=== PATIENT | male | born 1965 | race Caucasian/White ===

== ENCOUNTER 2021-04-21 09:45 | Outpatient (REF) | payer BC, SELFPAY ==
[2021-04-21 09:49] LABS: MANUAL DIFF FLAG NO
[2021-04-21 10:38] LABS: Basophils Absolute Auto 0.1 X10*3/uL (0.0-0.2); Basophils Percent Auto 1.2 % (0-2); Eosinophils Absolute Auto 0.2 X10*3/uL (0.0-0.4); Hematocrit 48.9 % (42.0-52.0); Hemoglobin 16.8 g/dl (14.0-18.0); Imm Gran Abs Auto 0.04 X10*3/uL (0.00-0.03); Imm Gran Pct Auto 0.6 % (0.0-0.4); Lymphocytes Absolute Auto 1.7 X10*3/uL (1.2-4.9); Lymphocytes Percent Auto 24.8 % (20-40); Mean Corpuscular HGB Conc 34.4 g/dl (31.0-36.0); Mean Corpuscular Hemoglobin 29.9 pg (27.0-33.0); Mean Corpuscular Volume 87.2 fL (80.0-98.0); Mean Platelet Volume 10.8 fL (9.4-12.4); Monocytes Absolute Auto 0.9 X10*3/uL (0.1-1.2); Neutrophils Percent Auto 57.4 % (45-73); Platelet Count 336 X10*3/uL (160-400); Red Blood Count 5.61 X10*6/uL (4.60-5.80); Red Cell Distribution Width 12.2 % (11.0-16.0); White Blood Count 6.9 X10*3/uL (4.8-10.8)
[2021-04-21 10:46] LABS: Estimated Average Glucose 111 mg/dL; Hemoglobin A1C 152.5518 umol/L; Hemoglobin A1c % 5.5 %
[2021-04-21 10:51] LABS: Alanine Aminotransferase 46 U/L (0-40); Albumin Level 4.5 g/dL (3.5-5.0); Alkaline Phosphatase 89 U/L (39-117); Anion Gap 13 (12-20); Aspartate Amino Transferase 21 U/L (5-37); Bilirubin Total 0.7 mg/dL (0.0-1.0); Blood Urea Nitrogen 11 mg/dL (9-16); Calcium 9.8 mg/dL (8.4-10.2); Carbon Dioxide 27 mmol/L (22-29); Chloride 106 mmol/L (96-108); Cholesterol 173 mg/dL; Estimated Glomerular Filt Rate > 60; Glucose Fasting 111 mg/dL (60-99); HDL Cholesterol 40 mg/dL; LDL Cholesterol Calculated 108 mg/dl; Potassium 4.2 mmol/L (3.3-5.1); Sodium 142 mmol/L (135-145); Total Protein 7.2 g/dL (6.5-8.0); Triglycerides 127 mg/dL
[2021-04-21 11:09] LABS: Appearance Urine CLEAR; Color Urine YELLOW; Glucose Urine UA NEG (NEG); Leukocyte Esterase Urine NEG (NEG); Nitrite Urine NEG (NEG); PH 7.5 (5.0-8.0); Specific Gravity - Urine 1.015 (1.005-1.025); Urine Blood NEG (NEG); Urine Ketones NEG (NEG); Urine Protein NEG (NEG-TRACE)
[2021-04-21 11:14] LABS: Creatinine Urine 102.13 mg/dL; Microalbum/Creatinine Ratio Ur 19.5 ug/mg cr
[2021-04-21 11:16] LABS: PSA,Total (Free>4and<10) 2.06 ng/mL (0.00-4.00)
[2021-04-21 12:27] LABS: Reflex LDLD? No
== END 2021-04-21 09:46 | disposition home or self-care (01) ==
LOC: HO.LNP 09:45
PROVIDERS: PCP Internal Medicine; Visit Provider Internal Medicine
DX: Z00.00 Encounter for general adult medical examination without abnormal findings (principal); R79.89 Other specified abnormal findings of blood chemistry; R73.09 Other abnormal glucose; E78.00 Pure hypercholesterolemia, unspecified
CPT/HCPCS: 80053; 80061; 81003; 82043; 83036; 84153; 85025

== ENCOUNTER 2021-10-16 07:39 | Day surgery (SDC) | payer BC, SELFPAY ==
[2021-10-12 11:52] VITALS: BMI 26.2
--- NOTE | 2021-10-14 12:01 | HO.ANESPROP2 ---
Documented by User: Chery Koo NP 10/14/21 12:01 HPI - Anesthesia Eval Consult details Narrative: 55yo M for Colonoscopy [facility] Past Medical History Medical History Elevated blood sugar Elevated cholesterol Surgical History Surgical History Hx of colonoscopy Social History Social History Patient Tobacco Use Status: Former Tobacco user Quit Date: 6 yrs ago Use of substances other than those prescribed or required for medical reasons: No Are you DNR?: No Advance Directives: No Advance Directives Information Provided: Yes Meds Allergies Allergy/AdvReac Type Severity Reaction Status Date / Time No Known Allergies Allergy Unverified 10/12/21 11:51 Home Medications Medication Instructions Recorded Confirmed Last Taken Type atorvastatin 80 mg tablet 80 mg PO DAILY 10/12/21 10/12/21 Unknown History Exam Exam Date and Time: October 14, 2021 1201 Height,Weight and Vital Signs: Height 6 ft 1.5 in Weight 91.172 kg Assessment and Plan Assessment Anesthesia Assessment: Chart Reviewed Documented by User: Shanti Muhammad MD 10/16/21 08:19 [facility] Past Medical History Medical History Elevated blood sugar Elevated cholesterol Family History Family history of problems with anesthesia: No Surgical History Surgical History Hx of colonoscopy History of Problems with Anesthesia: No Social History Social History Patient Tobacco Use Status: Former Tobacco user Quit Date: 6 yrs ago Use of substances other than those prescribed or required for medical reasons: No Are you DNR?: No Advance Directives: No Advance Directives Information Provided: Yes Meds Allergies Allergy/AdvReac Type Severity Reaction Status Date / Time No Known Allergies Allergy Unverified 10/12/21 11:51 Home Medications Medication Instructions Recorded Confirmed Last Taken Type atorvastatin 80 mg tablet 80 mg PO DAILY 10/12/21 10/12/21 Unknown History Exam Airway Mallampati Class: II TM Dist: >3cm Neck ROM: Full Heart: rrr Lungs: cta Assessment and Plan Assessment Anesthesia Assessment: Anesthesia Plan Discussed and Chart Reviewed Final Anesthetic Review Family History of Problems with Anesthesia: No History of Problems with Anesthesia: No NPO: Yes ASA Class: II Final Preanesthetic Review: No Changes in Pt Med Stat, Meds/Allgs Chart Reviewed and Consent Obtained/Reviewed Patient Risk: Intermediate Procedure Risk: Intermediate Anesthetic Plan Disposition: Standard PACU
[2021-10-16 08:23] VITALS: BP 173/109; PULSE 85; RESP 16; TEMP 36.9; O2SAT 98
[2021-10-16] MEDS: Lactated Ringers 1,000 ML 100 ML IVCONT (08:35)
--- NOTE | 2021-10-16 08:36 | P.HPSUR_ITS ---
Pre-Procedural Eval Section A Date of Service: 10/16/21 Section B Chief Complaint: screening Details of Present Illness: see H&P no changes Relevant Family History (Specify if Yes): No Relevant Social History: None Present Medications: None Medical History: No relevant PMH History of Previous Operations: No relevant previous surgery Allergies: Allergies Allergy/AdvReac Type Severity Reaction Status Date / Time No Known Allergies Allergy Unverified 10/12/21 11:51 Review of Systems Sugical H&P ROS: Negative: Constitution, Cardiovascular, Respiratory, Neurological, Psychiatric, Hem-Onc, Allergic/Immunologic, Gastrointestinal, Kassi tourinary, Musculoskeletal, Integumentary, Endocrine and Eyes/Ears/Nose/Throat Exam Surgical H&P Exam: Normal: HEENT, Normal: Heart, Normal: Lungs, Normal: Extremities, Normal: Abdomen, Normal: Skin and Normal: Neurological Plan Diagnosis/Plan: Unchanged I have reviewed the history and physical and performed a pertinent physical examination on my patient. No changes have occurred unless specified.
[2021-10-16 09:49] VITALS: BP 127/90; PULSE 99; RESP 20; TEMP 36.4; O2SAT 96
--- NOTE | 2021-10-16 09:51 | P.BOP_ITS ---
Brief Operative Note Date of Service: 10/16/21 Pre-op diagnosis: screening Post-op diagnosis: same (polyps) Procedure: colonoscopy Surgeon: Georges Aguirre Anesthesia: MAC Was an Meat Cutter Apprentice used for this Procedure?: No Estimated blood loss (mL): 5 Pathology: other (see req) Condition: stable Disposition: PACU
[2021-10-16 10:04] VITALS: BP 147/95; PULSE 99; RESP 17; O2SAT 98
[2021-10-16 10:19] VITALS: BP 158/106; PULSE 76; RESP 17; TEMP 36.4; O2SAT 98
--- NOTE | 2021-10-16 11:28 | OP_ITS ---
SURGEON: Georges Aguirre MD INDICATIONS: Colon cancer screening and prior history of adenomatous colon polyps. PREOPERATIVE DIAGNOSIS: POSTOPERATIVE DIAGNOSIS: PROCEDURE PERFORMED: Colonoscopy to the terminal ileum with snare polypectomy and biopsy. ESTIMATED BLOOD LOSS: COMPLICATIONS: ANESTHESIA: ASSISTANTS: SPECIMENS: MEDICATIONS: Monitored anesthesia care. DESCRIPTION OF PROCEDURE: History and physical were performed. The risks and benefits of the procedure were explained to the patient. Informed consent was obtained. The patient was placed in the left lateral decubitus position. A digital rectal exam was performed and was found to be normal. The Olympus pediatric video colonoscope was introduced into the rectum and advanced to the cecum without difficulty. The cecum was identified by transillumination, palpation, and identification of ileocecal valve. Examination was performed and the scope was removed. He tolerated the procedure well and was taken to recovery area in stable condition. FINDINGS: The terminal ileum was normal. The visualized colonic mucosa was normal. The quality of the prep was good. There were multiple polyps, which were removed with a combination of snare and biopsy forceps. At 85 cm, a single polyp was snared. At 65 cm, there were 3 polyps, the largest measuring approximately 12 mm, which was pedunculated. This was snared and the base was cauterized. Two other polyps were removed measuring less than 10 mm. At 60 cm, a single polyp was removed with biopsy forceps. At 30 cm were 2 polyps, which were snared and in the rectum was 1 polyp, which was removed with a snare. All polyps were less than 10 mm except as described above, but there was mild sigmoid diverticulosis with scattered diverticula throughout the remainder of the colon. Retroflexed examination was normal. IMPRESSION: Colon polyps. RECOMMENDATION: Follow up the biopsy results. MD BIANCA Malik/SHENA / [phone]
== END 2021-10-16 11:39 | disposition home or self-care (01) ==
PROVIDERS: PCP Internal Medicine; Visit Provider Internal Medicine Gastroenterology
PROC: 0DJD8ZZ Inspection of Lower Intestinal Tract, Via Natural or Artificial Opening Endoscopic (ICD-10-PCS; CPT 45378; principal; 2021-10-16 09:00)
DX: Z12.11 Encounter for screening for malignant neoplasm of colon (principal); Z86.010 Personal history of colon polyps; D12.3 Benign neoplasm of transverse colon; D12.4 Benign neoplasm of descending colon; D12.5 Benign neoplasm of sigmoid colon; K57.30 Diverticulosis of large intestine without perforation or abscess without bleeding; E78.00 Pure hypercholesterolemia, unspecified; R73.9 Hyperglycemia, unspecified; Z79.899 Other long term (current) drug therapy; Z87.891 Personal history of nicotine dependence
CPT/HCPCS: 45385; 45380; 88305

== ENCOUNTER 2021-10-20 11:23 | Outpatient (REF) | payer BC, SELFPAY ==
[2021-10-20 12:03] LABS: Alanine Aminotransferase 43 U/L (0-40); Albumin Level 4.3 g/dL (3.5-5.0); Alkaline Phosphatase 83 U/L (39-117); Aspartate Amino Transferase 20 U/L (5-37); Bilirubin Direct 0.3 mg/dL (0.0-0.5); Bilirubin Total 0.8 mg/dL (0.0-1.0); Cholesterol 268 mg/dL; Estimated Average Glucose 111 mg/dL; Glucose Fasting 114 mg/dL (60-99); HDL Cholesterol 47 mg/dL; Hemoglobin A1c % 5.5 %; LDL Cholesterol Calculated 196 mg/dl; Total Protein 7.2 g/dL (6.5-8.0); Triglycerides 125 mg/dL
== END 2021-10-20 11:24 | disposition home or self-care (01) ==
LOC: HO.LNP 11:23
PROVIDERS: Visit Provider Internal Medicine
DX: E78.00 Pure hypercholesterolemia, unspecified (principal); R73.03 Prediabetes
CPT/HCPCS: 80061; 80076; 82947; 83036

== ENCOUNTER 2022-04-20 11:49 | Outpatient (REF) | payer BC, SELFPAY ==
[2022-04-20 11:53] LABS: MANUAL DIFF FLAG NO
[2022-04-20 12:23] LABS: Basophils Absolute Auto 0.1 X10*3/uL (0.0-0.2); Basophils Percent Auto 1.2 % (0-2); Eosinophils Absolute Auto 0.2 X10*3/uL (0.0-0.4); Hematocrit 49.4 % (42.0-52.0); Hemoglobin 16.6 g/dl (14.0-18.0); Imm Gran Abs Auto 0.06 X10*3/uL (0.00-0.03); Imm Gran Pct Auto 0.8 % (0.0-0.4); Lymphocytes Percent Auto 26.5 % (20-40); Mean Corpuscular HGB Conc 33.6 g/dl (31.0-36.0); Mean Corpuscular Hemoglobin 29.4 pg (27.0-33.0); Mean Corpuscular Volume 87.4 fL (80.0-98.0); Mean Platelet Volume 10.3 fL (9.4-12.4); Monocytes Absolute Auto 0.9 X10*3/uL (0.1-1.2); Monocytes Percent Auto 12.2 % (2-11); Neutrophils Absolute Auto 4.2 x10*3/uL (2.0-8.3); Neutrophils Percent Auto 57.3 % (45-73); Platelet Count 266 X10*3/uL (160-400); Red Blood Count 5.65 X10*6/uL (4.60-5.80); Red Cell Distribution Width 12.4 % (11.0-16.0); White Blood Count 7.4 X10*3/uL (4.8-10.8)
[2022-04-20 12:31] LABS: Estimated Average Glucose 111 mg/dL; Hemoglobin A1c % 5.5 %
[2022-04-20 12:41] LABS: Alanine Aminotransferase 44 U/L (0-40); Albumin Level 4.5 g/dL (3.5-5.0); Alkaline Phosphatase 89 U/L (39-117); Anion Gap 15 (12-20); Appearance Urine Clear; Aspartate Amino Transferase 23 U/L (5-37); Bilirubin Total 1.1 mg/dL (0.0-1.0); Blood Urea Nitrogen 12 mg/dL (9-16); Calcium 9.5 mg/dL (8.4-10.2); Carbon Dioxide 26 mmol/L (22-29); Chloride 106 mmol/L (96-108); Cholesterol 145 mg/dL; Color Urine Yellow; Estimated Glomerular Filt Rate > 60; Glucose Fasting 108 mg/dL (60-99); Glucose Urine UA Negative (Negative); HDL Cholesterol 40 mg/dL; LDL Cholesterol Calculated 88 mg/dl; Leukocyte Esterase Urine Negative (Negative); Nitrite Urine Negative (Negative); Potassium 3.9 mmol/L (3.3-5.1); Sodium 143 mmol/L (135-145); Specific Gravity - Urine 1.025 (1.005-1.025); Total Protein 7.1 g/dL (6.5-8.0); Triglycerides 87 mg/dL; Urine Blood Negative (Negative); Urine Ketones Trace mg/dL (Negative); Urine Protein Trace mg/dL (Neg-Trace)
[2022-04-20 12:45] LABS: Bacteria Urine None Seen (None Seen); RBC Urine 0-2 /HPF (0-2); Squamous Epithelial Cell Urine 0-2 /HPF (0-2); WBC Urine 0-5 /HPF (0-5)
[2022-04-20 12:51] LABS: Creatinine Urine 275.09 mg/dL
== END 2022-04-20 11:50 | disposition home or self-care (01) ==
LOC: HO.LNP 11:49
PROVIDERS: Visit Provider Internal Medicine
DX: Z00.00 Encounter for general adult medical examination without abnormal findings (principal); Z12.5 Encounter for screening for malignant neoplasm of prostate; R73.03 Prediabetes; E78.00 Pure hypercholesterolemia, unspecified
CPT/HCPCS: 80053; 80061; 81001; 82043; 83036; 84153; 85025

== ENCOUNTER 2022-12-16 12:07 | Outpatient (REF) | payer BC, SELFPAY ==
[2022-12-16 14:05] LABS: Alanine Aminotransferase 41 U/L (0-40); Albumin Level 4.2 g/dL (3.5-5.0); Alkaline Phosphatase 69 U/L (39-117); Aspartate Amino Transferase 24 U/L (5-37); Bilirubin Direct 0.3 mg/dL (0.0-0.5); Bilirubin Total 0.6 mg/dL (0.0-1.0); Cholesterol 148 mg/dL; HDL Cholesterol 39 mg/dL; LDL Cholesterol Calculated 92 mg/dl; Total Protein 7.1 g/dL (6.5-8.0); Triglycerides 85 mg/dL
== END 2022-12-16 12:08 | disposition home or self-care (01) ==
LOC: HO.LNP 12:07
PROVIDERS: Visit Provider Internal Medicine
DX: E78.00 Pure hypercholesterolemia, unspecified (principal)
CPT/HCPCS: 80061; 80076

== ENCOUNTER 2023-04-29 10:15 | Outpatient (REF) | payer BC, SELFPAY ==
[2023-04-29 10:20] LABS: MANUAL DIFF FLAG NO
[2023-04-29 10:27] LABS: Basophils Absolute Auto 0.1 X10*3/uL (0.0-0.2); Basophils Percent Auto 0.7 % (0-2); Eosinophils Absolute Auto 0.2 X10*3/uL (0.0-0.4); Eosinophils Percent Auto 3.2 % (0-4); Hematocrit 48.8 % (42.0-52.0); Hemoglobin 16.6 g/dl (14.0-18.0); Imm Gran Abs Auto 0.03 X10*3/uL (0.00-0.03); Imm Gran Pct Auto 0.4 % (0.0-0.4); Lymphocytes Absolute Auto 1.6 X10*3/uL (1.2-4.9); Lymphocytes Percent Auto 21.9 % (20-40); Mean Corpuscular Hemoglobin 29.7 pg (27.0-33.0); Mean Corpuscular Volume 87.5 fL (80.0-98.0); Mean Platelet Volume 10.2 fL (9.4-12.4); Monocytes Absolute Auto 0.9 X10*3/uL (0.1-1.2); Monocytes Percent Auto 11.9 % (2-11); Neutrophils Absolute Auto 4.5 x10*3/uL (2.0-8.3); Neutrophils Percent Auto 61.9 % (45-73); Platelet Count 322 X10*3/uL (160-400); Red Blood Count 5.58 X10*6/uL (4.60-5.80); Red Cell Distribution Width 12.3 % (11.0-16.0); White Blood Count 7.2 X10*3/uL (4.8-10.8)
[2023-04-29 10:39] LABS: Appearance Urine Clear; Color Urine Yellow; Glucose Urine UA Negative (Negative); Leukocyte Esterase Urine Negative (Negative); Nitrite Urine Negative (Negative); PH 5.5 (5.0-9.0); Specific Gravity - Urine >= 1.030 (1.005-1.025); Urine Blood Negative (Negative); Urine Ketones Negative (Negative); Urine Protein Trace mg/dL (Neg-Trace)
[2023-04-29 10:41] LABS: Alanine Aminotransferase 61 U/L (0-40); Albumin Level 4.3 g/dL (3.5-5.0); Alkaline Phosphatase 66 U/L (39-117); Anion Gap 11 (12-20); Aspartate Amino Transferase 27 U/L (5-37); Bilirubin Total 0.8 mg/dL (0.0-1.0); Blood Urea Nitrogen 24 mg/dL (9-16); Calcium 9.7 mg/dL (8.4-10.2); Carbon Dioxide 29 mmol/L (22-29); Chloride 109 mmol/L (96-108); Cholesterol 141 mg/dL (<200); Estimated Glomerular Filt Rate > 60; Glucose Fasting 122 mg/dL (60-99); HDL Cholesterol 38 mg/dL (>40); LDL Cholesterol Calculated 88 mg/dL (<100); Potassium 3.9 mmol/L (3.3-5.1); Sodium 145 mmol/L (135-145); Total Protein 7.2 g/dL (6.5-8.0); Triglycerides 76 mg/dL (<150)
[2023-04-29 10:48] LABS: Estimated Average Glucose 117 mg/dL; Hemoglobin A1c % 5.7 % (<6.0)
[2023-04-29 11:04] LABS: Prostate Specific Antigen 3.07 ng/mL (<0.05-4.0)
[2023-04-29 11:05] LABS: Creatinine Urine 289.35 mg/dL; Microalbum/Creatinine Ratio Ur 6.9 ug/mg cr (<30)
[2023-04-29 11:11] LABS: WBC Urine 0-5 /HPF (0-5)
[2023-04-29 11:12] LABS: Bacteria Urine None Seen (None Seen); Hyaline Casts Urine 0-2 /LPF (0-2); RBC Urine 0-2 /HPF (0-2); Squamous Epithelial Cell Urine 0-2 /HPF (0-2)
== END 2023-04-29 10:16 | disposition home or self-care (01) ==
LOC: HO.LNP 10:15
PROVIDERS: Visit Provider Internal Medicine
DX: Z00.00 Encounter for general adult medical examination without abnormal findings (principal); Z12.5 Encounter for screening for malignant neoplasm of prostate; I10 Essential (primary) hypertension; E78.00 Pure hypercholesterolemia, unspecified; R73.03 Prediabetes
CPT/HCPCS: 80053; 80061; 81001; 82043; 82570; 83036; 84153; 85025

== ENCOUNTER 2023-07-11 08:29 | Outpatient (REF) | payer BC, SELFPAY ==
--- NOTE | ~2023-07-11 | FL_ITS ---
EXAMINATION: XR FLUOROSCOPY UPPER GI WITH AIR CLINICAL INFORMATION: Dysphagia. Reflux COMPARISON: None TECHNIQUE: Fluoroscopic air contrast upper GI examination was performed utilizing standard techniques with thin and thick barium and effervescent granules. Numerous spot images were obtained. FINDINGS: Lateral cine images of the oropharynx and hypopharynx demonstrate normal swallow mechanism with normal epiglottic inversion and soft palate elevation. There is trace laryngeal penetration with thick barium. No subglottic penetration or aspiration identified. Trace nasopharyngeal reflux present. Hypopharyngeal structures appear normal without evidence of mass or diverticulum. Persistent pooling of contrast noted in the vallecula and piriform sinuses, which cleared upon subsequent swallows. There was no significant cricopharyngeal achalasia. Dual and single contrast images of the esophagus demonstrate normal caliber, and contour. There is felinization of the mid and distal esophagus. No evidence of stricture, mass, or ulcerations identified. Esophageal peristalsis was normal. A small type I hiatal hernia is present. Gastroesophageal reflux is seen up to the thoracic inlet. Dual contrast and single contrast images of the stomach demonstrated a normal contour. Normal rugal fold pattern. No evidence of mass or ulcerations. Contrast freely passed into the gastric antrum and duodenal bulb without delay. Single and air-contrast images of the duodenal bulb demonstrate no abnormality. There is persistent thickening of folds in the first segment of the duodenum, which appear to persist throughout the exam (See example RF #1-7, image 10 of 10). This could indicate underlying peptic disease or residua of old peptic disease. The remainder of the duodenum has a normal appearance, course, and mucosal fold appearance. The imaged proximal jejunum has a normal fold pattern and caliber. No malrotation evident. FLUOROSCOPY TIME: 4 minutes 56 seconds Number of Spot Images: 10 Number of Cine: 10 DOSE AREA PRODUCT: 3522 uGy-m2 (microgray-meter squared) FL/FL barium swallow IMPRESSION: 1. Trace laryngeal penetration with thick barium. No subglottic or glottic aspiration. 2. Felinization of the mid distal esophagus. This is usually associated with reflux. 3. Small type I hiatal hernia 4. Moderate gastroesophageal reflux 5. Persistently thickened folds in the first segment of the duodenum, raising possibility of current or old peptic disease. Recommend correlation with EGD. This procedure was performed by Karri Moreira PA-C, and supervised by Dr. Carcamo
== END 2023-07-11 08:30 | disposition home or self-care (01) ==
LOC: HO.XRAY 08:29
PROVIDERS: PCP Internal Medicine; Visit Provider Internal Medicine
DX: R13.19 Other dysphagia (principal)
CPT/HCPCS: 74220

== ENCOUNTER → 2023-07-11 08:31 | Outpatient (BNV) | payer BC, SELFPAY | PROVIDERS: PCP Internal Medicine; Visit Provider Radiology Diagnostic Radiology | DX: R13.10 Dysphagia, unspecified (principal); K21.9 Gastro-esophageal reflux disease without esophagitis | CPT/HCPCS: 74221 ==

== ENCOUNTER 2023-08-04 11:27 | Outpatient (REF) | payer BC, SELFPAY ==
[2023-08-04 12:40] LABS: PSA,Total (Free>4and<10) 2.86 ng/mL (0.00-4.00)
[2023-08-04 12:42] LABS: TSH reflex Free T4 1.71 uIU/mL (0.32-4.0)
== END 2023-08-04 11:28 | disposition home or self-care (01) ==
LOC: HO.LNP 11:27
PROVIDERS: Visit Provider Internal Medicine
DX: Z12.5 Encounter for screening for malignant neoplasm of prostate (principal); R97.20 Elevated prostate specific antigen [PSA]
CPT/HCPCS: 84153; 84443

== ENCOUNTER 2023-11-04 12:11 | Outpatient (REF) | payer BC, SELFPAY ==
[2023-11-04 13:38] LABS: Estimated Average Glucose 117 mg/dL; Hemoglobin A1c % 5.7 % (<6.0)
[2023-11-04 13:47] LABS: Alanine Aminotransferase 46 U/L (0-40); Albumin Level 4.1 g/dL (3.5-5.0); Alkaline Phosphatase 64 U/L (39-117); Aspartate Amino Transferase 24 U/L (5-37); Bilirubin Direct 0.2 mg/dL (0.0-0.5); Bilirubin Total 0.7 mg/dL (0.0-1.0); Cholesterol 158 mg/dL (<200); Glucose Fasting 111 mg/dL (60-99); HDL Cholesterol 41 mg/dL (>40); LDL Cholesterol Calculated 99 mg/dL (<100); Total Protein 6.7 g/dL (6.5-8.0); Triglycerides 91 mg/dL (<150)
== END 2023-11-04 12:12 | disposition home or self-care (01) ==
LOC: HO.LNP 12:11
PROVIDERS: Visit Provider Internal Medicine
DX: R73.09 Other abnormal glucose (principal); E78.00 Pure hypercholesterolemia, unspecified
CPT/HCPCS: 80061; 80076; 82947; 83036

== ENCOUNTER 2023-12-20 10:04 | Outpatient (AMB) | payer BC, SELFPAY ==
--- NOTE | 2023-12-20 10:14 | MHC.OFFVIS ---
Vital Signs 12/20/23 10:23 Height 6 ft 2 in Weight 215 lb BMI 27.6 BP 150/8 H Blood Pressure Location Lt brachial Position Sitting Pulse 64 Intake Visit Reasons: infected sebaceous cyst groin area Intake Note: Patient is seen in office for evaluation of an infected cyst of the groin. Pt c/o:onset Tuesday right groin cyst, at the time was red, sore, hard to the touch, size of a marble, discharge, started on antbx yesterday, currently looking better, some mininal bloody discharge Service Superintendent Required: No Accompanied by: Self / Same As Patient Allergies No Known Allergies Allergy (Unverified 12/20/23 10:16) Medication List - Last Reconciled 12/20/23 by Braxton Lan MD atorvastatin 80 mg PO DAILY HPI Comments Details: 58 year old male patient presenting for evaluation of a right groin infected cyst. He reports a palpable lump in this location for many years however just recently it became increasingly painful, red and swollen. Yesterday it popped producing a large collection of pus. He was also started on oral antibiotics. This morning he reports the pain and redness have improved. He keeps the wound covered with a bandage. He denies a previous infection at the site. He denies fever or chills. PFSH Medical History Elevated blood sugar Elevated cholesterol Surgical History Hx of colonoscopy Social History Patient Tobacco Use Status: Former Tobacco user Review of Systems Const All systems reviewed & are unremarkable except as noted in HPI and below Denies chills, Denies fever(s), Denies headache(s), Denies poor appetite and Denies weakness ENT Denies headache(s) Card Denies chest pain, Denies irregular heart rhythm, Denies palpitations and Denies dyspnea Resp Denies cough, Denies excessive phlegm production and Denies dyspnea GI Denies abdominal pain, Denies bloating, Denies change in bowel habits, Denies constipation, Denies heartburn, Denies diarrhea, Denies nausea and Denies vomiting Denies difficulty urinating and Denies urinary frequency Musc Denies back pain, Denies muscle weakness and Denies numbness Skin/Breast Reports furuncle, Denies changing lesions and Denies unusual bruising Neuro Denies headache(s), Denies numbness, Denies paresthesias and Denies weakness Psych Denies anxiety and Denies depression Endo Denies palpitations Siva/Lymph Denies lymphadenopathy Physical Exam Vital Signs: Last Vital Signs Pulse 64 12/20/23 10:23 BP 150/8 H 12/20/23 10:23 BMI result Body Mass Index 27.6 Const General: cooperative and no acute distress Nutritional Appearance: well nourished Orientation/consciousness: patient oriented x3 Limitations: no limitations HEENT Head: Yes normocephalic and Yes atraumatic Ears: hearing grossly normal bilaterally Resp Effort & Inspection: normal respiratory effort, no audible wheezes, no cough and no respiratory distress Cardio Jugular venous distension: no JVD GI Other: Right groin with an area of inflammation with some purulence discharge noted on the bandage. No residual abscess is palpable at this time. Wound appears to be adequately drained. Inspection: Yes normal to inspection Abdomen image: 1. Site of infected cyst the groin Skin Other: Warm, dry, no rash; skin abscess as noted above in GI Neuro General: patient oriented x3 Extrem General: Yes no clubbing, cyanosis or edema Assessment & Plan Assessment & Plan (1) Abscess: Code(s): L02.91 - Cutaneous abscess, unspecified Category: Medical (2) Epidermal inclusion cyst: Code(s): L72.0 - Epidermal cyst Category: Medical Plan 58-year-old Male patient presenting with acute onset of an infected sebaceous cyst in the right groin. This spontaneously opened and drained a large collection of purulent material. He now reports feeling improved with less pain and redness. No incision and drainage is required at this time as the wound is adequately drained. I recommended he continue local wound care with dry sterile dressings and continue the antibiotics as previously prescribed. He should return in 1 month for follow-up examination and if the cyst is still present arrangements could be made for an excision. Coding Level of Care Code New Pt Level 4 (73995) Diagnoses Abscess L02.91 Epidermal inclusion cyst L72.0
[2023-12-20 10:23] VITALS: BP 150/8; PULSE 64; BMI 27.6
== END 2023-12-20 10:31 | disposition home or self-care (01) ==
PROVIDERS: PCP Internal Medicine; Visit Provider Surgery
DX: L02.91 Cutaneous abscess, unspecified (principal); L72.0 Epidermal cyst
CPT/HCPCS: 99203

== ENCOUNTER → 2023-12-20 10:04 | Outpatient (BNVA) | payer BC, SELFPAY | PROVIDERS: PCP Internal Medicine; Visit Provider Surgery ==

== ENCOUNTER 2024-02-03 11:09 | Outpatient (REF) | payer BC, SELFPAY ==
[2024-02-03 12:35] LABS: PSA,Total (Free>4and<10) 2.57 ng/mL (0.00-4.00)
== END 2024-02-03 11:10 | disposition home or self-care (01) ==
LOC: HO.LNP 11:09
PROVIDERS: Visit Provider Internal Medicine
DX: R97.20 Elevated prostate specific antigen [PSA] (principal); Z12.5 Encounter for screening for malignant neoplasm of prostate
CPT/HCPCS: 84153

== ENCOUNTER 2024-05-03 11:11 | Outpatient (REF) | payer BC, SELFPAY ==
[2024-05-03 11:16] LABS: MANUAL DIFF FLAG NO
[2024-05-03 12:08] LABS: Appearance Urine Clear; Color Urine Dark Yellow; Glucose Urine UA Negative (Negative); Leukocyte Esterase Urine Trace (Negative); Nitrite Urine Negative (Negative); PH 6.5 (5.0-9.0); Specific Gravity - Urine 1.025 (1.005-1.025); UMIC TRIGGER UACC YES; Urine Blood Negative (Negative); Urine Ketones Trace mg/dL (Negative); Urine Protein Trace mg/dL (Neg-Trace)
[2024-05-03 12:11] LABS: Basophils Absolute Auto 0.1 X10*3/uL (0.0-0.2); Basophils Percent Auto 1.1 % (0-2); Eosinophils Absolute Auto 0.3 X10*3/uL (0.0-0.4); Eosinophils Percent Auto 3.9 % (0-4); Hemoglobin 16.5 g/dl (14.0-18.0); Imm Gran Abs Auto 0.03 X10*3/uL (0.00-0.03); Imm Gran Pct Auto 0.4 % (0.0-0.4); Lymphocytes Absolute Auto 1.5 X10*3/uL (1.2-4.9); Lymphocytes Percent Auto 20.8 % (20-40); Mean Corpuscular HGB Conc 33.7 g/dl (31.0-36.0); Mean Corpuscular Hemoglobin 29.9 pg (27.0-33.0); Mean Corpuscular Volume 88.9 fL (80.0-98.0); Mean Platelet Volume 9.8 fL (9.4-12.4); Monocytes Absolute Auto 0.9 X10*3/uL (0.1-1.2); Monocytes Percent Auto 12.2 % (2-11); Neutrophils Absolute Auto 4.5 x10*3/uL (2.0-8.3); Neutrophils Percent Auto 61.6 % (45-73); Platelet Count 250 X10*3/uL (160-400); Red Blood Count 5.51 X10*6/uL (4.60-5.80); Red Cell Distribution Width 12.4 % (11.0-16.0); White Blood Count 7.3 X10*3/uL (4.8-10.8)
[2024-05-03 12:21] LABS: Estimated Average Glucose 123 mg/dL; Hemoglobin A1C 168.4388 umol/L; Hemoglobin A1c % 5.9 % (<6.0); Total Hemoglobin (HGBA1C) 4166.1301 umol/L
[2024-05-03 12:22] LABS: Bacteria Urine None Seen (None Seen); RBC Urine 0-2 /HPF (0-2); Squamous Epithelial Cell Urine 0-2 /HPF (0-2); WBC Urine 0-5 /HPF (0-5)
[2024-05-03 12:30] LABS: Creatinine Urine 328.64 mg/dL; Microalbum/Creatinine Ratio Ur 5.4 ug/mg cr (<30)
[2024-05-03 12:41] LABS: Alanine Aminotransferase 79 U/L (0-40); Albumin Level 4.3 g/dL (3.5-5.0); Alkaline Phosphatase 67 U/L (39-117); Anion Gap 11 (12-20); Aspartate Amino Transferase 41 U/L (5-37); Bilirubin Total 0.8 mg/dL (0.0-1.0); Blood Urea Nitrogen 19 mg/dL (9-16); Calcium 9.6 mg/dL (8.4-10.2); Carbon Dioxide 28 mmol/L (22-29); Chloride 108 mmol/L (96-108); Cholesterol 163 mg/dL (<200); Estimated Glomerular Filt Rate 55; Glucose Fasting 114 mg/dL (60-99); HDL Cholesterol 39 mg/dL (>40); LDL Cholesterol Calculated 104 mg/dL (<100); Potassium 3.8 mmol/L (3.3-5.1); Sodium 143 mmol/L (135-145); Total Protein 7.1 g/dL (6.5-8.0); Triglycerides 101 mg/dL (<150)
--- OUTSIDE RECORDS SUMMARY | 2024-05-09 01:51 | XMS_ITS ---
Author Organization Sher Fuentes MD Address [address] [place] [phone] Care Team Providers Care Control Room Helper Name Role Phone Sher Fuentes Primary Care Provider RESULTS Component Value Reference Range Notes PSA,Total (Free>4and<10) Reviewed date:02/05/2024 12:34:07 PM Interpretation: Performing Lab:[facility], [address] [place] [phone] Notes/Report: PSA,Total (Free>4and<10) 2.57 0.00-4.00 ng/mL A Free PSA was not performed: The percentage of Free PSA can be used to enhance the differentiation of prostate cancer from benign prostatic disease in subjects whose PSA levels are between 4.0 and 10.0 ng/mL. For subjects whose PSA levels are below 4.0 or above 10.0 ng/mL, the risk of prostate cancer is determined on the basis of the PSA alone. Therefore the % Free PSA is recommended only for those subjects whose PSA levels are between 4.0 and 10.0 ng/mL. PSA methodology: Oropeza Alinity i Chemiluminescent Microparticle Immunoassay (CMIA) REASON FOR VISIT 6 month PSA Encounters Encounter Location Date Provider Diagnosis Sher Fuentes MD [address] [place] [phone] 02/03/2024 Sher Fuentes Rising PSA level R97.20 ASSESSMENTS Encounter Date Diagnosis Assessment Notes Treatment Notes Treatment Clinical Notes 02/03/2024 Rising PSA level (ICD-10 - R97.20) PLAN OF TREATMENT Next Appt Details Provider Name:Sher lawrence, 05/10/2024 02:30:00 PM, [address] [place] [address], [address], [place], [phone], Provider Name:Sher lawrence, 08/07/2024 07:30:00 AM, [address] [place] [address], [address], [place], [phone],
--- OUTSIDE RECORDS SUMMARY | 2024-05-09 01:51 | XMS_ITS ---
Author Organization Sher Fuentes MD Address [address] [place], [place] [phone] Care Team Providers Care Lien Searcher Name Role Phone Sher Fuentes Primary Care Provider ALLERGIES No Known Allergies REASON FOR REFERRAL Reason sebaceous cyst loca l infection of the skin and subcutaneous tissue Diagnosis 1 Sebaceous cyst (L72. 3) Diagnosis 2 Local infection of t he skin and subcutaneous tissue, unspecified (L08.9) Referral Organization Sher Fuentes MD Referring Provider First Name Sher Referring Provider Last Name Gina Referring Provider Speciality Internal M edicine Referred Provider Braxton Lan Referred Provider Specialty Surgery General Notes Earline Ricks 02:32:20 PM EDT > [phone] 6v Rambo Annette 12/19/2023 02:47:34 PM EDT > patient is aware of Tri gil Patti A 02/03/2024 01:23:34 PM EDT > notes recd from visit Referral Priority Routine Referral Appointment Date 12/20/2023 REASON FOR VISIT ? testicle infection right side MEDICATIONS Medication SIG (Take, Route, Frequency, Duration) Notes Start Date End Date Status Paxlovid 20 x 150 MG & 10 x 100MG as directed Orally 2 tabs nirm and one tab riton for 5 days 12/18/2021 Not-Taking Ibuprofen 800 MG 1 tablet Orally Thre e times a day for 30 day(s) 10/31/2014 Not-Taking Atorvastatin Calcium 80 MG TAKE ONE TABLET BY MOUTH EVERY DAY Active Valsartan-hydroCHLOROthia zide 160-12.5 MG TAKE ONE TABLET BY MOUTH ONCE DAILY Active Flexeril 5 MG 1 tablet Orally two times a day for 10 days 04/20/2013 Not-Taki ng Cephalexin 750 MG 1 capsule Orally 3 times a day for 10 day(s) 12/19/2023 Active VITAL SIGNS BMI 27.86 kg/m2 12/19/2023 Blood pressure systolic 152 mm Hg 12/19/19 24 Blood pressure diastolic 84 mm Hg 024 Height 74 in 12/19/2023 Weight 217 lbs 12/19/2023 Encounters Encounter Location Date Provider Diagnosis Sher Fuentes MD [address] [place] [address] [place] [phone] 12/19/2023 Sher Fuentes Sebaceous cyst L72.3 and Local infection of the skin and subcutaneous tissue, unspecified L08.9 ASSESSMENTS Encounter Date Diagnosis Assessment Notes Treatment Notes Treatment Clinical Notes 12/19/2023 Sebaceous cyst (ICD-10 - L72.3) 12/19/2023 Local infection of the skin and subcutaneous tissue, unspecified (ICD-10 - L08.9) referral to dr flores, patient verbalized understanding of medication and directions for use PLAN OF TREATMENT Medication Medication Name Sig Start Date Stop Date Notes Cephalexin 750 MG 1 capsule Orally 3 t imes a day for 10 day(s) 12/19/2023 Treatment Notes Assessment Notes Local infection of the skin and subcutaneous tissue, unspecified referral to dr flores, patient verbaliz ed understanding of medication and directions for use Referrals Referral Date Details 12/20/2023 12/20/2023, sebaceou s cyst local infection of the skin and subcutaneous tissue, Braxton Lan Next Appt Details Provider Name:Sher lawrence, 05/10/2024 02:30:00 PM, [address] [place] [address], Suite [facility], [place], [place], [phone], Provider Name:Sher lawrence, 08/07/2024 07:30:00 AM, [address] [place] [address], Suite [facility], [place], [place], [phone], Progress Notes * Examination Category Sub-Category Detail Notes General Examination GENERAL APPEARANCE: alert, w ell hydrated, in no distress SKIN: abnormal with a 2 in ch area of induration and surrounding erythema in the inguinal area with blood and pus drainingl Consultation Request Notes Referral Date Referring Provider Referred Provider Not jose manuel 12/19/2023 Sher Fuentes John sebaceous cyst local infection of the skin and subcutaneous tissue
--- OUTSIDE RECORDS SUMMARY | 2024-05-09 01:51 | XMS_ITS ---
Author Organization Sher Fuentes MD Address [address] [place], [place] [id number] Care Team Providers Care Aws Developer Name Role Phone Sher Fuentes Primary Care Provider [phone] RESULTS Component Value Reference Range Notes PSA,Total (Free>4and<10) (No t yet reviewed by provider) Interpretation:repeat in 3 Month July Performing Lab:[facility], [address] [place] [phone] Notes/Report: PSA,Total (Free>4and<10) 3.00 0.00-4.00 ng/mL A Free PSA was not [...] Oropeza Alinity i Chemiluminescent Microparticle Immunoassay (CMIA) Complete Blood Count Auto Di ff Reviewed date:05/03/2024 12:57:27 PM Interpretation: Performing Lab:[facility], [address] [place] [phone] Notes/Report: White Blood Count 7.3 4.8-10.8 X10*3/uL Red Blood Count 5.51 4.60-5.80 X10*6/uL Hemoglobin 16.5 14.0-18.0 g/dl Hematocrit 49.0 42.0-52.0 % Mean Corpuscular Volume 88.9 80.0-98.0 fL Mean Corpuscular Hemoglobin 29.9 27.0-33.0 pg Mean Corpuscular HGB Conc 33.7 31.0-36.0 g/dl Red Cell Distribution Width 12.4 11.0-16.0 % Platelet Count 250 160-400 X10*3/uL Mean Platelet Volume 9.8 9.4-12.4 fL Neutrophils Percent Auto 61.6 45-73 % Imm Gran Pct Auto 0.4 0.0-0.4 % Lymphocytes Percent Auto 20.8 20-40 % Monocytes Percent Auto 12.2 2-11 % Eosinophils Percent Auto 3.9 0-4 % Basophils Percent Auto 1.1 0-2 % NRBC Pct Auto 0.0 0.0-0.2 /100WBC Neutrophils Absolute Auto 4.5 2.0-8.3 x10*3/u L Imm Gran Abs Auto 0.03 0.00-0.03 X10*3/uL Lymphocytes Absolute Auto 1.5 1.2-4.9 X10*3/u L Monocytes Absolute Auto 0.9 0.1-1.2 X10*3/uL Eosinophils Absolute Auto 0.3 0.0-0.4 X10*3/u L Basophils Absolute Auto 0.1 0.0-0.2 X10*3/uL NRBC Abs Auto 0.000 0.0-0.012 X10*3/uL Comprehensive [place]. Panel Fa st Reviewed date:05/03/2024 03:21:31 PM Interpretation: Performing Lab:[facility], [address] [place] [phone] Notes/Report: Sodium 143 135-145 mmol/L Potassium 3.8 3.3-5.1 mmol/L Chloride 108 96-108 mmol/L Carbon Dioxide 28 22-29 mmol/L Anion Gap 11 12-20 Blood Urea Nitrogen 19 9-16 mg/dL Creatinine 1.33 0.5-1.4 mg/dL Estimated Glomerular Filt Rate 55 Chronic Kidney Disease: Estimated GFR < 60 mL/min/1.73m2 Severe Kidney Disease: Estimated GFR < 15 mL/min/1.73m2 Glucose Fasting 114 60-99 mg/dL A fasting glucose from 100-125 mg/dl is considered impaired (pre-diabetes). Calcium 9.6 8.4-10.2 mg/dL Bilirubin Total 0.8 0.0-1.0 mg/dL Aspartate Amino Transferase 41 5-37 U/L Alanine Aminotransferase 79 0-40 U/L Total Protein 7.1 6.5-8.0 g/dL Albumin Level 4.3 3.5-5.0 g/dL Alkaline Phosphatase 67 39-117 U/L Lipid Panel Reviewed date:05/03/2024 03:21:39 PM Interpretation: Performing Lab:[address] [phone] Notes/Report: Triglycerides 101 <150 mg/dL Desirable Triglyceride: less than 150 mg/dL Borderline High Triglyceride 150-199 mg/dL High Triglyceride: 200-499 mg/dL Very High Triglyceride: greater than or equal to 5OO mg/dL Cholesterol 163 <200 mg/dL Desirable Cholesterol: less than 200 mg/dL Borderline High Cholesterol: 200-239 mg/dL High Cholesterol: greater than 239 mg/dL LDL Cholesterol Calculated 104 <100 mg/dL Desirable LDL: less than 100 mg/dL Near Optimal/Above Optimal LDL: 110-129 mg/dL Borderline High LDL: 130-159 mg/dL High LDL: 160-189 mg/dL Very High LDL: greater than or equal to 190 mg/dL HDL Cholesterol 39 >40 mg/dL Desirable HDL: greater than 40 mg/dL Note: This HDL assay may give artificially low results in patients with liver disease. Microalbumin, Random Reviewed date:05/03/2024 03:18:50 PM Interpretation: Performing Lab:[address] [phone] Notes/Report: Creatinine Urine 328.64 Microalbumin Urine 18.0 Microalbum/Creatinine Ratio Ur 5.4 <30 ug/mg cr Albumin/Creatinine Ratio Reference Ranges: Normal: < 30 ug/mg creatinine Microalbuminuria: 30 - 300 ug/mg creatinine Clinical Albuminuria: > 300 ug/mg creatinine Hemoglobin A1c Reviewed date:05/03/2024 03:21:14 PM Interpretation: Performing Lab:[facility], [address] [place] [phone] Notes/Report: Hemoglobin A1c % 5.9 <6.0 % Hemoglobin A1C Reference Range Adults: 4.8 - 6.0 % Non diabetic: < 6.0 % Goal: < 7.0 % Additional Action Suggested: > 8.0 % Note: Hemoglobin A1c results are invalid for patients with abnormal amounts of HbF. Blood transfusions may impact the HbA1c concentration in the patient sample. Estimated Average Glucose 123 eAG = Estimated average glucose which is %A1C expressed as average glucose, using the formula of the G5B-Bjqfukh Average Glucose study (ADAG), Diabetes Care, Vol.31,#8, Dec. 2007 UA ClnCatch+Micro w/rflx Cul t Reviewed date:05/03/2024 03:21:54 PM Interpretation: Performing Lab:[facility], [address] [place] [phone] Notes/Report: Urine, Clean Catch Color Urine Dark Yellow Appearance Urine Clear PH 6.5 5.0-9.0 Glucose Urine UA Negative Negative mg/dL Urine Blood Negative Negative Specific [place] - Urine 1.025 1.005-1.025 Urine Protein Trace Neg-Trace mg/dL Urine Ketones Trace Negative mg/dL Nitrite Urine Negative Negative Leukocyte Esterase Urine Trace Negative RBC Urine 0-2 0-2 /HPF WBC Urine 0-5 0-5 /HPF Squamous Epithelial Cell Urine 0-2 0-2 /HPF Bacteria Urine None Seen None Seen Hyaline Casts Urine 3-5 0-2 /LPF REASON FOR VISIT FASTING LABS IMMUNIZATIONS Vaccine Route Administration Date Status Comme nts Fluarix Quadrivalent - 150 IM Intramuscular 05/03/2024 Adm inistered Encounters Encounter Location Date Provider Diagnosis Sher Fuentes MD [address] [place] [address] Drive [address] [place], [place] [phone] 05/03/2024 Sher Fuentes Blood tests for rout ine general physical examination Z00.00 ; Encounter for immunization Z23 ; Prediabetes R73.09 ; Pure hypercholesterolemia E78.00 and Essential hypertension I10 ASSESSMENTS Encounter Date Diagnosis Assessment Notes Treatment Notes Treatment Clinical Notes 05/03/2024 [address] tests for rout ine general physical examination (ICD-10 - Z00.00) 05/03/2024 Encounter for immuni zation (ICD-10 - Z23) 05/03/2024 Prediabetes (ICD-10 - R73.09) 05/03/2024 Pure hypercholestero lemia (ICD-10 - E78.00) 05/03/2024 Essential hypertensi on (ICD-10 - I10) PLAN OF TREATMENT Pending Test Test Name Order Date PSA,Total (Free>4and<10) 05/03/2024 Next Appt Details Provider Name:Sher Carvalho ier, 05/10/2024 02:30:00 PM, [address] [place] [address], [address], [place], [phone], Provider Name:Sher Carvalho ier, 08/07/2024 07:30:00 AM, [address] [place] [address], [address], [place], [phone],
--- OUTSIDE RECORDS SUMMARY | 2024-05-09 01:52 | XMS_ITS | Patient Health Record ---
Author Organization Sher Fuentes MD Address [address] [place], [place] [id number] Care Team Providers Care Electrical Engineering Draftsperson Name Role Phone Sher Fuentes Primary Care Provider [phone] ALLERGIES No Known Allergies RESULTS Component Value Reference Range Notes FL barium swallow Reviewed date:07/25/2023 12:40:08 PM Interpretation: Performing Lab: Notes/Report: [address] [address] Fluoroscopy Report Signed Patient: Braxton Cortes MR#: [id number] : 1965 Acct:[id number] Age/Sex: 57 / M ADM Date: 07/11/23 Loc: HO.XRAY Attending Dr: Sher Fuentes MD Ordering Physician: Sher Fuentes MD Date of Service: 07/11/23 Procedure(s): FL barium swallow Accession Number(s): [id number] cc: Sher Fuentes MD EXAMINATION: XR FLUOROSCOPY UPPER GI WITH AIR CLINICAL INFORMATION: Dysphagia. Reflux COMPARISON: None TECHNIQUE: Fluoroscopic air contrast upper GI examination was performed utilizing standard techniques with thin and thick barium and effervescent granules. Numerous spot images were obtained. FINDINGS: Lateral cine images of the oropharynx and hypopharynx demonstrate normal swallow mechanism with normal epiglottic inversion and soft palate elevation. There is trace laryngeal penetration with thick barium. No subglottic penetration or aspiration identified. Trace nasopharyngeal reflux present. Hypopharyngeal structures appear normal without evidence of mass or diverticulum. Persistent pooling of contrast noted in the vallecula and piriform sinuses, which cleared upon subsequent swallows. There was no significant cricopharyngeal achalasia. Dual and single contrast images of the esophagus demonstrate normal caliber, and contour. There is felinization of the mid and distal esophagus. No evidence of stricture, mass, or ulcerations identified. Esophageal peristalsis was normal. A small type I hiatal hernia is present. Gastroesophageal reflux is seen up to the thoracic inlet. Dual contrast and single contrast images of the stomach demonstrated a normal contour. Normal rugal fold pattern. No evidence of mass or ulcerations. Contrast freely passed into the gastric antrum and duodenal bulb without delay. Single and air-contrast images of the duodenal bulb demonstrate no abnormality. There is persistent thickening of folds in the first segment of the duodenum, which appear to persist throughout the exam (See example RF #1-7, image 10 of 10). This could indicate underlying peptic disease or residua of old peptic disease. The remainder of the duodenum has a normal appearance, course, and mucosal fold appearance. The imaged proximal jejunum has a normal fold pattern and caliber. No malrotation evident. FLUOROSCOPY TIME: 4 minutes 56 seconds Number of Spot Images: 10 Number of Cine: 10 DOSE AREA PRODUCT: 3522 uGy-m2 (microgray-meter squared) FL/FL barium swallow IMPRESSION: 1. Trace laryngeal penetration with thick barium. No subglottic or glottic aspiration. 2. Felinization of the mid distal esophagus. This is usually associated with reflux. 3. Small type I hiatal hernia 4. Moderate gastroesophageal reflux 5. Persistently thickened folds in the first segment of the duodenum, raising possibility of current or old peptic disease. Recommend correlation with EGD. This procedure was performed by Karri Moreira PA-C, and supervised by Dr. Carcamo Dictated By: David Carcamo MD Signed By: <Electronically signed by David Carcamo MD in OV> 07/25/23 1210 DD/ 0911 TD/TT: Maintenance Painter: PSA,Total (Free>4and<10) Reviewed date:08/04/2023 01:20:57 PM Interpretation: Performing Lab:[facility], [address] [place] [phone] Notes/Report: PSA,Total (Free>4and<10) 2.86 0.00-4.00 ng/mL A Free PSA was not [...] Oropeza Alinity i Chemiluminescent Microparticle Immunoassay (CMIA) TSH reflex Free T4 Reviewed date:08/04/2023 12:51:06 PM Interpretation: Performing Lab:[address] [phone] Notes/Report: TSH reflex Free T4 1.71 0.32-4.0 uIU/mL Hold Gold Reviewed date:11/04/2023 03:43:28 PM Interpretation: Performing Lab:[facility], [address] [place] [phone] Notes/Report: Hold Gold See Note Specimen held untested for 24 hours; Call to request Chemistry testing. Liver Panel Reviewed date:11/04/2023 03:43:50 PM Interpretation: Performing Lab:[address] [phone] Notes/Report: Bilirubin Total 0.7 0.0-1.0 mg/dL Bilirubin Direct 0.2 0.0-0.5 mg/dL Aspartate Amino Transferase 24 5-37 U/L Alanine Aminotransferase 46 0-40 U/L Total Protein 6.7 6.5-8.0 g/dL Albumin Level 4.1 3.5-5.0 g/dL Alkaline Phosphatase 64 39-117 U/L Glucose Fasting Reviewed date:11/04/2023 03:42:50 PM Interpretation: Performing Lab:[address] [phone] Notes/Report: Glucose Fasting 111 60-99 mg/dL A fasting glucose from 100-125 mg/dl is considered impaired (pre-diabetes). Lipid Panel with Reflex Reviewed date:11/04/2023 03:43:21 PM Interpretation: Performing Lab:[facility], [address] [place] [phone] Notes/Report: Triglycerides 91 <150 mg/dL Desirable Triglyceride: less than 150 mg/dL Borderline High Triglyceride 150-199 mg/dL High Triglyceride: 200-499 mg/dL Very High Triglyceride: greater than or equal to 5OO mg/dL Cholesterol 158 <200 mg/dL Desirable Cholesterol: less than 200 mg/dL Borderline High Cholesterol: 200-239 mg/dL High Cholesterol: greater than 239 mg/dL LDL Cholesterol Calculated 99 <100 mg/dL Desirable LDL: less than 100 mg/dL Near Optimal/Above Optimal LDL: 110-129 mg/dL Borderline High LDL: 130-159 mg/dL High LDL: 160-189 mg/dL Very High LDL: greater than or equal to 190 mg/dL HDL Cholesterol 41 >40 mg/dL Desirable HDL: greater than 40 mg/dL Note: This HDL assay may give artificially low results in patients with liver disease. Hemoglobin A1c Reviewed date:11/04/2023 03:42:59 PM Interpretation: Performing Lab:[facility], [address] [place] [phone] Notes/Report: Hemoglobin A1c % 5.7 <6.0 % Hemoglobin A1C Reference Range Adults: 4.8 - 6.0 % Non diabetic: < 6.0 % Goal: < 7.0 % Additional Action Suggested: > 8.0 % Note: Hemoglobin A1c results are invalid for patients with abnormal amounts of HbF. Blood transfusions may impact the HbA1c concentration in the patient sample. Estimated Average Glucose 117 eAG = Estimated average glucose which is %A1C expressed as average glucose, using the formula of the I9X-Ufeeamc Average Glucose study (ADAG), Diabetes Care, Vol.31,#8, Dec. 2007 Hold Green Gel Reviewed date:02/05/2024 12:30:39 PM Interpretation: Performing Lab:[facility], [address] [place] [phone] Notes/Report: Hold Green Gel See Note Specimen held untested for 24 hours; Call to request Chemistry testing. PSA,Total (Free>4and<10) Reviewed date:02/05/2024 12:34:07 PM Interpretation: Performing Lab:[facility], [address] [place] [phone] Notes/Report: PSA,Total (Free>4and<10) 2.57 0.00-4.00 ng/mL A [...] 4.0 and 10.0 ng/mL. PSA methodology: Oropeza Grafightersnity i Chemiluminescent Microparticle Immunoassay (CMIA) PSA,Total (Free>4and<10) (No t yet reviewed by provider) Interpretation:repeat in 3 Month July Performing Lab:[facility], [address] [place] [phone] Notes/Report: PSA,Total (Free>4and<10) 3.00 0.00-4.00 ng/mL A [...] ff Reviewed date:05/03/2024 12:57:27 PM Interpretation: Performing Lab:[facility], [address] [place] [phone] Notes/Report: White Blood Count 7.3 4.8-10.8 X10*3/uL [...] NRBC Abs Auto 0.000 0.0-0.012 X10*3/uL Comprehensive [place]. Panel Fa st Reviewed date:05/03/2024 03:21:31 PM Interpretation: Performing Lab:[facility], [address] [place] [phone] Notes/Report: Sodium 143 135-145 mmol/L Potassium 3.8 [...] Panel Reviewed date:05/03/2024 03:21:39 PM Interpretation: Performing Lab:[address] [phone] Notes/Report: Triglycerides 101 <150 mg/dL Desirable Triglyceride: [...] Random Reviewed date:05/03/2024 03:18:50 PM Interpretation: Performing Lab:[facility], [address] [place] [phone] Notes/Report: Creatinine Urine 328.64 Microalbumin Urine 18.0 Microalbum/Creatinine Ratio Ur 5.4 <30 ug/mg cr Albumin/Creatinine Ratio Reference Ranges: Normal: < 30 ug/mg creatinine Microalbuminuria: 30 - 300 ug/mg creatinine Clinical Albuminuria: > 300 ug/mg creatinine Hemoglobin A1c Reviewed date:05/03/2024 03:21:14 PM Interpretation: Performing Lab:[address] [phone] Notes/Report: Hemoglobin A1c % 5.9 <6.0 % [...] average glucose, using the formula of the N2H-Rjzifno Average Glucose study (ADAG), Diabetes Care, Vol.31,#8, Dec. 2007 UA ClnCatch+Micro w/rflx Cul t Reviewed date:05/03/2024 03:21:54 PM Interpretation: Performing Lab:[facility], [address] [place] [phone] Notes/Report: Urine, Clean Catch Color Urine Dark Yellow Appearance Urine Clear PH 6.5 5.0-9.0 Glucose Urine UA Negative Negative mg/dL Urine Blood Negative Negative Specific [place] - Urine 1.025 1.005-1.025 Urine Protein Trace Neg-Trace mg/dL Urine Ketones Trace Negative mg/dL Nitrite Urine Negative Negative Leukocyte Esterase Urine Trace Negative RBC Urine 0-2 0-2 /HPF WBC Urine 0-5 0-5 /HPF Squamous Epithelial Cell Urine 0-2 0-2 /HPF Bacteria Urine None Seen None Seen Hyaline Casts Urine 3-5 0-2 /LPF REASON FOR REFERRAL Reason sebaceous cyst loca [...] Notes Earline Ricks 02:32:20 PM EDT > [id number] 6v Rambo Annette 12/19/2023 02:47:34 PM EDT > patient is aware of Tri gil Patti A 02/03/2024 01:23:34 PM EDT > notes recd from visit Referral Priority Routine Referral Appointment Date 12/20/2023 MEDICATIONS Medication SIG (Take, Route, Frequency, Duration) Notes Start Date End Date Status Paxlovid 20 x 150 MG & 10 x 100MG as directed Orally 2 tabs nirm and one tab riton for 5 days 12/18/2021 Not-Taking Ibuprofen 800 MG 1 tablet Orally Thre e times a day for 30 day(s) 10/31/2014 Not-Taking Cephalexin 750 MG 1 capsule Orally 3 times a day for 10 day(s) 12/19/2023 Active Valsartan-hydroCHLOROthia zide 160-12.5 MG TAKE ONE TABLET BY MOUTH EVERY DAY for 30 Active Atorvastatin Calcium 80 MG TAKE ONE TABLET BY MOUTH EVERY DAY for 90 Active Flexeril 5 MG 1 tablet Orally two times a day for 10 days 04/20/2013 Not-Taki ng IMMUNIZATIONS Vaccine Route Administration Date Status Comme nts DECLINED, FLU Unknown 04/17/2013 Administered SARS-COV-2 Pfizer Unknown 12/18/2020 Administered SARS-COV-2 Pfizer Unknown 11/28/2020 Administered SARS-COV-2 Moderna Unknown 06/07/2021 Administered Fluarix Quadrivalent - 150 IM Intramuscular 05/03/2024 Adm inistered DECLINED, FLU Unknown 04/16/2014 Refused Fluarix Quadrivalent Unknown 04/11/2018 Refused Fluarix Quadrivalent Unknown 07/23/2019 Refused Fluarix Quadrivalent Unknown 03/25/2020 Refused Fluarix Quadrivalent Unknown 04/27/2021 Refused Fluarix Quadrivalent Unknown 04/30/2022 Refused SOCIAL HISTORY Tobacco Use: Social History Observation Description Date Details (start date - stop date) Former Smoker NA - NA Sex Assigned At : Social History Observation Description Sex Assigned At Unknown Tobacco Use/Smoking Question Answer Notes Patient is a former smoker How long has it been since y ou last smoked? > 10 years Additional Findings: Tobacco Non-User Fo rmer smoker, currently using no form of tobacco Alcohol Screen Question Answer Notes Did you have a drink contain ing alcohol in the past year? Yes How often did you have a dri nk containing alcohol in the past year? Monthly or less (1 point) How many drinks did you have on a typical day when you were drinking in the past year? 1 or 2 drinks (0 point) How often did you have 6 or more drinks on one occasion in the past year? Never (0 point) Points 1 Interpretation Negative PROBLEMS Problem Type ICD Code Onset Dates Problem Status W/U Status Risk SNOMED Code Notes Problem Tubular adenoma (D36.9) Active confirmed 327626207 Problem Kidney stone (N20.0) Active confirmed 9 0156693 Problem Gastroesophageal ref lux disease without esophagitis (K21.9) Active confirmed 729473916 Problem Essential hypertensi on (I10) Active confirmed 79517520 Problem Prediabetes (R73.09) Active confirmed 9 045587 Problem Pure hypercholesterolemia (E78.00) Active confirmed 431698401 VITAL SIGNS Blood pressure diastolic 84 mm Hg 12/19/2023 Height 74 in 12/19/2023 Blood pressure systolic 152 mm Hg 12/19/2023 Weight 217 lbs 12/19/2023 BMI 27.86 kg/m2 12/19/2023 Encounters Encounter Location Date Provider Diagnosis Sher Fuentes MD [address] [place] [id number] 08/04/2023 Sher Fuentes Rising PSA level R97 .20 Sher Fuentes MD [address] [place] [address] Drive [address] [place] [id number] 11/04/2023 Sher Fuentes Prediabetes R73.09 a nd Pure hypercholesterolemia E78.00 Sher Fuentes MD [address] [place] [address] Drive [address] [place] [id number] 05/03/2024 Sher Fuentes Blood tests for rout ine general physical examination Z00.00 ; Encounter for immunization Z23 ; Prediabetes R73.09 ; Pure hypercholesterolemia E78.00 and Essential hypertension I10 Sher Fuentes MD [address] [place] [id number] 02/03/2024 Sher Fuentes Rising PSA level R97 .20 Sher Fuentes MD [address] [place] [address] [id number] 11/11/2023 Sher Fuentes Gastroesophageal ref lux disease without esophagitis K21.9 ; Prediabetes R73.09 ; Pure hypercholesterolemia E78.00 and Essential hypertension I10 Sher Fuentes MD [address] [place] [id number] 12/19/2023 Sher Fuentes Sebaceous cyst L72.3 and Local infection of the skin and subcutaneous tissue, unspecified L08.9 ASSESSMENTS Encounter Date Diagnosis Assessment Notes Treatment Notes Treatment Clinical Notes 08/04/2023 Rising PSA level (IC D-10 - R97.20) 11/04/2023 Prediabetes (ICD-10 - R73.09) 11/04/2023 Pure hypercholestero lemia (ICD-10 - E78.00) 05/03/2024 Encounter for immunization (ICD-10 - Z23) 05/03/2024 Blood tests for rout ine general physical examination (ICD-10 - Z00.00) 02/03/2024 Rising PSA level (IC D-10 - R97.20) 11/11/2023 Gastroesophageal ref lux disease without esophagitis (ICD-10 - K21.9) is not being bothered so doesn't want meds.will contnue to monitor 11/11/2023 Prediabetes (ICD-10 - R73.09) needs to diet 12/19/2023 Local infection of t he skin and subcutaneous tissue, unspecified (ICD-10 - L08.9) referral to dr flores, patient verbalized understanding of medication and directions for use 12/19/2023 Sebaceous cyst (ICD- 10 - L72.3) 05/03/2024 Prediabetes (ICD-10 - R73.09) 11/11/2023 Pure hypercholestero lemia (ICD-10 - E78.00) good ldl, will continue cuirrent regiment 05/03/2024 Pure hypercholestero lemia (ICD-10 - E78.00) 11/11/2023 Essential hypertensi on (ICD-10 - I10) well controlled, will continue current regiment 05/03/2024 Essential hypertensi on (ICD-10 - I10) PLAN OF TREATMENT Pending Test Test Name Order Date Electrocardiogram (EKG) 10/06/2012 Electrocardiogram (EKG) 11/06/2015 Electrocardiogram (EKG) 11/19/2016 CT ABD & PELVIS NO CONTRAST 01/26/2018 PSA,Total (Free>4and<10) 05/03/2024 FL barium swallow 05/05/2023 Next Appt Details Provider Name:Sher lawrence, 05/10/2024 02:30:00 PM, [address] [place] [address], [address], [place], [place], [phone], Provider Name:Sher lawrence, 08/07/2024 07:30:00 AM, [address] [place] [address], [address], [place], [place], [phone], Insurance Providers Payer Name Payer Address Payer Phone Subscriber Number Group Number Insured Name Patient Relationship to Insured Coverage Start Date Coverage End Date [employer] [address] [place], [place] [phone] [id number] Braxton Carrillo Self - patient is the insured MEDICAL (GENERAL) HISTORY Medical History History ICD Code Refuses flu shot--13 Colonoscopy -04/07/[address] Aguirre (had colon polyp) - 5 year repeattubular adenoma: Colonoscopy 10/16/21 pending path
--- OUTSIDE RECORDS SUMMARY | 2024-05-09 01:52 | XMS_ITS | Patient Health Record ---
Author Organization [facility] Address [address] [place] [address] Care Team Providers Care Nutritional Chemist Name Role Phone Gina KLEIN, Sher Primary Care Provider Georges Lehman Jr Unavailable ALLERGIES No Known Allergies REASON FOR REFERRAL No Information MEDICATIONS Medication SIG (Take, Route, Frequency, Duration) Notes Start Date End Date Status Atorvastatin Calcium 80 MG 1 tablet Oral ly Once a day Active Colyte with Flavor Packs 240 GM As directed Orally Over the specified time. for 1 day(s) 02/18/2016 Active MiraLax (colon prep) 17 GM/SCOOP mixed with Gatorade or Crystal Light Orally begin at 5:00 p.m. the day before the procedure for 1 day 07/13/2021 Active IMMUNIZATIONS Vaccine Route Administration Date Status Comme nts Influenza Unknown 07/13/2021 Refused SOCIAL HISTORY Tobacco Use: Social History Observation Description Date Details (start date - stop date) Former Smoker NA - 07/06/2017 Sex Assigned At : Social History Observation Description Sex Assigned At Unknown Tobacco Use/Smoking Question Answer Notes Patient is a former smoker When did you stop smoking? 07/06/2017 How long has it been since you last smoked? 1-5 years PROBLEMS Problem Type ICD Code Onset Dates Problem Status W/U Status Risk SNOMED Code Notes Problem Colon cancer screening (Z12.11) Active confirmed 007332553 Problem Encounter for other preprocedural examination (Z01.818) Active confirmed 460490845 PLAN OF TREATMENT Future Test Test Name Order Date COLONOSCOPY 02/18/2016 COLONOSCOPY 07/13/2021 Insurance Providers Payer Name Payer Address Payer Phone Subscriber Number Group Number Insured Name Patient Relationship to Insured Coverage Start Date Coverage End Date [facility] PROFESSIONAL CLAIMS [address] [place] [address] [id number] SW[employer]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
== END 2024-05-03 11:12 | disposition home or self-care (01) ==
LOC: HO.LNP 11:11
PROVIDERS: Visit Provider Internal Medicine
DX: Z00.00 Encounter for general adult medical examination without abnormal findings (principal); Z12.5 Encounter for screening for malignant neoplasm of prostate; R73.09 Other abnormal glucose; E78.00 Pure hypercholesterolemia, unspecified; I10 Essential (primary) hypertension
CPT/HCPCS: 80053; 80061; 81001; 82043; 82570; 83036; 84153; 85025

== ENCOUNTER 2024-06-22 11:36 | Day surgery (SDC) | payer BC, SELFPAY ==
--- OUTSIDE RECORDS SUMMARY | 2024-06-07 15:07 | XMS_ITS ---
Author Organization [facility] Address [address] [place] [address] Care Team Providers Care Early Childhood Education Coordinator Name Role Phone Sher Fuentes MD Primary Care Provider Georges Lehman Jr ALLERGIES No Known Allergies REASON FOR VISIT Patient presents today for esophageal obstruction MEDICATIONS Medication SIG (Take, Route, Frequency, Duration) Notes Start Date End Date Status Atorvastatin Calcium 80 MG 1 tablet Oral ly Once a day Active Valsartan-hydroCHLOROthiazi de 160-12.5 MG TAKE ONE TABLET BY MOUTH EVERY DAY Oral for 30 Active SOCIAL HISTORY Tobacco Use: Social History Observation [...] W/U Status Risk SNOMED Code Notes Problem Dysphagia, unspecified type (R13.10) Active confirmed 11183997 Problem Abnormal upper gastrointestinal barium series (R93.3) Active confirmed 034436363 VITAL SIGNS BMI 27.33 kg/m2 06/06/2024 Blood pressure systolic 000 mm Hg 06/06/19 25 Blood pressure diastolic 00 mm Hg 025 Height 73.5 in 06/06/2024 Temperature 96.8 degrees Fahrenheit 06/06/19 25 Weight 210 lbs 06/06/2024 Encounters Encounter Location Date Provider Diagnosis [facility] [address] [place] [address] 06/06/2024 Georges Aguirre Jr Colon cancer screening Z12.11 ; Dysphagia, unspecified type R13.10 and Abnormal upper gastrointestinal barium series R93.3 ASSESSMENTS Encounter Date Diagnosis Assessment Notes Treatment Notes Treatment Clinical Notes 06/06/2024 Colon cancer screeni ng (ICD-10 - Z12.11) 06/06/2024 Dysphagia, unspecifi ed type (ICD-10 - R13.10) Swallowing problems material was printed 06/06/2024 Abnormal upper gastrointestinal barium series (ICD-10 - R93.3) PLAN OF TREATMENT Treatment Notes Assessment Notes Dysphagia, unspecified type Swallowing p roblems material was printed Future Test Test Name Order Date UPPER GI ENDOSCOPY 06/06/2024 COLONOSCOPY 06/06/2024 Next Appt Details Follow Up: prn, 1 Year, Reas on: Provider Name:Georges frazier Jr, 06/22/2024 01:20:00 PM, [address] [place] [address] , [place], [place], [phone], Progress Notes * Examination Category Sub-Category Detail Notes General Examination GENERAL APPEARANCE: in no ac saige distress HEAD: normocephalic EYES: sclera non-icteric NECK/THYROID: no lymphadenopathy HEART: S1, S2 normal, no mu rmurs CHEST: normal shape and exp ansion LUNGS: clear to auscultatio n bilaterally ABDOMEN: soft, nontender, non distended, bowel sounds present, no organomegaly SKIN: anicteric EXTREMITIES: no clubbing, cyanosi s, or edema PSYCH: cognitive function i ntact ORAL CAVITY: mucosa moist
--- OUTSIDE RECORDS SUMMARY | 2024-06-07 15:07 | XMS_ITS ---
Author Organization Sher Fuentes MD Address [address] [place] [phone] Care Team Providers Care Billing Auditor Name Role Phone Sher Fuentes Primary Care Provider [phone] ALLERGIES No Known Allergies RESULTS Component Value Reference Range Notes Occult Blood, Stool, Guaiac Reviewed date:05/10/2024 03:07:57 PM Interpretation:Negative Performing Lab: Notes/Report: Negative Occult Blood, Stool, Guaiac Neg REASON FOR REFERRAL Reason esophageal obstructi on needs upper endoscopy done ins referral needed Diagnosis 1 Esophageal obstructi on (K22.2) Referral Organization Sher Fuentes MD Referring Provider First Name Sher Referring Provider Last Name Gina Referring Provider Speciality Internal M edicine Referred Provider Georges Alfredo Referred Provider Specialty Gastroentero logy General Notes Earline Ricks 11:34:31 AM EST > info faxed Rambo Annette 05/17/2024 01:48:45 PM EST > was told by office patient is on a cancel list for [place] Referral Priority Routine REASON FOR VISIT ANNUAL EXAM MEDICATIONS Medication SIG (Take, Route, Frequency, Duration) Notes Start Date End Date Status Atorvastatin Calcium 80 MG TAKE ONE TABLET BY MOUTH EVERY DAY Active Valsartan-hydroCHLOROthia zide 160-12.5 MG TAKE ONE TABLET BY MOUTH EVERY DAY Active Flexeril 5 MG 1 tablet Orally two times a day for 10 days 04/20/2013 Not-Taki ng Paxlovid 20 x 150 MG & 10 x 100MG as directed Orally 2 tabs nirm and one tab riton for 5 days 12/18/2021 Not-Taking Ibuprofen 800 MG 1 tablet Orally Thre e times a day for 30 day(s) 10/31/2014 Not-Taking SOCIAL HISTORY Tobacco Use: Social History Observation [...] W/U Status Risk SNOMED Code Notes Problem Esophageal obstruction (K22.2) Active confirmed 885080239 VITAL SIGNS BMI 27.73 kg/m2 05/10/2024 Blood pressure systolic 132 mm Hg 05/10/20 24 Blood pressure diastolic 70 mm Hg 024 Height 74 in 05/10/2024 Weight 216 lbs 05/10/2024 Encounters Encounter Location Date Provider Diagnosis Sher Fuentes MD [address] [facility] [address] [place] [phone] 05/10/2024 Sher Fuentes Esophageal obstructi on K22.2 ; Annual physical exam Z00.00 ; Rising PSA level R97.20 ; Prediabetes R73.09 ; Pure hypercholesterolemia E78.00 ; Essential hypertension I10 ; Colon cancer screening Z12.11 and Depression screening Z13.31 ASSESSMENTS Encounter Date Diagnosis Assessment Notes Treatment Notes Treatment Clinical Notes 05/10/2024 Esophageal obstructi on (ICD-10 - K22.2) referral to dr alfredo 05/10/2024 Annual physical exam (ICD-10 - Z00.00) labs reviewed and discussed with patient 05/10/2024 Rising PSA level (IC D-10 - R97.20) will continue to monitor 05/10/2024 Prediabetes (ICD-10 - R73.09) encourarage exercise and weight loss, no need for medication at this time 05/10/2024 Pure hypercholestero lemia (ICD-10 - E78.00) doing well on meds, will contnue curent regiment 05/10/2024 Essential hypertensi on (ICD-10 - I10) stable, will continue current regiment 05/10/2024 Colon cancer screeni ng (ICD-10 - Z12.11) guaiac negative 05/10/2024 Depression screening (ICD-10 - Z13.31) negative screening PLAN OF TREATMENT Medication Medication Name Sig Start Date Stop Date Notes Atorvastatin Calcium 80 MG TAKE ONE TABL ET BY MOUTH EVERY DAY Valsartan-hydroCHLOROthiazid e 160-12.5 MG TAKE ONE TABLET BY MOUTH EVERY DAY Treatment Notes Assessment Notes Esophageal obstruction referral to dr naveed grey Annual physical exam labs reviewed and d iscussed with patient Rising PSA level will continue to mon itor Prediabetes encourarage exercise and weight loss, no need for medication at this time Pure hypercholesterolemia doing well on meds, will contnue curent regiment Essential hypertension stable, will cont inue current regiment Colon cancer screening guaiac negative Depression screening negative screening Future Test Test Name Order Date PSA,Total (Free>4and<10) 11/08/2024 Referrals Referral Date Details esophageal obstructi on needs upper endoscopy done ins referral needed , Georges Alfredo Next Appt Details Follow Up: 6 Months, Reason: prediabetes Provider Name:Sher lawrence, 08/07/2024 07:30:00 AM, [address] [place] [address], [address] [place] [address], [phone], Provider Name:Sher lawrence, 11/08/2024 07:00:00 AM, [address] [place] [address], [address] [facility], [place], [place], [phone], Provider Name:Sher lawrence, 11/16/2024 09:00:00 AM, [address] [place] [address], [address] [facility], [place], [place], [phone], Provider Name:Sher lawrence, 05/09/2025 07:30:00 AM, [address], [address], [place], [place], [phone], Provider Name:Sher Carvalho howard, 05/16/2025 08:30:00 AM, [address] [facility], [address], [place], [place], [phone], Progress Notes * Examination Category Sub-Category Detail Notes General Examination GENERAL APPEARANCE: well dev eloped, well nourished, in no acute distress HEAD: normocephalic, atrau matic EYES: pupils equal, round, reactive to light and accommodation, sclera non- icteric EARS: normal THROAT: clear NECK/THYROID: neck supple, full ra nge of motion, no cervical lymphadenopathy, no bruits HEART: regular rate and rhy thm, S1, S2 normal, no murmurs LUNGS: clear to auscultatio n bilaterally ABDOMEN: soft, nontender, non distended, bowel sounds present, normal, no organomegaly , no masses palpable NEUROLOGIC: nonfocal, motor stre ngth normal upper and lower extremities, sensory exam intact SKIN: warm and dry, no josh picious lesions , abnormal with a one inch subcutaneous lesion rt axilla consistent with sebaceous cyst EXTREMITIES: no clubbing, cyanosi s, or edema MALE GENITOURINARY: no penile lesions or discharge , no testicular mass , testes descended bilaterally RECTAL EXAM: normal tone, no exte rnal hemorrhoids, no masses palpable, prostate normal, stool guaiac negative ORAL CAVITY: mucosa moist History and Physical Notes * HPI (History of Present Illness) Category Sub-Category Detail Notes Depression Screening PHQ-9 Little inte rest or pleasure in doing things: Not at all Feeling down, depressed, or hopeless: No t at all Trouble falling or staying asleep, or sl eeping too much: Not at all Feeling tired or having little energy: N ot at all Poor appetite or overeating: Not at all Feeling bad about yourself o r that you are a failure, or have let yourself or your family down: Not at all Trouble concentrating on thi ngs, such as reading the newspaper or watching television: Not at all Moving or speaking so slowly that other people could have noticed; or the opposite, being so fidgety or restless that you have been moving around a lot more than usual: Not at all Thoughts that you would be b dhara off or of hurting yourself in some way: Not at all Total Score: 0 Interpretation and Intervention Depression Melissa petit Findings: Negative Follow-Up for Depression: : review of PH Q-9 found negative result, no follow-up needed SDOH Questions SDOH Questions In the past year have you been worried about losing housing?: No In the past year have you or any family members you live with been unable to get any of the following when it was really needed? Check all that apply:: None Communication Needs Communication Needs Does the patient have a hearing impairment: Yes ?If yes, what is the hearing impairment? : Hard of hearing, Hearing Aids Does the patient have a vision impairmen t?: Yes ?If yes, what is the vision impairment?: Glasses Does the patient have a cognition impair ment?: No Consultation Request Notes Referral Date Referring Provider Referred Provider Not es 05/10/2024 Sher Fuentes Bernard esopha geal obstruction needs upper endoscopy done ins referral needed
--- OUTSIDE RECORDS SUMMARY | 2024-06-07 15:07 | XMS_ITS | Patient Health Record ---
Author Organization [facility] Address [address] [place] [address] Care Team Providers Care Manager Body Name Role Phone Sher Fuentes MD Primary Care Provider Georges Lehman Jr Unavailable ALLERGIES No Known Allergies REASON FOR REFERRAL Referring Provider First Name Sher Referring Provider Last Name Gina Referring Provider Speciality Internal M edicine Referred Organization [facility] Referred Provider Georges Johnson Jr Referred Address [address],[place], [place],[address], Referred Provider Specialty Gastroentero logy General Notes Carol Magana 025 03:32:58 PM EST > REQUESTED AN O BLUE REFERRAL DATED 06-01-[address] MANE' OFFICE FOR UPCOMING APPT WITH DR. JOHNSON Referral Priority Routine MEDICATIONS Medication SIG (Take, Route, Frequency, Duration) Notes Start Date End Date Status Atorvastatin Calcium 80 MG 1 tablet Oral ly Once a day Active Valsartan-hydroCHLOROthiazi de 160-12.5 MG TAKE ONE TABLET BY MOUTH EVERY DAY Oral for 30 Active IMMUNIZATIONS Vaccine Route Administration Date Status Comme nts Influenza Unknown 05/16/2024 Administered Influenza Unknown 07/13/2021 Refused SOCIAL HISTORY Tobacco [...] Problem Colon cancer screening (Z12.11) Active confirmed 227484715 Problem Encounter for other preprocedural examination (Z01.818) Active confirmed 293300714 Problem Abnormal upper gastrointestinal barium series (R93.3) Active confirmed 506564272 Problem Dysphagia, unspecified type (R13.10) Active confirmed 82589227 VITAL SIGNS Temperature 96.8 degrees Fahrenheit 06/06/2024 Blood pressure diastolic 00 mm Hg 06/06/2024 Height 73.5 in 06/06/2024 Blood pressure systolic 000 mm Hg 06/06/2024 Weight 210 lbs 06/06/2024 BMI 27.33 kg/m2 06/06/2024 Encounters Encounter Location Date Provider Diagnosis [facility] [address] [place] [address] 06/06/2024 Georges Johnson Jr Colon cancer screening Z12.11 ; Dysphagia, unspecified type R13.10 and Abnormal upper gastrointestinal barium series R93.3 ASSESSMENTS Encounter Date Diagnosis Assessment Notes Treatment Notes Treatment Clinical Notes 06/06/2024 Colon cancer screeni ng (ICD-10 - Z12.11) 06/06/2024 Dysphagia, unspecifi ed type (ICD-10 - R13.10) Swallowing problems material was printed 06/06/2024 Abnormal upper gastrointestinal barium series (ICD-10 - R93.3) PLAN OF TREATMENT Future Test Test Name Order Date COLONOSCOPY 02/18/2016 COLONOSCOPY 07/13/2021 UPPER GI ENDOSCOPY 06/06/2024 COLONOSCOPY 06/06/2024 Next Appt Details Provider Name:Georges frazier Jr, 06/22/2024 01:20:00 PM, [address] [facility] , [place], [place], [phone], Insurance Providers Payer Name Payer Address Payer Phone Subscriber Number Group Number Insured Name Patient Relationship to Insured Coverage Start Date Coverage End Date [facility] PROF[employer] [facility] [address] [place] [address] [phone] [id number] 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
--- OUTSIDE RECORDS SUMMARY | 2024-06-07 15:08 | XMS_ITS ---
Author Organization Sher Fuentes MD Address [address] [place] [phone] Care Team Providers Care Contact Lens Flashing Puncher Name Role Phone Sher Fuentes Primary Care Provider RESULTS Component Value Reference Range Notes PSA,Total (Free>4and<10) Reviewed date:02/05/2024 12:34:07 PM Interpretation: Performing Lab:[facility], [address] [place] [phone] Notes/Report: PSA,Total (Free>4and<10) 2.57 0.00-4.00 ng/mL A [...] Sher Fuentes MD [address] [place] [phone] 02/03/2024 Sher Fuentes Rising PSA level R97.20 ASSESSMENTS Encounter Date Diagnosis Assessment Notes Treatment Notes Treatment Clinical Notes 02/03/2024 Rising PSA level (ICD-10 - R97.20) PLAN OF TREATMENT Next Appt Details Provider Name:Sher Barrettbolivar zarater, 08/07/2024 07:30:00 AM, [address] [place] [address], [address], [place], [phone], Provider Name:Sher Argueta Deven lawrence, 11/08/2024 07:00:00 AM, [address] [place] [address], [address], [place], [phone], Provider Name:Sher Ellie Deven lawrence, 11/16/2024 09:00:00 AM, [address] [place] [address], [address], [place], [phone], Provider Name:Sher Ellie Deven lawrence, 05/09/2025 07:30:00 AM, [address] [place] [address], [address], [place], [phone], Provider Name:Sher Ellie Deven lawrence, 05/16/2025 08:30:00 AM, [address] [place] [address], [address], [place], [phone],
--- OUTSIDE RECORDS SUMMARY | 2024-06-07 15:08 | XMS_ITS ---
Author Organization Sher Fuentes MD Address [address] [place], [place] [phone] Care Team Providers Care Missing Persons Investigator Name Role Phone Sher Fuentes Primary Care Provider RESULTS Component Value Reference Range Notes PSA,Total (Free>4and<10) (No t yet reviewed by provider) Interpretation:repeat in 3 Month July Performing Lab:[facility], [address] [place] [phone] Notes/Report: PSA,Total (Free>4and<10) 3.00 0.00-4.00 ng/mL A [...] ff Reviewed date:05/03/2024 12:57:27 PM Interpretation: Performing Lab:[facility], [address] [place] [phone] Notes/Report: White Blood Count 7.3 4.8-10.8 X10*3/uL [...] NRBC Abs Auto 0.000 0.0-0.012 X10*3/uL Comprehensive [place]. Panel Fa st Reviewed date:05/03/2024 03:21:31 PM Interpretation: Performing Lab:[facility], [address] [place] [phone] Notes/Report: Sodium 143 135-145 mmol/L Potassium 3.8 [...] Panel Reviewed date:05/03/2024 03:21:39 PM Interpretation: Performing Lab:[address] [phone] Notes/Report: Triglycerides 101 <150 mg/dL Desirable Triglyceride: [...] Random Reviewed date:05/03/2024 03:18:50 PM Interpretation: Performing Lab:[address] [phone] Notes/Report: Creatinine Urine 328.64 Microalbumin Urine 18.0 Microalbum/Creatinine Ratio Ur 5.4 <30 ug/mg cr Albumin/Creatinine Ratio Reference Ranges: Normal: < 30 ug/mg creatinine Microalbuminuria: 30 - 300 ug/mg creatinine Clinical Albuminuria: > 300 ug/mg creatinine Hemoglobin A1c Reviewed date:05/03/2024 03:21:14 PM Interpretation: Performing Lab:[facility], [address] [place] [phone] Notes/Report: Hemoglobin A1c % 5.9 <6.0 % [...] average glucose, using the formula of the N2E-Wptfobm Average Glucose study (ADAG), Diabetes Care, Vol.31,#8, Dec. 2007 UA ClnCatch+Micro w/rflx Cul t Reviewed date:05/03/2024 03:21:54 PM Interpretation: Performing Lab:[facility], [address] [place] [phone] Notes/Report: Urine, Clean Catch Color Urine Dark Yellow Appearance Urine Clear PH 6.5 5.0-9.0 Glucose Urine UA Negative Negative mg/dL Urine Blood Negative Negative Specific Crocker - Urine 1.025 1.005-1.025 Urine Protein Trace [...] Location Date Provider Diagnosis Sher Fuentes MD [address] [place] [address] Drive [address] [place], [place] [phone] 05/03/2024 Sher Fuentes Blood tests for rout [...] Next Appt Details Provider Name:Sher Carvalho ier, 08/07/2024 07:30:00 AM, [address] [place] [address], [address] [facility], [place], [phone], Provider Name:Sher Carvalho ier, 11/08/2024 07:00:00 AM, [address] [place] [address], [address] [facility], [place], [phone], Provider Name:Sher Carvalho ier, 11/16/2024 09:00:00 AM, [address] [place] [address], [place] [address], [place], [phone], Provider Name:Sher Carvalho ier, 05/09/2025 07:30:00 AM, [address] [place] [address], [address] [facility], [place], [phone], Provider Name:Sher Carvalho ier, 05/16/2025 08:30:00 AM, [address] [place] [address], [address] [facility], [place], [phone],
--- OUTSIDE RECORDS SUMMARY | 2024-06-07 15:09 | XMS_ITS | Patient Health Record ---
Author Organization Sher Fuentes MD Address [address] [place], [place] [id number] Care Team Providers Care Clinical Services Director Name Role Phone Sher Fuentes Primary Care Provider [phone] ALLERGIES No Known Allergies RESULTS Component Value Reference Range Notes FL barium swallow Reviewed date:07/25/2023 12:40:08 PM Interpretation: Performing Lab: Notes/Report: [address] [address] Fluoroscopy Report Signed Patient: Braxton Cortes MR#: [id number] : 1965 Acct:[id number] Age/Sex: 57 / M ADM Date: 07/11/23 Loc: HO.XRAY Attending Dr: Sher Fuentes MD Ordering Physician: Sher Fuentes MD Date of Service: 07/11/23 Procedure(s): FL barium swallow Accession Number(s): [id number] cc: Sher Fuentes MD EXAMINATION: XR FLUOROSCOPY [...] in OV> 07/25/23 1210 DD/ 0911 TD/TT: Pull Over: PSA,Total (Free>4and<10) Reviewed date:08/04/2023 01:20:57 PM Interpretation: Performing Lab:[facility], [address] [place] [phone] Notes/Report: PSA,Total (Free>4and<10) 2.86 0.00-4.00 ng/mL A [...] T4 Reviewed date:08/04/2023 12:51:06 PM Interpretation: Performing Lab:[address] [id number] Notes/Report: TSH reflex Free T4 1.71 0.32-4.0 uIU/mL Hold Gold Reviewed date:11/04/2023 03:43:28 PM Interpretation: Performing Lab:[facility], [address] [place] [phone] Notes/Report: Hold Gold See Note Specimen held untested for 24 hours; Call to request Chemistry testing. Liver Panel Reviewed date:11/04/2023 03:43:50 PM Interpretation: Performing Lab:[address] [phone] Notes/Report: Bilirubin Total 0.7 0.0-1.0 mg/dL Bilirubin Direct 0.2 0.0-0.5 mg/dL Aspartate Amino Transferase 24 5-37 U/L Alanine Aminotransferase 46 0-40 U/L Total Protein 6.7 6.5-8.0 g/dL Albumin Level 4.1 3.5-5.0 g/dL Alkaline Phosphatase 64 39-117 U/L Glucose Fasting Reviewed date:11/04/2023 03:42:50 PM Interpretation: Performing Lab:[address] [address] Notes/Report: Glucose Fasting 111 60-99 mg/dL A fasting glucose from 100-125 mg/dl is considered impaired (pre-diabetes). Lipid Panel with Reflex Reviewed date:11/04/2023 03:43:21 PM Interpretation: Performing Lab:[facility], [address] [place] [phone] Notes/Report: Triglycerides 91 <150 mg/dL Desirable Triglyceride: [...] A1c Reviewed date:11/04/2023 03:42:59 PM Interpretation: Performing Lab:[facility], [address] [place] [phone] Notes/Report: Hemoglobin A1c % 5.7 <6.0 % [...] average glucose, using the formula of the [id number]-Ognzgjs Average Glucose study (ADAG), Diabetes Care, Vol.31,#8, Dec. 2007 Hold Green Gel Reviewed date:02/05/2024 12:30:39 PM Interpretation: Performing Lab:[facility], [address] [place] [phone] Notes/Report: Hold Green Gel See Note Specimen held untested for 24 hours; Call to request Chemistry testing. PSA,Total (Free>4and<10) Reviewed date:02/05/2024 12:34:07 PM Interpretation: Performing Lab:[facility], [address] [place] [phone] Notes/Report: PSA,Total (Free>4and<10) 2.57 0.00-4.00 ng/mL A [...] 4.0 and 10.0 ng/mL. PSA methodology: Oropeza GetQuiknity i Chemiluminescent Microparticle Immunoassay (CMIA) PSA,Total (Free>4and<10) (No t yet reviewed by provider) Interpretation:repeat in 3 Month July Performing Lab:[facility], [address] [place] [phone] Notes/Report: PSA,Total (Free>4and<10) 3.00 0.00-4.00 ng/mL A [...] ff Reviewed date:05/03/2024 12:57:27 PM Interpretation: Performing Lab:[facility], [address] [place] [phone] Notes/Report: White Blood Count 7.3 4.8-10.8 X10*3/uL [...] NRBC Abs Auto 0.000 0.0-0.012 X10*3/uL Comprehensive [place]. Panel Fa st Reviewed date:05/03/2024 03:21:31 PM Interpretation: Performing Lab:[facility], [address] [place] [phone] Notes/Report: Sodium 143 135-145 mmol/L Potassium 3.8 [...] Panel Reviewed date:05/03/2024 03:21:39 PM Interpretation: Performing Lab:[address] [phone] Notes/Report: Triglycerides 101 <150 mg/dL Desirable Triglyceride: [...] Random Reviewed date:05/03/2024 03:18:50 PM Interpretation: Performing Lab:[facility], [address] [place] [phone] Notes/Report: Creatinine Urine 328.64 Microalbumin Urine 18.0 Microalbum/Creatinine Ratio Ur 5.4 <30 ug/mg cr Albumin/Creatinine Ratio Reference Ranges: Normal: < 30 ug/mg creatinine Microalbuminuria: 30 - 300 ug/mg creatinine Clinical Albuminuria: > 300 ug/mg creatinine Hemoglobin A1c Reviewed date:05/03/2024 03:21:14 PM Interpretation: Performing Lab:[address] [phone] Notes/Report: Hemoglobin A1c % 5.9 <6.0 % [...] average glucose, using the formula of the [id number]-[id number] Average Glucose study (ADAG), Diabetes Care, Vol.31,#8, Dec. 2007 UA ClnCatch+Micro w/rflx Cul t Reviewed date:05/03/2024 03:21:54 PM Interpretation: Performing Lab:[facility], [address] [place] [phone] Notes/Report: Urine, Clean Catch Color Urine Dark Yellow Appearance Urine Clear PH 6.5 5.0-9.0 Glucose Urine UA Negative Negative mg/dL Urine Blood Negative Negative Specific Benge - Urine 1.025 1.005-1.025 Urine Protein Trace Neg-Trace mg/dL Urine Ketones Trace Negative mg/dL Nitrite Urine Negative Negative Leukocyte Esterase Urine Trace Negative RBC Urine 0-2 0-2 /HPF WBC Urine 0-5 0-5 /HPF Squamous Epithelial Cell Urine 0-2 0-2 /HPF Bacteria Urine None Seen None Seen Hyaline Casts Urine 3-5 0-2 /LPF Occult Blood, Stool, Guaiac Reviewed date:05/10/2024 03:07:57 PM Interpretation:Negative Performing Lab: Notes/Report: Negative Occult Blood, Stool, Guaiac Neg REASON FOR REFERRAL Reason sebaceous cyst loca [...] Notes Earline Ricks 02:32:20 PM EDT > [phone] 6v Rambo Annette 12/19/2023 02:47:34 PM EDT > patient is aware of Tri gil Patti A 02/03/2024 01:23:34 PM EDT > notes recd from visit Referral Priority Routine Referral Appointment Date 12/20/2023 Reason esophageal obstructi on needs upper endoscopy done ins referral needed Diagnosis 1 Esophageal obstructi on (K22.2) Referral Organization Sher Fuentes MD Referring Provider First Name Sher Referring Provider Last Name Gina Referring Provider Speciality Internal M edicine Referred Provider Georges Alfredo Referred Provider Specialty Gastroentero logy General Notes Earline Ricks 11:34:31 AM EST > info faxed , Earline Ricks 05/17/2024 01:48:45 PM EST > was told by office patient is on a cancel list for [place] Referral Priority Routine MEDICATIONS Medication SIG (Take, [...] a day for 30 day(s) 10/31/2014 Not-Taking IMMUNIZATIONS Vaccine Route Administration Date Status Comme [...] Notes Problem Tubular adenoma (D36.9) Active confirmed 279143087 Problem Esophageal obstructi on (K22.2) Active confirmed 899243641 Problem Kidney stone (N20.0) Active confirmed 9 0958344 Problem Gastroesophageal ref lux disease without esophagitis (K21.9) Active confirmed 991386056 Problem Essential hypertensi on (I10) Active confirmed 83359910 Problem Prediabetes (R73.09) Active confirmed 9 977685 Problem Pure hypercholesterolemia (E78.00) Active confirmed 439435329 VITAL SIGNS Blood pressure diastolic 70 mm Hg 05/10/2024 Height 74 in 05/10/2024 Blood pressure systolic 132 mm Hg 05/10/2024 Weight 216 lbs 05/10/2024 BMI 27.73 kg/m2 05/10/2024 Encounters Encounter Location Date Provider Diagnosis Sher Fuentes MD [address] [place] [id number] 05/10/2024 Sher Fuentes Esophageal obstructi on K22.2 ; Annual physical exam Z00.00 ; Rising PSA level R97.20 ; Prediabetes R73.09 ; Pure hypercholesterolemia E78.00 ; Essential hypertension I10 ; Colon cancer screening Z12.11 and Depression screening Z13.31 Sher Fuentes MD [address] [place] [id number] 08/04/2023 Sher Fuentes Rising PSA level R97 .20 Sher Fuentes MD [address] [place] [id number] 11/04/2023 Sher Fuentes Prediabetes R73.09 a nd Pure hypercholesterolemia E78.00 Sher Fuentes MD [address] [place] [id number] 05/03/2024 Sher Fuentes Blood tests for rout ine general physical examination Z00.00 ; Encounter for immunization Z23 ; Prediabetes R73.09 ; Pure hypercholesterolemia E78.00 and Essential hypertension I10 Sher Fuentes MD [address] [place] [id number] 02/03/2024 Sher Fuentes Rising PSA level R97 .20 Sher Fuentes MD [address] [place] [id number] 11/11/2023 Sher Fuentes Gastroesophageal ref lux disease without esophagitis K21.9 ; Prediabetes R73.09 ; Pure hypercholesterolemia E78.00 and Essential hypertension I10 Sher Fuentes MD [address] [place] [id number] 12/19/2023 Sher Fuentes Sebaceous cyst L72.3 and Local infection of the skin and subcutaneous tissue, unspecified L08.9 ASSESSMENTS Encounter Date Diagnosis Assessment Notes Treatment Notes Treatment Clinical Notes 05/10/2024 Annual physical exam (ICD-10 - Z00.00) labs reviewed and discussed with patient 05/10/2024 Esophageal obstructi on (ICD-10 - K22.2) referral to dr alfredo 08/04/2023 Rising PSA level (IC D-10 - [...] 12/19/2023 Sebaceous cyst (ICD- 10 - L72.3) 05/10/2024 Rising PSA level (IC D-10 - R97.20) will continue to monitor 05/03/2024 Prediabetes (ICD-10 - R73.09) 11/11/2023 Pure hypercholestero lemia (ICD-10 - E78.00) good ldl, will continue cuirrent regiment 05/10/2024 Prediabetes (ICD-10 - R73.09) encourarage exercise and weight loss, no need for medication at this time 05/03/2024 Pure hypercholestero lemia (ICD-10 - E78.00) 11/11/2023 Essential hypertensi on (ICD-10 - I10) well controlled, will continue current regiment 05/10/2024 Pure hypercholestero lemia (ICD-10 - E78.00) doing well on meds, will contnue curent regiment 05/03/2024 Essential hypertensi on (ICD-10 - I10) 05/10/2024 Essential hypertensi on (ICD-10 - I10) stable, will continue current regiment 05/10/2024 Colon cancer screeni ng (ICD-10 - Z12.11) guaiac negative 05/10/2024 Depression screening (ICD-10 - Z13.31) negative screening PLAN OF TREATMENT Pending Test Test Name Order Date Electrocardiogram (EKG) 10/06/2012 Electrocardiogram (EKG) 11/06/2015 Electrocardiogram (EKG) 11/19/2016 CT ABD & PELVIS NO CONTRAST 01/26/2018 PSA,Total (Free>4and<10) 05/03/2024 FL barium swallow 05/05/2023 Future Test Test Name Order Date PSA,Total (Free>4and<10) 11/08/2024 Next Appt Details Provider Name:Sher lawrence, 08/07/2024 07:30:00 AM, [address] [place] [address], [address], [place], [place], [phone], Provider Name:Sher lawrence, 11/08/2024 07:00:00 AM, [address] [place] [address], [address], [place], [place], [phone], Provider Name:Sher zarater, 11/16/2024 09:00:00 AM, [address], [address], [place], [place], [phone], Provider Name:Sher Carvalho ier, 05/09/2025 07:30:00 AM, [address], [address], [place], [place], [phone], Provider Name:Sher Carvalho ier, 05/16/2025 08:30:00 AM, [address], [address], [place], [place], [phone], Insurance Providers Payer Name Payer Address Payer Phone Subscriber Number Group Number Insured Name Patient Relationship to Insured Coverage Start Date Coverage End Date [facility] [address] [place], [place] [phone] [id number] Braxton Carrillo Self - patient is the insured MEDICAL (GENERAL) HISTORY Medical History History ICD Code Refuses flu shot07-10-12 Colonoscopy -04/07/[address] Alfredo (had colon polyp) - 5 year repeattubular adenoma: Colonoscopy 10/16/21 tubular adenoma repeat 5 years
[2024-06-20 15:16] VITALS: BMI 27.3
--- NOTE | 2024-06-21 09:33 | P.CONAN_ITS ---
Documented by User: Chery Koo NP 06/21/24 09:33 HPI - Anesthesia Eval Consult details Narrative: 58yo M for Upper Endoscopy and Colon[facility] Active Problems Active Problems: All Active Problems Epidermal inclusion cyst (Acute) Abscess (Acute) Past Medical History Medical History Dysphagia HTN (hypertension) Elevated blood sugar Elevated cholesterol Family History Family history of problems with anesthesia: No Surgical History Surgical History History of esophagogastroduodenoscopy (EGD) Hx of colonoscopy History of Problems with Anesthesia: No Social History Social History Are you a primary urgent care physician assistant to a significant other at home: No Do you presently have visiting nurse or other home services: No Patient Tobacco Use Status: Former Tobacco user Tobacco use type: Cigarette Years Smoked: 12 Meds Allergies Allergy/AdvReac Type Severity Reaction Status Date / Time No Known Allergies Allergy Verified 06/22/24 12:26 Home Medications ?Medication ?Instructions ?Recorded ?Confirmed ?Last Taken ?Type atorvastatin 80 mg tablet 80 mg PO DAILY 10/12/21 06/22/24 Unknown History valsartan 160 1 tab PO DAILY 06/20/24 06/22/24 06/22/24 History mg-hydrochlorothiazide 12.5 mg tablet Exam Height,Weight and Vital Signs: Height 6 ft 1.5 in Weight 95.254 kg Assessment and Plan Assessment Anesthesia Assessment: Chart Reviewed Final Anesthetic Review Family History of Problems with Anesthesia: No History of Problems with Anesthesia: No Documented by User: Armida Freed MD 06/22/24 13:27 [facility] Past Medical History Medical History Dysphagia HTN (hypertension) Elevated blood sugar Elevated cholesterol Surgical History Surgical History History of esophagogastroduodenoscopy (EGD) Hx of colonoscopy Social History Social History Are you a primary urgent care physician assistant to a significant other at home: No Do you presently have visiting nurse or other home services: No Patient Tobacco Use Status: Former Tobacco user Tobacco use type: Cigarette Years Smoked: 12 Meds Allergies Allergy/AdvReac Type Severity Reaction Status Date / Time No Known Allergies Allergy Verified 06/22/24 12:26 Home Medications ?Medication ?Instructions ?Recorded ?Confirmed ?Last Taken ?Type atorvastatin 80 mg tablet 80 mg PO DAILY 10/12/21 06/22/24 Unknown History valsartan 160 1 tab PO DAILY 06/20/24 06/22/24 06/22/24 History mg-hydrochlorothiazide 12.5 mg tablet Exam Airway Mallampati Class: III TM Dist: >3cm Neck ROM: Full Loose/Missing/Broken Teeth: No Heart: RRR Lungs: CTA Assessment and Plan Assessment Anesthesia Assessment: Anesthesia Plan Discussed Final Anesthetic Review NPO: Yes ASA Class: II Final Preanesthetic Review: Meds/Allgs Chart Reviewed, Consent Obtained/Reviewed and Anes Risks/Benef Reviewed Patient Risk: Low Procedure Risk: Intermediate Anesthetic Plan Anesthetic Plan: MAC: Disposition: Standard PACU
[2024-06-22 12:32] VITALS: BP 117/76; PULSE 96; RESP 16; TEMP 36.2; O2SAT 97; BMI 26.8
[2024-06-22] MEDS: Lactated Ringers 1,000 ML 100 ML IVCONT (12:44)
--- NOTE | 2024-06-22 13:25 | MHC.SHP ---
Pre-Procedural Eval Section A - 24 Hr Update-Section A only Date of Service: 06/22/24 The patient is an INPATIENT: No Changes since office visit: No Cold of Flu in the past 2 weeks, No New Medical Problems, No Changes in Medication and No Patient answered all questions The patient has been examined within 24 hours of the surgical procedure. The History & Physical has been completed within 30 days and I have reviewed it.: Yes Section B - Complete if H&P > 30 days Chief Complaint: screening,dysphagia,abnormal findings Allergies: Allergies Allergy/AdvReac Type Severity Reaction Status Date / Time No Known Allergies Allergy Verified 06/22/24 12:26 Plan I have reviewed the history and physical and performed a pertinent physical examination on my patient. No changes have occurred unless specified. Time Spent With Patient Time: Total time managing care of this patient today ____ minutes.
--- OUTSIDE RECORDS SUMMARY | 2024-06-22 13:49 | XMS_ITS ---
Author Organization Sher Fuentes MD Address [address] [place] [phone] Care Team Providers Care Business Development Manager Name Role Phone Sher Fuentes Primary Care Provider Allergies No Known Allergies Results Component Value Reference Range Notes Occult Blood, Stool, Guaiac Reviewed date:05/10/2024 03:07:57 PM Interpretation:Negative Performing Lab: Notes/Report: Negative Occult Blood, Stool, Guaiac Neg Reason For Referral Reason esophageal obstructi on needs upper endoscopy [...] cancel list for [place] Referral Priority Routine Referral Appointment Date 06/06/2024 REASON FOR VISIT ANNUAL EXAM Medications Medication SIG (Take, Route, Frequency, Duration) Notes [...] a day for 30 day(s) 10/31/2014 Not-Taking Social History Tobacco Use: Social History Observation Description Date Details (start date - stop date) Former Smoker NA - NA Tobacco Use/Smoking Question Answer Notes Patient is [...] Never (0 point) Points 1 Interpretation Negative Problems Problem Type SNOMED Code ICD Code Onset Dates Problem Status W/U Status Risk Notes Problem [id number] Esophageal obstruction (K22.2) Active confirmed Vital Signs Blood pressure systolic 132 mm Hg 05/10/20 24 Blood pressure diastolic 70 mm Hg 024 Height 74 in 05/10/2024 Weight 216 lbs 05/10/2024 BMI 27.73 kg/m2 05/10/2024 Encounters Encounter Location Date Provider Diagnosis Sher Fuentes MD [facility] [address] [place] [phone] 05/10/2024 Sher Fuentes Esophageal obstructi on K22.2 ; Annual physical exam Z00.00 ; Rising PSA level R97.20 ; Prediabetes R73.09 ; Pure hypercholesterolemia E78.00 ; Essential hypertension I10 ; Colon cancer screening Z12.11 and Depression screening Z13.31 Assessments Encounter Date Diagnosis (ICD Code) Assessment Notes Treatment Notes Treatment Clinical Notes Section Notes 05/10/2024 Esophageal obstructi on (ICD-10 - K22.2) referral to dr alfredo 05/10/2024 Annual physical exam (ICD-10 - Z00.00) labs reviewed and discussed with patient 05/10/2024 Rising PSA level (ICD-10 - R97.20) will continue to monitor 05/10/2024 Prediabetes (ICD-10 - R73.09) encourarage exercise and weight loss, no need for medication at this time 05/10/2024 Pure hypercholesterolemia (ICD-10 - E78.00) doing well on meds, will contnue curent regiment 05/10/2024 Essential hypertensi on (ICD-10 - I10) stable, will continue current regiment 05/10/2024 Colon cancer screeni ng (ICD-10 - Z12.11) guaiac negative 05/10/2024 Depression screening (ICD-10 - Z13.31) negative screening Plan Of Treatment Medication Medication Name Sig Start Date Stop [...] PSA,Total (Free>4and<10) 11/08/2024 Referrals Referral Date Details 05/10/2024 05/10/2024, esophage al obstruction needs upper endoscopy done ins referral needed , Georges Alfredo Next Appt Details Follow Up: 6 Months, Reason: prediabetes Provider Name:Sher lawrence, 08/07/2024 07:30:00 AM, [address] [place] [address], [address] [place] [address], [phone], Provider Name:Sher lawrence, 11/08/2024 07:00:00 AM, [address] [place] [address], [place] [address], [place], [place], [phone], Provider Name:Sher lawrence, 11/16/2024 09:00:00 AM, [address] [place] [address], [place] [address], [place], [place], [phone], Provider Name:Sher lawrence, 05/09/2025 07:30:00 AM, [address], [address], [place], [phone], Provider Name:Sher Carvalho howard, 05/16/2025 08:30:00 AM, [address], [address], [place], [phone], Progress Notes * BABSBraxton RODRIGUEZ SDOB:[birth year] (58 yo M)Acc No.[id number]:05/10/2024 Progress Notes Patient:?Braxton Cortes Provider:?Sher Fuentes MD :1965???Age:58 Y???Sex:Male Evangelista e:05/10/2024 [id number] Subjective: * Chief Complaints: * ???ANNUAL EXAM * HPI: ???Depression Screening:?PHQ-9?Little interest or pleasure in doing things?Not at all,?Feeling down, depressed, or hopeless?Not at all,?Trouble falling or staying asleep, or sleeping too much?Not at all,?Feeling tired or having little energy?Not at all,?Poor appetite or overeating?Not at all,?Feeling bad about yourself or that you are a failure, or have let yourself or your family down?Not at all,?Trouble concentrating on things, such as reading the newspaper or watching television?Not at all,?Moving or speaking so slowly that other people could have noticed; or the opposite, being so fidgety or restless that you have been moving around a lot more than usual?Not at all,?Thoughts that you would be better off or of hurting yourself in some way?Not at all,?Total Score?0.?Interpretation and Intervention?Depression Screening Findings?Negative,?Follow-Up for Depression?: review of PHQ-9 found negative result, no follow-up needed.? patient is a 58 yo male here for annual visit with review of recent labs and follow up of chronic issues, here for yearly evaluation/ still getting food stuck in throat. ???Communication Needs:?Communication Needs?Does the patient have a hearing impairment?Yes,?If yes, what is the hearing impairment??Hard of hearing, Hearing Aids,?Does the patient have a vision impairment??Yes,?If yes, what is the vision impairment??Glasses,?Does the patient have a cognition impairment??No.?SDOH Questions:?SDOH Questions?In the past year have you been worried about losing housing??No,?In the past year have you or any family members you live with been unable to get any of the following when it was really needed? Check all that apply:?None.? * ROS:?General/Constitutional:?Change in appetite?denies.?Chills?denies.?Fever?denies.?Ophthalmologic:?Blurred vision?denies.?Discharge?denies.?Pain?denies.?ENT:?Decreased hearing?denies.?Sore throat?denies.?Swollen glands?denies.?Endocrine:?Cold intolerance?denies.?Excessive thirst?denies.?Heat intolerance?denies.?Weight loss?denies.?Respiratory:?Cough?denies.?Shortness of breath at rest?denies.?Shortness of breath with exertion?denies.?Wheezing?denies.?Cardiovascular:?Chest pain at rest?denies.?Chest pain with exertion?denies.?Irregular heartbeat?denies.?Shortness of breath?denies.?Gastrointestinal:?Abdominal pain?denies.?Change in bowel habits?denies.?Diarrhea?denies.?Nausea?denies.?Rectal bleeding?denies.?Vomiting?denies .?Genitourinary:?Blood in urine?denies.?Difficulty urinating?denies.?Frequent urination?denies.?Musculoskeletal:?Painful joints?denies.?Weakness?denies.?Skin:?Dry skin?denies.?Itching?denies.?Denies?Mole(s),? changes in moles, new moles or any lesions of concern.?Denies?Photosensitivity.?Rash?denies.?Neurologic:?Dizziness?denies.?Fainting?denies.?Headache?denies.? * Medical History:? * Surgical History:? * Hospitalization/Major Diagno stic Procedure:? * Family History:?Father: dece ased 60 yrs, heart attack.?Mother: 60 yrs, breast cancer.?1 son(s) , 2 daughter(s) . .? Denies mental health/substance abuse family history, Denies mental health/substance abuse family history. * Social History:?Tobacco Use:?Tobacco Use/Smoking?Patient is a?former smoker,?How long has it been since you last smoked??> 10 years,?Additional Findings: Tobacco Non-User?Former smoker, currently using no form of tobacco.?Drugs/Alcohol:?Alcohol Screen?Did you have a drink containing alcohol in the past year??Yes,?How often did you have a drink containing alcohol in the past year??Monthly or less (1 point),?How many drinks did you have on a typical day when you were drinking in the past year??1 or 2 drinks (0 point),?How often did you have 6 or more drinks on one occasion in the past year??Never (0 point),?Points?1,?Interpretation?Negative.?Miscellaneous:?Caffeine: yes, frequency 3 cups per day of coffee, 6 glasses of pepsi. Children: yes. Community involvements: yes. no Exercise. Housing: owning. Living with: family. Marital status: . 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 Pets: cats, dog. no Travel outside of the [place]. * Medications:?TakingAtorvasta tin Calcium 80 MG Tablet TAKE ONE TABLET BY MOUTH EVERY DAY Valsartan-hydroCHLOROthiazide 160-12.5 MG Tablet TAKE ONE TABLET BY MOUTH EVERY DAY Taking Atorvastatin Calcium 80 MG Tablet TAKE ONE TABLET BY MOUTH EVERY DAY Taking Valsartan-hydroCHLOROthiazide 160-12.5 MG Tablet TAKE ONE TABLET BY MOUTH EVERY DAY Not-Taking/PRNFlexeril 5 MG Tablet 1 tablet Orally two times a dayPaxlovid 20 x 150 MG & 10 x 100MG Tablet Therapy Pack as directed Orally 2 tabs nirm and one tab ritonIbuprofen 800 MG Tablet 1 tablet Orally Three times a dayMedication List reviewed and reconciled with the patientNot-Taking/PRN Flexeril 5 MG Tablet 1 tablet Orally two times a dayNot-Taking/PRN Paxlovid 20 x 150 MG & 10 x 100MG Tablet Therapy Pack as directed Orally 2 tabs nirm and one tab ritonNot-Taking/PRN Ibuprofen 800 MG Tablet 1 tablet Orally Three times a dayMedication List reviewed and reconciled with the patient * Allergies:?N.K.D.A.yes[Aller gies Verified] Objective: * Vitals:?Ht: 74, Wt:216, BMI: 27.73, BP:132/70. * ???Past Orders: ???Lab:Hemoglobin A1c (Order Date - 05/03/2024) (Collection Date - 05/03/2024) ? Value Reference Range ?Hemoglobin A1c % 5.9 <6. 0 - % ?Estimated Average Glucose 123 - mg/dL ???Lab:UA ClnCatch+Micro w/r flx Cult (Order Date - 05/03/2024) (Collection Date - 05/03/2024) ? Value Reference Range ?Color Urine Dark Yellow - ?Appearance Urine Clear - ?PH 6.5 5.0-9.0 - ?Glucose Urine UA Negative Neg ative - mg/dL ?Urine Blood Negative Negative - ?Specific [place] - Urine 1.025 1.005-1.025 - ?Urine Protein Trace Neg-Tr sasha - mg/dL ?Urine Ketones Trace Negati ve - mg/dL ?Nitrite Urine Negative Negati ve - ?Leukocyte Esterase Urine Trace A Negative - ?RBC Urine 0-2 0-2 - /HPF ?WBC Urine 0-5 0-5 - /HPF ?Squamous Epithelial Cell Urine 0-2 0-2 - /HPF ?Bacteria Urine None Seen None Seen - ?Hyaline Casts Urine 3-5 0-2 - /LPF ???Lab:Complete Blood Count Auto Diff (Order Date - 05/03/2024) (Collection Date - 05/03/2024) ? Value Reference Range ?White Blood Count 7.3 4. 8-10.8 - X10*3/uL ?Red Blood Count 5.51 4.60 -5.80 - X10*6/uL ?Hemoglobin 16.5 14.0-18.0 - g/dl ?Hematocrit 49.0 42.0-52.0 - % ?Mean Corpuscular Volume 88.9 80.0-98.0 - fL ?Mean Corpuscular Hemoglobin 29.9 27.0-33.0 - pg ?Mean Corpuscular HGB Conc 33.7 31.0-36.0 - g/dl ?Red Cell Distribution Width 12.4 11.0-16.0 - % ?Platelet Count 250 160-4 00 - X10*3/uL ?Mean Platelet Volume 9.8 9.4-12.4 - fL ?Neutrophils Percent Auto 61.6 45-73 - % ?Imm Gran Pct Auto 0.4 0. 0-0.4 - % ?Lymphocytes Percent Auto 20.8 20-40 - % ?Monocytes Percent Auto 12.2 H 2-11 - % ?Eosinophils Percent Auto 3.9 0-4 - % ?Basophils Percent Auto 1.1 0-2 - % ?NRBC Pct Auto 0.0 0.0-0. 2 - /100WBC ?Neutrophils Absolute Auto 4.5 2.0-8.3 - x10*3/uL ?Imm Gran Abs Auto 0.03 0. 00-0.03 - X10*3/uL ?Lymphocytes Absolute Auto 1.5 1.2-4.9 - X10*3/uL ?Monocytes Absolute Auto 0.9 0.1-1.2 - X10*3/uL ?Eosinophils Absolute Auto 0.3 0.0-0.4 - X10*3/uL ?Basophils Absolute Auto 0.1 0.0-0.2 - X10*3/uL ?NRBC Abs Auto 0.000 0.0-0. 012 - X10*3/uL ???Lab:Comprehensive [place]. P krystian Fast (Order Date - 05/03/2024) (Collection Date - 05/03/2024) ? Value Reference Range ?Sodium 143 135-145 - mmo l/L ?Bilirubin Total 0.8 0.0- 1.0 - mg/dL ?Aspartate Amino Transferase 41 H 5-37 - U/L ?Alanine Aminotransferase 79 H 0-40 - U/L ?Total Protein 7.1 6.5-8. 0 - g/dL ?Albumin Level 4.3 3.5-5. 0 - g/dL ?Alkaline Phosphatase 67 39-117 - U/L ?Potassium 3.8 3.3-5.1 - mmol/L ?Chloride 108 96-108 - mm ol/L ?Carbon Dioxide 28 22-29 - mmol/L ?Anion Gap 11 L 12-20 - ?Blood Urea Nitrogen 19 H 9-16 - mg/dL ?Creatinine 1.33 0.5-1.4 - mg/dL ?Estimated Glomerular Filt Rate 55 - ?Glucose Fasting 114 H 60-9 9 - mg/dL ?Calcium 9.6 8.4-10.2 - m g/dL ???Lab:Lipid Panel (Order Da te - 05/03/2024) (Collection Date - 05/03/2024) ? Value Reference Range ?Triglycerides 101 <150 - mg/dL ?Cholesterol 163 <200 - m g/dL ?LDL Cholesterol Calculated 104 H <100 - mg/dL ?HDL Cholesterol 39 L >40 - mg/dL ???Lab:Microalbumin, Random (Order Date - 05/03/2024) (Collection Date - 05/03/2024) ? Value Reference Range ?Creatinine Urine 328.64 - m g/dL ?Microalbumin Urine 18.0 - mg/L ?Microalbum Creatinin e Ratio Ur 5.4 <30 - ug/mg cr * Examination: ???General Examination: ?GENERAL APPEARANCE:?well developed, well nourished, in no acute distress.?HEAD:?normocephalic, atraumatic.?EYES:?pupils equal, round, reactive to light and accommodation, sclera non-icteric.?EARS:?normal.?ORAL CAVITY:?mucosa moist.?THROAT:?clear.?NECK/THYROID:?neck supple, full range of motion, no cervical lymphadenopathy, no bruits.?SKIN:?warm and dry, no suspicious lesions , abnormal with a one inch subcutaneous lesion rt axilla consistent with sebaceous cyst.?HEART:?regular rate and rhythm, S1, S2 normal, no murmurs.?LUNGS:?clear to auscultation bilaterally.?ABDOMEN:?soft, nontender, nondistended, bowel sounds present, normal, no organomegaly , no masses palpable.?RECTAL EXAM:?normal tone, no external hemorrhoids, no masses palpable, prostate normal, stool guaiac negative.?MALE GENITOURINARY:?no penile lesions or discharge , no testicular mass , testes descended bilaterally.?EXTREMITIES:?no clubbing, cyanosis, or edema.?NEUROLOGIC:?nonfocal, motor strength normal upper and lower extremities, sensory exam intact.? Assessment: * Assessment: 1.?Annual physical exam - Z0 0.00 (Primary)?2.?Esophageal obstruction - K22.2?3.?Rising PSA level - R97.20?4.?Prediabetes - R73.09?5.?Pure hypercholesterolemia - E78.00?6.?Essential hypertension - I10?7.?Colon cancer screening - Z12.11 8.?Depression screening - Z13.31? Plan: * Treatment: 2.?Esophageal obstruction?LAB: PSA,Total (Free>4and<10) (Ordered for 11/08/2024) Notes: referral to dr alfredo? Referral To:Georges Alfredo??Gastroenterology ?Reason:esophageal obstruction needs upper endoscopy done ins referral needed 3.?Rising PSA level? Notes: will continue to monitor?? 4.?Prediabetes? Notes: encourarage exercise and weight loss, no need for medication at this time?? 5.?Pure hypercholesterolemia ? Continue Atorvastatin Calcium Tablet, 80 MG, TAKE ONE TABLET BY MOUTH EVERY DAY.?? Notes: doing well on meds, will contnue curent regiment?? 6.?Essential hypertension? Continue Valsartan-hydroCHLOROthiazide Tablet, 160-12.5 MG, TAKE ONE TABLET BY MOUTH EVERY DAY.?? Notes: stable, will continue current regiment?? 7.?Colon cancer screening?LAB: Occult Blood, Stool, Guaiac?Negative ? Value Reference Range ?Occult Blood, Stool, Guaiac Neg Notes: guaiac negative??8.?Depression screening? Notes: negative screening?? * Procedure Codes:?94797 TEST FOR BLOOD, FECES * Preventive Medicine:? ??Counseling:?Care goal follow-up plan:?Counseling for abnormal BMI provided?Yes,?Above Normal BMI Follow-up?Giving encouragement to exercise.? * Follow Up:?6 Months (Reason: prediabetes) * * Sign off status: Completed true * Provider:?Sher Fuentes MD Date:?1 07/11/2023 Generated for So perkins/Sherif/Staciesmitting on:?06/22/2024 01:49 PM EST History and Physical Notes * HPI (History of Present Illness) Category Sub-Category Detail Notes Category Not es Depression Screening PHQ-9 Little inte rest or pleasure in doing things: Not at all patient is a 58 yo male here for annual visit with review of recent labs and follow up of chronic issues, here for yearly evaluation/ still getting food stuck in throat. Feeling down, depressed, or hopeless: No t [...] patient have a cognition impair ment?: No Examination Category Sub-Category Detail Notes Category Not es General Examination GENERAL APPEARANCE: well dev eloped, [...] stool guaiac negative ORAL CAVITY: mucosa moist Consultation Request Notes Referral Date Referring Provider Referred Provider Not jose manuel 05/10/2024 Sher Fuentes Bernard esopha geal obstruction needs upper endoscopy done ins referral needed
--- OUTSIDE RECORDS SUMMARY | 2024-06-22 13:50 | XMS_ITS ---
Author Organization [facility] Address [address] [place] [address] Care Team Providers Care Screw Machine Adjuster Automatic Name Role Phone Sher Fuentes MD Primary [...] Problem Dysphagia, unspecified type (R13.10) Active confirmed [id number] Problem Abnormal upper gastrointestinal barium series (R93.3) Active confirmed [id number] VITAL SIGNS BMI 27.33 kg/m2 06/06/2024 Blood pressure systolic 000 mm Hg 06/06/19 25 Blood pressure diastolic 00 mm Hg 025 Height 73.5 in 06/06/2024 Temperature 96.8 degrees Fahrenheit 06/06/19 25 Weight 210 lbs 06/06/2024 Encounters Encounter Location Date Provider Diagnosis [facility] [address] [place] [address] 06/06/2024 Georges Aguirre Jr Colon cancer screening [...] Follow Up: prn, 1 Year, Reas on: Progress Notes * Examination Category Sub-Category Detail Notes General Examination GENERAL APPEARANCE: in no ac ambler distress HEAD: normocephalic EYES: sclera non-icteric NECK/THYROID: no lymphadenopathy HEART: S1, S2 normal, no mu rmurs CHEST: normal shape and exp ansion LUNGS: clear to auscultatio n bilaterally ABDOMEN: soft, nontender, non distended, bowel sounds present, no organomegaly SKIN: anicteric EXTREMITIES: no clubbing, cyanosi s, or edema PSYCH: cognitive function i ntact ORAL CAVITY: mucosa moist
--- OUTSIDE RECORDS SUMMARY | 2024-06-22 13:50 | XMS_ITS ---
Author Organization Sher Fuentes MD Address [address] [place], [place] [phone] Care Team Providers Care Derrick Engineer Name Role Phone Sher Fuentes Primary Care Provider Results Component Value Reference Range Notes PSA,Total (Free>4and<10) (No t yet reviewed by provider) Interpretation:repeat in 3 Month July Performing Lab:[facility], [address] [place] [phone] Notes/Report: PSA,Total (Free>4and<10) 3.00 0.00-4.00 ng/mL A [...] ff Reviewed date:05/03/2024 12:57:27 PM Interpretation: Performing Lab:[facility], [address] [place] [phone] Notes/Report: White Blood Count 7.3 4.8-10.8 X10*3/uL [...] NRBC Abs Auto 0.000 0.0-0.012 X10*3/uL Comprehensive [place]. Panel Fa st Reviewed date:05/03/2024 03:21:31 PM Interpretation: Performing Lab:[facility], [address] [place] [phone] Notes/Report: Sodium 143 135-145 mmol/L Potassium 3.8 [...] Panel Reviewed date:05/03/2024 03:21:39 PM Interpretation: Performing Lab:[address] [phone] Notes/Report: Triglycerides 101 <150 mg/dL Desirable Triglyceride: [...] Random Reviewed date:05/03/2024 03:18:50 PM Interpretation: Performing Lab:[address] [phone] Notes/Report: Creatinine Urine 328.64 Microalbumin Urine 18.0 Microalbum/Creatinine Ratio Ur 5.4 <30 ug/mg cr Albumin/Creatinine Ratio Reference Ranges: Normal: < 30 ug/mg creatinine Microalbuminuria: 30 - 300 ug/mg creatinine Clinical Albuminuria: > 300 ug/mg creatinine Hemoglobin A1c Reviewed date:05/03/2024 03:21:14 PM Interpretation: Performing Lab:[facility], [address] [place] [phone] Notes/Report: Hemoglobin A1c % 5.9 <6.0 % [...] average glucose, using the formula of the U3O-Hiunsbz Average Glucose study (ADAG), Diabetes Care, Vol.31,#8, Dec. 2007 UA ClnCatch+Micro w/rflx Cul t Reviewed date:05/03/2024 03:21:54 PM Interpretation: Performing Lab:[facility], [address] [place] [phone] Notes/Report: Urine, Clean Catch Color Urine Dark Yellow Appearance Urine Clear PH 6.5 5.0-9.0 Glucose Urine UA Negative Negative mg/dL Urine Blood Negative Negative Specific [place] - Urine 1.025 1.005-1.025 Urine Protein Trace Neg-Trace mg/dL Urine Ketones Trace Negative mg/dL Nitrite Urine Negative Negative Leukocyte Esterase Urine Trace Negative RBC Urine 0-2 0-2 /HPF WBC Urine 0-5 0-5 /HPF Squamous Epithelial Cell Urine 0-2 0-2 /HPF Bacteria Urine None Seen None Seen Hyaline Casts Urine 3-5 0-2 /LPF REASON FOR VISIT FASTING LABS Immunizations Vaccine Route Administration Date Status Comme nts Fluarix Quadrivalent - 150 IM Intramuscular 05/03/2024 Adm inistered Encounters Encounter Location Date Provider Diagnosis Sher Fuentes MD [address] [place] [address] Drive [address] [place], [place] [phone] 05/03/2024 Sher Fuentes Blood tests for rout ine general physical examination Z00.00 ; Encounter for immunization Z23 ; Prediabetes R73.09 ; Pure hypercholesterolemia E78.00 and Essential hypertension I10 Assessments Encounter Date Diagnosis (ICD Code) Assessment Notes Treatment Notes Treatment Clinical Notes Section Notes 05/03/2024 Blood tests for rout ine general physical examination (ICD-10 - Z00.00) 05/03/2024 Encounter for immunization (ICD-10 - Z23) 05/03/2024 Prediabetes (ICD-10 - R73.09) 05/03/2024 Pure hypercholesterolemia (ICD-10 - E78.00) 05/03/2024 Essential hypertensi on (ICD-10 - I10) Plan Of Treatment Pending Test Test Name Order Date PSA,Total (Free>4and<10) 05/03/2024 Next Appt Details Provider Name:Sher Carvalho ier, 08/07/2024 07:30:00 AM, [address] [place] [address], Suite [facility], [place], [place], [phone], Provider Name:Sher Carvalho ier, 11/08/2024 07:00:00 AM, [address] [place] [address], Suite [facility], [place], [place], [phone], Provider Name:Sher Carvalho ier, 11/16/2024 09:00:00 AM, [address] [place] [address], Suite [facility], [place], [place], [phone], Provider Name:Sher Carvalho ier, 05/09/2025 07:30:00 AM, [address] [place] [address], [place] [address], [place], [place], [phone], Provider Name:Sher Carvalho ier, 05/16/2025 08:30:00 AM, [address] [place] [address], Suite [facility], [place], [place], [phone], Progress Notes * Braxton OTERO SDOB:[birth year] (58 yo M)Acc No.[id number]:05/03/2024 Progress Note Patient:?BABSSheaAPRILBraxton SALINAS Cait Provider:?Sher Fuentes MD :1965???Age:58 Y???Sex:Male Evangelista e:05/03/2024 Address:[address] [phone] Subjective: * Chief Complaints: * ???1. FASTING LABS. * Medical History:? Objective: * Vitals:? Assessment: * Assessment: 1.?Encounter for immunizatio n - Z23 (Primary)???2.?Blood tests for routine general physical examination - Z00.00???3.?Prediabetes - R73.09???4.?Pure hypercholesterolemia - E78.00???5.?Essential hypertension - I10??? Plan: * Treatment: 2.?Prediabetes?LAB: PSA,Total (Free>4and<10) (Collection Date & Time - 05/03/2024 07:00 AM) ?LAB: Complete Blood Count Auto Diff (Collection Date & Time - 05/03/2024 07:00 AM) ?LAB: Comprehensive [place]. Panel Fast (Collection Date & Time - 05/03/2024 07:00 AM) ?LAB: Lipid Panel (Collection Date & Time - 05/03/2024 07:00 AM) ?LAB: Microalbumin, Random (Collection Date & Time - 05/03/2024 07:00 AM) ?LAB: Hemoglobin A1c (Collection Date & Time - 05/03/2024 07:00 AM) ?LAB: UA ClnCatch+Micro w/rflx Cult (Collection Date & Time - 05/03/2024 07:00 AM) 3.?Pure hypercholesterolemia ?LAB: PSA,Total (Free>4and<10) (Collection Date & Time - 05/03/2024 07:00 AM) ?LAB: Complete Blood Count Auto Diff (Collection Date & Time - 05/03/2024 07:00 AM) ?LAB: Comprehensive [place]. Panel Fast (Collection Date & Time - 05/03/2024 07:00 AM) ?LAB: Lipid Panel (Collection Date & Time - 05/03/2024 07:00 AM) ?LAB: Microalbumin, Random (Collection Date & Time - 05/03/2024 07:00 AM) ?LAB: Hemoglobin A1c (Collection Date & Time - 05/03/2024 07:00 AM) ?LAB: UA ClnCatch+Micro w/rflx Cult (Collection Date & Time - 05/03/2024 07:00 AM) 4.?Essential hypertension?LAB: PSA,Total (Free>4and<10) (Collection Date & Time - 05/03/2024 07:00 AM) ?LAB: Complete Blood Count Auto Diff (Collection Date & Time - 05/03/2024 07:00 AM) ?LAB: Comprehensive [place]. Panel Fast (Collection Date & Time - 05/03/2024 07:00 AM) ?LAB: Lipid Panel (Collection Date & Time - 05/03/2024 07:00 AM) ?LAB: Microalbumin, Random (Collection Date & Time - 05/03/2024 07:00 AM) ?LAB: Hemoglobin A1c (Collection Date & Time - 05/03/2024 07:00 AM) ?LAB: UA ClnCatch+Micro w/rflx Cult (Collection Date & Time - 05/03/2024 07:00 AM) * Immunizations:? Fluarix Quadrivalent - 150 : 0.5 mL (Dose No:1) (Route: Intramuscular) given by Corie Crane , Office Staff on Left Deltoid * Procedure Codes:?35575 FLU V ACCINE NO PRESERV 3 & >, 18303 IMMUNIZATION ADMIN, 44229 VENIPUNCT, ROUTINE* * * The named appointment provid er may or may not be the originator of this progress note, and it is not deemed complete until electronically signed by the appointment provider. Sign off status: Pending * Provider:?Sher Fuentes MD Date:?1 07/04/2023 Generated for So perkins/Sherif/Edsonitting on:?06/22/2024 01:50 PM EST
--- OUTSIDE RECORDS SUMMARY | 2024-06-22 13:50 | XMS_ITS | Patient Health Record ---
Author Organization [facility] Address [address] [place] [address] Care Team Providers Care Oven Dumper Name Role Phone Sher Fuentes MD Primary Care Provider Georgse Lehman Jr Unavailable ALLERGIES No Known Allergies REASON FOR REFERRAL Referring Provider First Name Sher Referring Provider Last Name Gina Referring Provider Speciality Internal M edicine Referred Organization [facility] Referred Provider Georges Johnson Jr Referred Address [address],[place], [place],[address], Referred Provider Specialty Gastroentero logy General Notes [...] Problem Colon cancer screening (Z12.11) Active confirmed 671916554 Problem Encounter for other preprocedural examination (Z01.818) Active confirmed 230935618 Problem Abnormal upper gastrointestinal barium series (R93.3) Active confirmed 894789728 Problem Dysphagia, unspecified type (R13.10) Active confirmed 74856906 VITAL SIGNS Temperature 96.8 degrees Fahrenheit 06/06/2024 Blood pressure diastolic 00 mm Hg 06/06/2024 Height 73.5 in 06/06/2024 Blood pressure systolic 000 mm Hg 06/06/2024 Weight 210 lbs 06/06/2024 BMI 27.33 kg/m2 06/06/2024 Encounters Encounter Location Date Provider Diagnosis [facility] [place] Outpatient [address] [place], [place] [phone] 06/22/2024 Georges Johnson Jr [facility] [address] [place] [address] 06/06/2024 Georges Johnson Jr Colon cancer screening [...] 07/13/2021 UPPER GI ENDOSCOPY 06/06/2024 COLONOSCOPY 06/06/2024 Insurance Providers Payer Name Payer Address Payer Phone Subscriber Number Group Number Insured Name Patient Relationship to Insured Coverage Start Date Coverage End Date [facility] PROFESSIONAL CLAIMS [address] [place] [address] [id number] 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
--- OUTSIDE RECORDS SUMMARY | 2024-06-22 13:50 | XMS_ITS ---
Author Organization [facility] Address [address] [place] [address] Care Team Providers Care Ergonomic Specialist Name Role Phone Sher Fuentes MD Primary Care Provider Georges Lehman Jr REASON FOR VISIT abn barium swallow,dysphagia,screening Encounters Encounter Location Date Provider Diagnosis [facility] [place] [address] [place] [phone] 06/22/2024 Georges Aguirre Jr PLAN OF TREATMENT No Information
--- OUTSIDE RECORDS SUMMARY | 2024-06-22 13:51 | XMS_ITS ---
Author Organization Sher Fuentes MD Address [address] [place] [phone] Care Team Providers Care Vending Enterprises Supervisor Name Role Phone Sher Fuentes Primary Care Provider [phone] Results Component Value Reference Range Notes PSA,Total (Free>4and<10) Reviewed date:02/05/2024 12:34:07 PM Interpretation: Performing Lab:[facility], [address] [place] [phone] Notes/Report: PSA,Total (Free>4and<10) 2.57 0.00-4.00 ng/mL A [...] Sher Fuentes MD [address] [place] [phone] 02/03/2024 Sher Fuentes Rising PSA level R97.20 Assessments Encounter Date Diagnosis (ICD Code) Assessment Notes Treatment Notes Treatment Clinical Notes Section Notes 02/03/2024 Rising PSA level (ICD-10 - R97.20) Plan Of Treatment Next Appt Details Provider Name:Sher Carvalho ier, 08/07/2024 07:30:00 AM, [address], [address], [place], [place], [phone], Provider Name:Sher Carvalho elliotr, 11/08/2024 07:00:00 AM, [address] [facility] [address], [address], [place], [place], [phone], Provider Name:Sher Carvalho elliotr, 11/16/2024 09:00:00 AM, [address], [address], [place], [phone], Provider Name:Sher Carvalho elliotr, 05/09/2025 07:30:00 AM, [address] [place] [address], [address], [place], [phone], Provider Name:Sher Carvalho elliotr, 05/16/2025 08:30:00 AM, [address] [place] [address], Suite [facility], [place], [phone], Progress Notes * Braxton OTERO SDOB:[birth year] (58 yo M)Acc No.[id number]:02/03/2024 Progress Note Patient:Braxton NAVA Provider:?Sher Fuentes MD :1965???Age:58 Y???Sex:Male Evangelista e:02/03/2024 Address[phone] Subjective: * Chief Complaints: * ???1. 6 month PSA. * Medical History:? Objective: * Vitals:? Assessment: * Assessment: 1.?Rising PSA level - R97.20 (Primary)??? Plan: * Treatment: * Procedure Codes:?62190 VENIP UNCT, ROUTINE* * * The named appointment provid er may or may not be the originator of this progress note, and it is not deemed complete until electronically signed by the appointment provider. Sign off status: Pending * Provider:?Sher Fuentes MD Date:?0 02/03/2024 Generated for So perkins/Sherif/Edsonitting on:?06/22/2024 01:50 PM EST
[2024-06-22 14:17] VITALS: BP 112/69; PULSE 106; RESP 18; TEMP 36.6; O2SAT 97
[2024-06-22 14:32] VITALS: BP 114/73; PULSE 100; RESP 16; TEMP 36.6; O2SAT 98
--- NOTE | 2024-06-22 15:08 | OP_ITS ---
DATE OF SERVICE: 06/22/2024 SURGEON: Georges Aguirre MD INDICATIONS: Dysphagia, colon cancer screening, and abnormal upper GI series. PREOPERATIVE DIAGNOSIS: POSTOPERATIVE DIAGNOSIS: PROCEDURE PERFORMED: Upper endoscopy with biopsy, colonoscopy to the terminal ileum with biopsy and snare polypectomy. ESTIMATED BLOOD LOSS: COMPLICATIONS: ANESTHESIA: Monitored anesthesia care. ASSISTANTS: SPECIMENS: DESCRIPTION OF PROCEDURE: A history and physical was performed. The risks and benefits of the procedure were explained to the patient and informed consent was obtained. The patient was placed in a left lateral decubitus position. The Olympus video gastroscope was introduced into the esophagus, stomach, and duodenum. Examination was performed. He was repositioned for colonoscopy. A digital rectal exam was performed and was found to be normal. The Olympus pediatric video colonoscope was introduced into the rectum and advanced to the cecum. The cecum was identified by transillumination, palpation, and identification of ileocecal valve. Examination was performed and the scope was removed. He tolerated both procedures well and was returned to recovery area in stable condition. FINDINGS: Upper endoscopy, esophagus: There was some ridging in the body of the esophagus. Biopsies were obtained to evaluate for H pylori at 30 cm. The EG junction was irregular and there was esophagitis. This was biopsied. Stomach: The stomach showed no evidence of masses or ulcers. There was linear streaks of erythema in the antrum consistent with gastritis. Biopsies were obtained from the antrum. Several benign less than 10 mm polyps were identified in the fundus consistent with fundic colon polyp. Duodenum: The bulb and 2nd portion were normal. Colonoscopy: The terminal ileum was not examined. The visualized colonic mucosa was normal. Multiple polyps were present, which were removed using combination of biopsy forceps and cold snare polypectomy. All were less than 10 mm. Two were located in the right colon, 2 at 75 cm, and 2 in the rectum. Retroflexed examination showed internal hemorrhoids. The quality of the prep was good. There was moderate sigmoid diverticulosis. IMPRESSION: 1. Esophagitis. 2. Gastritis. 3. Colon polyps. RECOMMENDATION: Follow up the biopsy results. MD BIANCA Malik/SHENA / [phone]
== END 2024-06-22 14:54 | disposition home or self-care (01) ==
PROVIDERS: PCP Internal Medicine; Visit Provider Internal Medicine Gastroenterology
PROC: (CPT 45385; principal; 2024-06-22 13:20)
DX: Z12.11 Encounter for screening for malignant neoplasm of colon (principal); D12.2 Benign neoplasm of ascending colon; D12.8 Benign neoplasm of rectum; K63.5 Polyp of colon; K57.30 Diverticulosis of large intestine without perforation or abscess without bleeding; K64.8 Other hemorrhoids; R13.10 Dysphagia, unspecified; K31.7 Polyp of stomach and duodenum; K20.80 Other esophagitis without bleeding; K29.50 Unspecified chronic gastritis without bleeding; I10 Essential (primary) hypertension; E78.5 Hyperlipidemia, unspecified; R73.9 Hyperglycemia, unspecified; Z79.899 Other long term (current) drug therapy; Z87.891 Personal history of nicotine dependence
CPT/HCPCS: 45385; 45380; 43239; 88305; 88342; J2003; J2704

== ENCOUNTER 2024-08-07 10:22 | Outpatient (REF) | payer BC, SELFPAY ==
[2024-08-07 11:25] LABS: PSA,Total (Free>4and<10) 2.42 ng/mL (0.00-4.00)
--- OUTSIDE RECORDS SUMMARY | 2024-08-07 12:20 | XMS_ITS ---
Author Organization [facility] Address [address] [place] [address] [address] [place] [address] Care Team Providers Care Front Desk Specialist Name Role Phone Sher Fuentes MD Primary Care Provider Angeline Aguirre Jr, Georges Torres [phone] REASON FOR VISIT abn barium swallow,dysphagia,screening Problems Problem Type SNOMED Code ICD Code Onset Dates Problem Status W/U Status Risk Notes Problem Dysphagia (64909934) Dysphagia (R13.10) Active confirmed Encounters Encounter Location Date Provider Diagnosis [facility] Outpatient [address] [place] [phone] 06/22/2024 Georges Aguirre Jr Colon cancer screening Z12.11 ; Colon polyps K63.5 ; Dysphagia R13.10 and Abn findings-GI tract R93.3 Assessments Encounter Date Diagnosis (ICD Code) Assessment Notes Treatment Notes Treatment Clinical Notes Section Notes 06/22/2024 Colon cancer screening (ICD-10 - Z12.11) 06/22/2024 Colon polyps (ICD-10 - K63.5) 06/22/2024 Dysphagia (ICD-10 - R13.10) 06/22/2024 Abn findings-GI tract (ICD-10 - R93.3) Plan Of Treatment Next Appt Details Provider Name:Georges frazier Jr, 10/24/2024 10:00:00 AM, [address] [facility] [address], [address], [place], [address], Progress Notes * SWAPNIL OTERODOB: [birth year] (58 yo M)Acc No.[id number]:06/22/2024 EGD and COL/MAC Patient:?SWAPNIL OTERO Provider:?Georges Aguirre MD :1965???Age:58 Y???Sex:Male Evangelista e:06/22/2024 Address:[address] [place], [place] [phone] Pcp:Sher Fuentes MD Subjective: * Chief Complaints: * ???1. Abn barium swallow,dys phagia,screening. * Medical History:? Objective: * Vitals:? Assessment: * Assessment: 1.?Colon cancer screening - Z12.11 (Primary)???2.?Colon polyps - K63.5???3.?Dysphagia - R13.10???4.?Abn findings-GI tract - R93.3??? Plan: * Treatment: * Procedure Codes:?46242 LESIO N REMOVAL COLONOSCOPY, 31149 COLONOSCOPY AND BIOPSY, Modifiers: 58 , 0529F INTRVL 3+YRS PTS CLNSCP DOCD, Modifiers: 1P , 55415 UPPER GI ENDOSCOPY, BIOPSY * * The named appointment provid er may or may not be the originator of this progress note, and it is not deemed complete until electronically signed by the appointment provider. Sign off status: Pending * Provider:?Georges Aguirre MD Date:?0 06/22/2024 Generated for So perkins/Sherif/eTransmitting on:?08/07/2024 12:20 PM EDT
--- OUTSIDE RECORDS SUMMARY | 2024-08-07 12:20 | XMS_ITS ---
Author Organization Sher Fuentes MD Address [address] [place], [place] [phone] Care Team Providers Care Tornado Chaser Name Role Phone Sher Fuentes Primary Care [...] Problem Status W/U Status Risk Notes Problem [id number] Esophageal obstruction (K22.2) Active confirmed Vital Signs Blood pressure systolic 132 mm Hg 05/10/20 24 Blood pressure diastolic 70 mm Hg 024 Height 74 in 05/10/2024 Weight 216 lbs 05/10/2024 BMI 27.73 kg/m2 05/10/2024 Encounters Encounter Location Date Provider Diagnosis Sher Fuentes MD [address] [facility] [address] [place] [phone] 05/10/2024 Sher Fuentes Esophageal obstructi on K22.2 [...] screening guaiac negative Depression screening negative screening Referrals Referral Date Details 05/10/2024 05/10/2024, esophage al obstruction needs upper endoscopy done ins referral needed , Georges Alfredo Next Appt Details Follow Up: 6 Months, Reason: prediabetes Provider Name:Sher lawrence, 11/08/2024 07:00:00 AM, [address] [place] [address], [address], [phone], Provider Name:Sher lawrence, 11/16/2024 09:00:00 AM, [address] [place] [address], [address], [phone], Provider Name:Sher lawrence, 05/09/2025 07:30:00 AM, [address] [place] [address], [address], [phone], Provider Name:Sher lawrence, 05/16/2025 08:30:00 AM, [address] [place] [address], [address], [phone], Progress Notes * Braxton OTERO SDOB:[birth year] (58 yo M)Acc No.[id number]:05/10/2024 Progress Notes Patient:Braxton Delgado Provider:?Sher Fuentes MD :1965???Age:58 Y???Sex:Male Evangelista e:05/10/2024 Address: [address], [place], [place] Subjective: * Chief Complaints: * ???ANNUAL EXAM [...] cats, dog. no Travel outside of the [place]. * Medications:?TakingAtorvasta tin Calcium 80 MG [...] mg/dL ?Urine Blood Negative Negative - ?Specific [place] - Urine 1.025 1.005-1.025 - ?Urine Protein [...] Auto 0.000 0.0-0. 012 - X10*3/uL ???Lab:Comprehensive [place]. P krystian Fast (Order Date - 05/03/2024) [...] L >40 - mg/dL ???Lab:Microalbumin, Random (Order 05/03/2024) (Collection Date 05/03/2024) ? Value Reference Range ?Creatinine Urine [...] negative??8.?Depression screening? Notes: negative screening?? * Procedure Codes:?34862 TEST FOR BLOOD, FECES * Preventive Medicine:? ??Counseling:?Care goal follow-up plan:?Counseling for abnormal BMI provided?Yes,?Above Normal BMI Follow-up?Giving encouragement to exercise.? * Follow Up:?6 Months (Reason: prediabetes) * * Sign off status: Completed true * Provider:?Sher Fuentes MD Date:?1 07/11/2023 Generated for So perkins/Sherif/eTransmitting on:?08/07/2024 12:20 PM EDT History and Physical Notes * HPI (History [...] Total Score: 0 Interpretation and Intervention Depression Nachoe damaso Findings: Negative Follow-Up for Depression: : review [...]
--- OUTSIDE RECORDS SUMMARY | 2024-08-07 12:20 | XMS_ITS | Patient Health Record ---
Author Organization [facility] Address [address] [place] [address] Care Team Providers Care Agency Manager Name Role Phone Gina KLEIN, Sher Primary Care Provider Georges Lehman Jr [phone] Allergies No Known Allergies Results Component Value Reference Range Notes Pathology Reviewed date:06/28/2024 10:45:27 AM Interpretation: Performing Lab:[facility], [address] [place] [phone] Notes/Report: Name: Jillian Otero Age/Sex: 58/M : 1965 Unit#: [id number] Attend Dr: Georges Johnson MD Re06/22/24 Status : [facility] Location: [facility] Disch: SPEC : [id number] RECD: 06/22/24 STATUS: RABIA RIZZO NUM: [id number] JOVANY: 06/22/24-[address]: Georges Johnson MD ENTERED: 06/22/24-15 11 SP TYPE: Surgical OTHR DR: Sher Fuentes MD ORDERED: HE Stain/18 , Gross Micro L4/6, IHC, H. pylori, Eso bx BA w/exc Addendum Addendum 1 Entered: 06/27/24 Immunostain for H. p ylori on A is negative. Control stains appropriately. Addendum Signed ____ __(signature on file) Pamela Adolfo 06/27/241655 Diagnosis A. Gastric antrum, b iopsy: Gastric antral mucosa with mild reactive changes and minimal chronic inactive gas tritis; negative for intestinal metaplasia and dysplasia. B. Esophagogastric j unction, biopsy: Squamous mucosa with hyperplasia, spongiosis, intraepithelial neut rophils, and intraepithelial eosinophils (up to 17 per high-power field, and columnar mucosa with moderate chronic active inflammation, possible erosion, hyperplastic changes and focal intestinal metaplasia, consistent with esophagitis; negative for dysplas ia (see comment). C. Esophagus, at 30 cm, biopsy: Squamous mucosa with hyperplasia, spongiosis and intraepithelial eosi nophils (up to 28 per high-power field) consistent with esophagitis (see comment). D. Colon, right, matt yp: Tubular adenoma; negative for high-grade dysplasia and carcinoma. E. Colon, at 75 cm, polyps: Hyperplastic polyps, two. F. Colon, rectal matt yps: Tubular adenoma (2 pieces); negative for high-grade dysplasia and carcinoma, hyper plastic polyp (1 piece), and serrated polyp with focal features suggesting tradition al serrated adenoma (1 piece); negative for high-grade dysplasia and carcinoma. Comment: (A): Immunostain for H. pylori pending; addendum to follow. 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 Clinical and endoscopic correlation is advised. (B and C): These fin dings may be due to eosinophilic esophagitis or reflux esophagitis and clinical correla tion is necessary. CONTINUED ON NEXT PAGE Name: Jillian Otero Age/Sex: 58/M : 1965 Unit#: [id number] Attend Dr: Georges Johnson MD Re06/22/24 Status : [facility] Location: [facility] Disch: SPEC : [id number] RECD: 06/22/24 STATUS: RABIA RIZZO NUM: [id number] JOVANY: 06/22/24-[address] [facility] [address]: Georges Johnson MD ENTERED: 06/22/24-15 11 SP TYPE: Surgical OTHR DR: Sher Fuentes MD ORDERED: HE Stain/18 , Gross Micro L4/6, IHC, H. pylori, Eso bx BA w/exc Clinical History Pre-Op Dx: Dyspahgia, screening Post-Op Dx: Esophagi tis, gastritis, colon polyps Microscopic Description Microscopic sections reviewed. Material Received A. Antral bx's B. EG junction C. Esophagus at 30 cm D. Right colon polyp E. Polyps at 75 cm F. Rectal polyps Gross Description Received in 6 parts. A. Received in forma antonino labeled ?antral biopsies? are 2 fragments of caldwell-white soft tissue measuring 0.3 and 0. 3 cm in greatest dimension which are wrapped in lens paper and entirely submitted for micros copic examination, 2 pieces in cassette A. B. Received in forma antonino labeled ?EG junction? are 4 fragments of pink white soft tissue measuring 0.2-0.4 cm in greatest dimension which are wrapped in lens paper and entirely submitted for micros copic examination, 4 pieces in cassette B. C. Received in forma antonino labeled ?esophagus at 30 cm? are 2 fragments of translucent, white soft tissue measurin g 0.3 and 0.4 cm in greatest dimension which are wrapped in lens paper and entirely submitt ed for microscopic examination, 2 pieces in cassette C. D. Received in forma antonino labeled ?right colon polyps? are fragments of pink white and pink- caldwell soft tissue shlomo uring 0.1-0.3 cm in greatest dimension, forming an aggregate that measures 0.7 x 0.6 x 0.2 cm, which is wrapped in lens paper and entirely submitted for microscopic examinat ion, multiple pieces in cassette D. E. Received in forma antonino labeled ?polyps at 75 cm? are 2 fragments of caldwell-white soft tissue measuring 0.3 and 0. 3 cm in greatest dimension which are wrapped in lens paper and entirely submitted for micros copic examination, 2 pieces in cassette E. F. Received in forma antonino labeled ?rectal polyps? are fragments of pink white and pink caldwell CONTINUED ON NEXT PAGE Name: Jillian Otero Age/Sex: 58/M : 1965 Unit#: [id number] Attend Dr: Georges Johnson MD Re06/22/24 Status : [facility] Location: [facility] Disch: SPEC : [id number] RECD: 06/22/24 STATUS: RABIA RIZZO NUM: [id number] JOVANY: 06/22/24-[address]: Georges Johnson MD ENTERED: 06/22/24 11 SP TYPE: Surgical OTHR DR: Sher Fuentes MD ORDERED: HE Stain/18 , Gross Micro L4/6, IHC, H. pylori, Eso bx BA w/exc Gross Description (Continued) soft tissue ranging from 0.1-0.3 cm in greatest dimension, forming an aggregate measuring 0.6 x 0.5 x 0.1 cm w hich is wrapped in lens paper and entirely submitted for microscopic examination, multipl e pieces in cassette [facility]. [facility] Special studies orde red and performed: Immunostain for H. pylori on A1. Copies To: Sher Fuentes MD [facility] [address] [place] [address] Drive [address] [place] [address] Georges Johnson MD [facility] [address] [place] [address] [address] [place] [address] Signed (si gnature on file) Pamela Mata 06/25/24 1404 END OF REPORT Reason For Referral Referring Provider First Name Sher Referring Provider Last Name Gina Referring Provider Speciality Internal M edicine Referred Organization [facility] Referred Provider Georges Johnson Jr Referred Address [address] [place] [address],[place] [address],[place], [place],[address], Referred Provider Specialty Gastroentero logdebra General Notes Carol Magana 025 03:32:58 PM EST > REQUESTED AN [facility] BLUE REFERRAL DATED 06-01-[address] MANE' OFFICE FOR UPCOMING APPT WITH DR. JOHNSON Referral Priority Routine Medications Medication SIG (Take, Route, Frequency, Duration) Notes Start Date End Date Status Omeprazole 40 MG 1 capsule 1/2 to 1 h our before morning meal Orally Once a day for 30 day(s) 06/28/2024 Active Atorvastatin Calcium 80 MG 1 tablet Oral ly Once a day Active Valsartan-hydroCHLOROthiazi de 160-12.5 MG TAKE ONE TABLET BY MOUTH EVERY DAY Oral for 30 Active Immunizations Vaccine Route Administration Date Status Comme nts Influenza Unknown 05/16/2024 Administered Influenza Unknown 07/13/2021 Refused Social History Tobacco Use: Social History Observation Description Date Details (start date - stop date) Former Smoker NA - 07/06/2017 Tobacco Use/Smoking Question Answer Notes Patient is a former smoker When did you stop smoking? 07/06/2017 How long has it been since you last smoked? 1-5 years Problems Problem Type SNOMED Code ICD Code Onset Dates Problem Status W/U Status Risk Notes Problem 184905045 Colon cancer screening (Z12.11) Active confirmed Problem 219617463 Encounter for ot her preprocedural examination (Z01.818) Active confirmed Problem Dysphagia (51694184) Dysphagia (R13.10) Active confirmed Problem 375414682 Abnormal upper gastrointestinal barium series (R93.3) Active confirmed Problem 99244048 Dysphagia, unspecified type (R13.10) Active confirmed Vital Signs Temperature 96.8 degrees Fahrenheit 06/06/2024 Blood pressure diastolic 00 mm Hg 06/06/2024 Height 73.5 in 06/06/2024 Blood pressure systolic 000 mm Hg 06/06/2024 Weight 210 lbs 06/06/2024 BMI 27.33 kg/m2 06/06/2024 Encounters Encounter Location Date Provider Diagnosis [facility] [address] [place] [phone] 06/22/2024 Georges Johnson Jr Colon cancer screening Z12.11 ; Colon polyps K63.5 ; Dysphagia R13.10 and Abn findings-GI tract R93.3 [facility] [address] [place] [phone] 06/06/2024 Georges Johnson Jr Colon cancer screening Z12.11 ; Dysphagia, unspecified type R13.10 and Abnormal upper gastrointestinal barium series R93.3 [facility] [address] [place] [phone] 06/28/2024 Georges Johnson Jr Assessments Encounter Date Diagnosis (ICD Code) Assessment Notes Treatment Notes Treatment Clinical Notes Section Notes 06/22/2024 Colon cancer screening (ICD-10 - Z12.11) 06/22/2024 Colon polyps (ICD-10 - K63.5) 06/06/2024 Colon cancer screening (ICD-10 - Z12.11) We discussed his symptoms today. He should have further evaluation with upper endoscopy because of his history of obstruction. He did have one endoscopic procedure for this at another facility years ago. He may need further treatment with a proton pump inhibitor especially if there is evidence of eosinophilic esophagitis. He is also due for colonoscopy. We discussed risks and benefits of the procedure today. He understands these and agrees to proceed. Today's visit was 40 minutes. 06/06/2024 Dysphagia, unspecified type (ICD-10 - R13.10) Swallowing problems material was printed We discussed his symptoms today. He should have further evaluation with upper endoscopy because of his history of obstruction. He did have one endoscopic procedure for this at another facility years ago. He may need further treatment with a proton pump inhibitor especially if there is evidence of eosinophilic esophagitis. He is also due for colonoscopy. We discussed risks and benefits of the procedure today. He understands these and agrees to proceed. Today's visit was 40 minutes. 06/22/2024 Dysphagia (ICD-10 - R13.10) 06/06/2024 Abnormal upper gastrointestinal barium series (ICD-10 - R93.3) We discussed his symptoms today. He should have further evaluation with upper endoscopy because of his history of obstruction. He did have one endoscopic procedure for this at another facility years ago. He may need further treatment with a proton pump inhibitor especially if there is evidence of eosinophilic esophagitis. He is also due for colonoscopy. We discussed risks and benefits of the procedure today. He understands these and agrees to proceed. Today's visit was 40 minutes. 06/22/2024 Abn findings-GI tract (ICD-10 - R93.3) Plan Of Treatment Future Test Test Name Order Date COLONOSCOPY 02/18/2016 COLONOSCOPY 07/13/2021 UPPER GI ENDOSCOPY 06/06/2024 COLONOSCOPY 06/06/2024 Next Appt Details Provider Name:Georges frazier , 10/24/2024 10:00:00 AM, [address] [place] [address], [address], [place], [address], Insurance Providers Payer Name Payer Address Payer Phone Subscriber Number Group Number Insured Name Patient Relationship to Insured Coverage Start Date Coverage End Date [facility] [employer] [address] [place] [address] [id number] [id number] Self - patient is the insured Medical (General) History Medical History History ICD Code Hyperlipidemia Hyperglycemia Hypertension Surgical History Surgery Date(Month/Year)
--- OUTSIDE RECORDS SUMMARY | 2024-08-07 12:21 | XMS_ITS ---
Author Organization Sher Fuentes MD Address [address] [place], [place] [phone] Care Team Providers Care Teacher Of The Handicapped Name Role Phone Sher Fuentes Primary Care Provider [phone] Results Component Value Reference Range Notes Complete Blood Count Auto Di ff Reviewed date:05/03/2024 12:57:27 PM Interpretation: Performing Lab:[facility], [address] [place] [phone] Notes/Report: White Blood Count 7.3 4.8-10.8 X10*3/uL [...] NRBC Abs Auto 0.000 0.0-0.012 X10*3/uL Comprehensive Leslie. Panel Fa st Reviewed date:05/03/2024 03:21:31 PM Interpretation: Performing Lab:[facility], [address] [place] [phone] Notes/Report: Sodium 143 135-145 mmol/L Potassium 3.8 [...] Panel Reviewed date:05/03/2024 03:21:39 PM Interpretation: Performing Lab:[facility], [address] [place] [phone] Notes/Report: Triglycerides 101 <150 mg/dL Desirable Triglyceride: [...] low results in patients with liver disease. PSA,Total (Free>4and<10) Reviewed date:08/07/2024 07:28:36 AM Interpretation:repeat in 3 Month July Performing Lab:[address] [phone] Notes/Report: PSA,Total (Free>4and<10) 3.00 0.00-4.00 ng/mL A [...] Oropeza Alinity i Chemiluminescent Microparticle Immunoassay (CMIA) Microalbumin, Random Reviewed date:05/03/2024 03:18:50 PM Interpretation: Performing Lab:[address] [phone] Notes/Report: Creatinine Urine 328.64 Microalbumin Urine 18.0 Microalbum/Creatinine Ratio Ur 5.4 <30 ug/mg cr Albumin/Creatinine Ratio Reference Ranges: Normal: < 30 ug/mg creatinine Microalbuminuria: 30 - 300 ug/mg creatinine Clinical Albuminuria: > 300 ug/mg creatinine Hemoglobin A1c Reviewed date:05/03/2024 03:21:14 PM Interpretation: Performing Lab:[facility], [address] [place] [phone] Notes/Report: Hemoglobin A1c % 5.9 <6.0 % [...] average glucose, using the formula of the C4J-Fximgcx Average Glucose study (ADAG), Diabetes Care, Vol.31,#8, 2007 UA ClnCatch+Micro w/rflx Cul t Reviewed date:05/03/2024 03:21:54 PM Interpretation: Performing Lab:[facility], [address] [place] [phone] Notes/Report: Urine, Clean Catch Color Urine Dark Yellow Appearance Urine Clear PH 6.5 5.0-9.0 Glucose Urine UA Negative Negative mg/dL Urine Blood Negative Negative Specific [place] - Urine 1.025 1.005-1.025 Urine Protein Trace [...] Location Date Provider Diagnosis Sher Fuentes MD [address] [place] [address] Drive [address] [place], [place] [phone] 05/03/2024 Sher Fuentes Blood tests for rout [...] on (ICD-10 - I10) Plan Of Treatment Next Appt Details Provider Name:Sher zarater, 11/08/2024 07:00:00 AM, [address] [place] [address], [address], [place], [place], [phone], Provider Name:Sher Carvalho ier, 11/16/2024 09:00:00 AM, [address] [place] [address], [address], [place], [place], [phone], Provider Name:Sher Carvalho ier, 05/09/2025 07:30:00 AM, [address] [place] [address], Suite [facility], [place], [place], [phone], Provider Name:Sher zarater, 05/16/2025 08:30:00 AM, [address] [place] [address], Suite [facility], [place], [place], [phone], Progress Notes * Braxton OTERO SDOB:[birth year] (58 yo M)Acc No.[id number]:05/03/2024 Progress Note Patient:?BABSBraxton RODRIGUEZ Cait Provider:?Sher Fuentes MD :1965???Age:58 Y???Sex:Male Evangelista e:05/03/2024 Address[phone] Subjective: * Chief Complaints: * ???1. FASTING LABS. * Medical History:? Objective: * Vitals:? Assessment: * Assessment: 1.?Encounter for immunizatio n - Z23 (Primary)???2.?Blood tests for routine general physical examination - Z00.00???3.?Prediabetes - R73.09???4.?Pure hypercholesterolemia - E78.00???5.?Essential hypertension - I10??? Plan: * Treatment: 2.?Prediabetes?LAB: Complete Blood Count Auto Diff (Collection Date & Time - 05/03/2024 07:00 AM) ?LAB: Comprehensive Leslie. Panel Fast (Collection Date & Time - 05/03/2024 07:00 AM) ?LAB: Lipid Panel (Collection Date & Time - 05/03/2024 07:00 AM) ?LAB: PSA,Total (Free>4and<10) (Collection Date & Time - 05/03/2024 07:00 AM) ?LAB: Microalbumin, Random (Collection Date & Time - 05/03/2024 07:00 AM) ?LAB: Hemoglobin A1c (Collection Date & Time - 05/03/2024 07:00 AM) ?LAB: UA ClnCatch+Micro w/rflx Cult (Collection Date & Time - 05/03/2024 07:00 AM) 3.?Pure hypercholesterolemia ?LAB: Complete Blood Count Auto Diff (Collection Date & Time - 05/03/2024 07:00 AM) ?LAB: Comprehensive Leslie. Panel Fast (Collection Date & Time - 05/03/2024 07:00 AM) ?LAB: Lipid Panel (Collection Date & Time - 05/03/2024 07:00 AM) ?LAB: PSA,Total (Free>4and<10) (Collection Date & Time - 05/03/2024 07:00 AM) ?LAB: Microalbumin, Random (Collection Date & Time - 05/03/2024 07:00 AM) ?LAB: Hemoglobin A1c (Collection Date & Time - 05/03/2024 07:00 AM) ?LAB: UA ClnCatch+Micro w/rflx Cult (Collection Date & Time - 05/03/2024 07:00 AM) 4.?Essential hypertension?LAB: Complete Blood Count Auto Diff (Collection Date & Time - 05/03/2024 07:00 AM) ?LAB: Comprehensive Leslie. Panel Fast (Collection Date & Time - 05/03/2024 07:00 AM) ?LAB: Lipid Panel (Collection Date & Time - 05/03/2024 07:00 AM) ?LAB: PSA,Total (Free>4and<10) (Collection Date & Time [...] Office Staff on Left Deltoid * Procedure Codes:?35947 FLU V ACCINE NO PRESERV 3 & >, 14393 IMMUNIZATION ADMIN, 57695 VENIPUNCT, ROUTINE* * * The named appointment provid er may or may not be the originator of this progress note, and it is not deemed complete until electronically signed by the appointment provider. Sign off status: Pending * Provider:?Sher Fuentes MD Date:?1 07/04/2023 Generated for So perkins/Sherif/Edsonitting on:?08/07/2024 12:20 PM EDT
--- OUTSIDE RECORDS SUMMARY | 2024-08-07 12:21 | XMS_ITS ---
Author Organization Sher Fuentes MD Address [address] [place] [phone] Care Team Providers Care Digital Composer Name Role Phone Sher Fuentes Primary Care Provider Results Component Value Reference Range Notes PSA,Total (Free>4and<10) Reviewed date:08/07/2024 12:11:46 PM Interpretation: Performing Lab:[facility], [address] [place] [phone] Notes/Report: PSA,Total (Free>4and<10) 2.42 0.00-4.00 ng/mL A Free PSA was not [...] Chemiluminescent Microparticle Immunoassay (CMIA) REASON FOR VISIT 3 month repeat PSA Encounters Encounter Location Date Provider Diagnosis Sher Fuentes MD [address] [place] [phone] 08/07/2024 Sher Fuentes Esophageal obstruction K22.2 Assessments Encounter Date Diagnosis (ICD Code) Assessment Notes Treatment Notes Treatment Clinical Notes Section Notes 08/07/2024 Esophageal obstruction (ICD-10 - K22.2) Plan Of Treatment Next Appt Details Provider Name:Sher Carvalho ier, 11/08/2024 07:00:00 AM, [address], [address], [place], [phone], Provider Name:Sher Carvalho ier, 11/16/2024 09:00:00 AM, [address], [address], [place], [place], [phone], Provider Name:Sher Carvalho ier, 05/09/2025 07:30:00 AM, [address], [address], [place], [phone], Provider Name:Sher Carvalho ier, 05/16/2025 08:30:00 AM, [address], [address], [place], [place], [phone], Progress Notes * Braxton OTERO SDOB:[birth year] (58 yo M)Acc No.[id number]:08/07/2024 Progress Note Patient:?Braxton OTERO Cait Provider:?Sher Fuentes MD :1965???Age:58 Y???Sex:Male Evangelista e:08/07/2024 [facility] [phone] Subjective: * Chief Complaints: * ???1. 3 month repeat PSA. * Medical History:? Objective: * Vitals:? Assessment: * Assessment: 1.?Esophageal obstruction - K22.2 (Primary)??? Plan: * Treatment: * Procedure Codes:?76427 VENIP UNCT, ROUTINE* * * The named appointment provid er may or may not be the originator of this progress note, and it is not deemed complete until electronically signed by the appointment provider. Sign off status: Pending * Provider:?Sher Fuentes MD Date:?0 08/07/2024 Generated for Kendricki gregorio/Sherif/eTransmitting on:?08/07/2024 12:21 PM EDT
--- OUTSIDE RECORDS SUMMARY | 2024-08-07 12:21 | XMS_ITS ---
Author Organization [facility] Address [address] [place] [address] Care Team Providers Care Terrazzo Layer Name Role Phone Sher Fuentes MD Primary Care Provider Georges Lehman Jr [phone] Allergies No Known Allergies REASON FOR VISIT Patient presents today for esophageal obstruction Medications Medication SIG (Take, Route, Frequency, Duration) Notes Start Date End Date Status Atorvastatin Calcium 80 MG 1 tablet Oral ly Once a day Active Valsartan-hydroCHLOROthiazi de 160-12.5 MG TAKE ONE TABLET BY MOUTH EVERY DAY Oral for 30 Active Social History Tobacco Use: Social History Observation Description Date Details (start date - stop date) Former Smoker NA - 07/06/2017 Tobacco Use/Smoking Question Answer Notes Patient is a former smoker When did you stop smoking? 07/06/2017 How long has it been since you last smoked? 1-5 years Problems Problem Type SNOMED Code ICD Code Onset Dates Problem Status W/U Status Risk Notes Problem 59243838 Dysphagia, unspecified type (R13.10) Active confirmed Problem 722379114 Abnormal upper gastrointestinal barium series (R93.3) Active confirmed Vital Signs Temperature 96.8 degrees Fahrenheit 06/06/19 25 Blood pressure systolic 000 mm Hg 06/06/19 25 Blood pressure diastolic 00 mm Hg 025 Height 73.5 in 06/06/2024 Weight 210 lbs 06/06/2024 BMI 27.33 kg/m2 06/06/2024 Encounters Encounter Location Date Provider Diagnosis [facility] [address] [place] [address] 06/06/2024 Georges Aguirre Jr Colon cancer screening Z12.11 ; Dysphagia, unspecified type R13.10 and Abnormal upper gastrointestinal barium series R93.3 Assessments Encounter Date Diagnosis (ICD Code) Assessment Notes Treatment Notes Treatment Clinical Notes Section Notes 06/06/2024 Colon cancer screening (ICD-10 - Z12.11) [...] proceed. Today's visit was 40 minutes. 06/06/2024 Abnormal upper gastrointestinal barium series (ICD-10 [...] to proceed. Today's visit was 40 minutes. Plan Of Treatment Treatment Notes Assessment Notes Dysphagia, unspecified type Swallowing p roblems material was printed Future Test Test Name Order Date UPPER GI ENDOSCOPY 06/06/2024 COLONOSCOPY 06/06/2024 Next Appt Details Follow Up: prn, 1 Year, Reas on: Provider Name:Georges frazier Jr, 10/24/2024 10:00:00 AM, [address], [address], [place], [address], Progress Notes * SWAPNIL OTERODOB: [birth year] (58 yo M)Acc No.[id number]:06/06/2024 Progress Notes Patient:?SWAPNIL OTERO Provider:?Georges Aguirre MD :1965???Age:58 Y???Sex:Male Evangelista e:06/06/2024 Address:[address] [place], [place] [id number] Pcp:Sher Fuentes MD Subjective: * Chief Complaints: * ???1. Patient presents today for esophageal obstruction. * HPI: ???New symptom(s):? Swapnil is a pleasant 58-year-old man seen today in consultation. He has a history of dysphagia with food sticking. Symptoms have been present for years. This occurs in the lower back area just above the suprasternal arch. Symptoms are worse with bread and meat. Symptoms do not occur with liquids or soft foods like scrambled eggs or mashed potatoes. He does get some reflux symptoms, mainly at night but does not take anything for this on a regular basis. There has been no hematemesis or melena. He underwent evaluation with upper GI series in June 2023. This showed multiple findings by the PA who read the report. We discussed that most of these findings do not suggest significant pathology, based on my experience with this provider. We reviewed the films personally. ?He last underwent colonoscopy 3 years ago which showed multiple polyps and is due for followup. He has no rectal bleeding or change in his bowel habits. Weight and appetite have been stable. * ROS:?General/Constitutional:?Change in appetite?denies.?Fatigue?denies.?ENT:?Patient denies?difficulty swallowing.?Respiratory:?Patient denies?shortness of breath.?Cardiovascular:?Patient denies?chest pain.?Gastrointestinal:?Comments?See HPI for details.?Genitourinary:?Difficulty urinating?denies.?Incontinence?denies.?Musculoskeletal:?Patient denies?muscle aches.?Skin:?Patient denies?pruritis.?Neurologic:?Patient denies?low back pain.?Psychiatric:?Patient denies?mental or physical abuse.? * Medical History:?Hyperlipide barbra, Hyperglycemia, Hypertension. * Family History:?Father: unkn own.?Mother: unknown.? pt was adopted. * Social History:?Tobacco Use:?Tobacco Use/Smoking?Patient is a?former smoker,?When did you stop smoking??07/06/2017,?How long has it been since you last smoked??1-5 years.?Drugs/Alcohol:?Alcohol Screen?Points: 1, Interpretation: Negative.?Miscellaneous:?Marital status: . 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 * Medications:?Taking Atorvast atin Calcium 80 MG Tablet 1 tablet Orally Once a day, Taking Valsartan-hydroCHLOROthiazide 160-12.5 MG Tablet TAKE ONE TABLET BY MOUTH EVERY DAY Oral , Discontinued Colyte with Flavor Packs 240 GM Solution Reconstituted As directed Orally Over the specified time., Discontinued MiraLax (colon prep) 17 GM/SCOOP Powder mixed with Gatorade or Crystal Light Orally begin at 5:00 p.m. the day before the procedure, Medication List reviewed and reconciled with the patient * Allergies:?N.K.D.A. Objective: * Vitals:?Wt: 210 lbs, Ht: 73. 5 in, BMI:27.33 Index, BP: 000/00 mm Hg, Temp: 96.8. * Examination: ???General Examination: ?GENERAL APPEARANCE:?in no acute distress.?HEAD:?normocephalic.?EYES:?sclera non-icteric.?ORAL CAVITY:?mucosa moist.?NECK/THYROID:?no lymphadenopathy.?SKIN:?anicteric.?HEART:?S1, S2 normal, no murmurs.?LUNGS:?clear to auscultation bilaterally.?CHEST:?normal shape and expansion.?ABDOMEN:?soft, nontender, nondistended, bowel sounds present, no organomegaly .?EXTREMITIES:?no clubbing, cyanosis, or edema.?PSYCH:?cognitive function intact.? Assessment: * Assessment: 1.?Dysphagia, unspecified ty pe - R13.10 (Primary)?2.?Colon cancer screening - Z12.11?3.?Abnormal upper gastrointestinal barium series - R93.3? We discussed his symptoms to day. He should have further evaluation with upper [...] to proceed. Today's visit was 40 minutes. Plan: * Treatment: Notes: Swallowing problems material was printed??2.?Colon cancer screening?Procedure: COLONOSCOPY (Ordered for 06/06/2024)* sched for 06/22/24 at 1:10 pm macmiralax 3.?Abnormal upper gastrointestinal barium series?Procedure: UPPER GI ENDOSCOPY (Ordered for 06/06/2024)* sched for 06/22/24 at 1:10 pm mac * Procedure Codes:?3017F COLOR ECTAL CA SCREEN DOC REV, G9903 Pt scrn tbco id as non user, G9745 DOC RSN FOR NOT SCREEN/REC F/U HBP * Preventive Medicine:? ??Counseling:?Care goal follow-up plan:?Above Normal BMI Follow-up?Giving encouragement to exercise,?BMI management provided?Yes.? * Follow Up:?prn, 1 Year * * Sign off status: Completed true * Provider:?Georges Aguirre MD Date:?0 06/06/2024 Generated for So perkins/Sherif/Edsonitting on:?08/07/2024 12:20 PM EDT History and Physical Notes * HPI (History of Present Illness) Category Sub-Category Detail Notes Category Not es New symptom(s) Swapnil is a pleasant 58-year-old man seen today in consultation. He has a history of dysphagia with food sticking. Symptoms have been present for years. This occurs in the lower back area just above the suprasternal arch. Symptoms are worse with bread and meat. Symptoms do not occur with liquids or soft foods like scrambled eggs or mashed potatoes. He does get some reflux symptoms, mainly at night but does not take anything for this on a regular basis. There has been no hematemesis or melena. He underwent evaluation with upper GI series in June 2023. This showed multiple findings by the PA who read the report. We discussed that most of these findings do not suggest significant pathology, based on my experience with this provider. We reviewed the films personally. He last underwent colonoscopy 3 years ago which showed multiple polyps and is due for followup. He has no rectal bleeding or change in his bowel habits. Weight and appetite have been stable. Examination Category Sub-Category Detail Notes Category Not es General Examination GENERAL APPEARANCE: in no acute di stress HEAD: normocephalic EYES: sclera non-icteric NECK/THYROID: no lymphadenopathy HEART: S1, S2 normal, no mu rmurs CHEST: normal shape and exp ansion LUNGS: clear to auscultatio n bilaterally ABDOMEN: soft, nontender, non distended, bowel sounds present, no organomegaly SKIN: anicteric EXTREMITIES: no clubbing, cyanosi s, or edema PSYCH: cognitive function i ntact ORAL CAVITY: mucosa moist
--- OUTSIDE RECORDS SUMMARY | 2024-08-07 12:21 | XMS_ITS ---
Author Organization [facility] Address [address] [place] [address] [place] [id number] Care Team Providers Care Town Planner Name Role Phone Sher Fuentes MD Primary Care Provider Angeline Aguirre Jr, Georges Torres REASON FOR VISIT pathology Medications Medication SIG (Take, Route, Fr equency, Duration) Notes Start Date End Date Status Omeprazole 40 MG 1 capsule 1/2 to 1 h our before morning meal Orally Once a day for 30 day(s) 06/28/2024 Active Encounters Encounter Location Date Provider Diagnosis [facility] [place] [address] 06/28/2024 Georges Aguirre Jr Plan Of Treatment Medication Medication Name Sig Start Date Stop Date Notes Omeprazole 40 MG 1 capsule 1/2 to 1 h our before morning meal Orally Once a day for 30 day(s) 06/28/2024 Next Appt Details Provider Name:Georges frazier Jr, 10/24/2024 10:00:00 AM, [address] [place] [address], [address], [place], [address], Progress Notes * SWAPNIL OTERODOB: [birth year] (58 yo M)Acc No.[id number]:06/28/2024 Patient:?SWAPNIL OTERO :1965???Age:58 Y???Sex:Male Address:[address] [place] [address], [address] * Refills? Start Omeprazole Capsule Delayed Release, 40 MG, Orally, 30, 1 capsule 1/2 to 1 hour before morning meal, Once a day, 30 day(s), Refills=6 * true * Date:? Generated for So perkins/Sherif/Edsonitting on:?08/07/2024 12:21 PM EDT
--- OUTSIDE RECORDS SUMMARY | 2024-08-07 12:21 | XMS_ITS | Patient Health Record ---
Author Organization Sher Fuentes MD Address [address] [place], [place] [id number] Care Team Providers Care [employer] Name Role Phone Sher Fuentes Primary Care Provider Allergies No Known Allergies Results Component Value Reference Range Notes Liver Panel Reviewed date:11/04/2023 03:43:50 PM Interpretation: Performing Lab:[facility], [address] [place] [phone] Notes/Report: Bilirubin Total 0.7 0.0-1.0 mg/dL Bilirubin Direct 0.2 0.0-0.5 mg/dL Aspartate Amino Transferase 24 5-37 U/L Alanine Aminotransferase 46 0-40 U/L Total Protein 6.7 6.5-8.0 g/dL Albumin Level 4.1 3.5-5.0 g/dL Alkaline Phosphatase 64 39-117 U/L Glucose Fasting Reviewed date:11/04/2023 03:42:50 PM Interpretation: Performing Lab:[facility], [address] [place] [phone] Notes/Report: Glucose Fasting 111 60-99 mg/dL A fasting glucose from 100-125 mg/dl is considered impaired (pre-diabetes). Lipid Panel with Reflex Reviewed date:11/04/2023 03:43:21 PM Interpretation: Performing Lab:[facility], [address] [place] [phone] Notes/Report: Triglycerides 91 <150 mg/dL Desirable Triglyceride: [...] Reviewed date:11/04/2023 03:42:59 PM Interpretation: Performing Lab:[facility], [address] [place] [phone] Notes/Report: Hemoglobin A1c % 5.7 <6.0 % [...] average glucose, using the formula of the G3B-Gjoznhd Average Glucose study (ADAG), Diabetes Care, Vol.31,#8, Dec. 2007 PSA,Total (Free>4and<10) Reviewed date:02/05/2024 12:34:07 PM Interpretation: Performing Lab:[facility], [address] [place] [phone] Notes/Report: PSA,Total (Free>4and<10) 2.57 0.00-4.00 ng/mL A [...] ff Reviewed date:05/03/2024 12:57:27 PM Interpretation: Performing Lab:[address] [phone] Notes/Report: White Blood Count 7.3 4.8-10.8 X10*3/uL [...] 0.0-0.2 /100WBC Neutrophils Absolute Auto 4.5 2.0-8.3 x10*3/uL Imm Gran Abs Auto 0.03 0.00-0.03 X10*3/uL Lymphocytes Absolute Auto 1.5 1.2-4.9 X10*3/uL Monocytes Absolute Auto 0.9 0.1-1.2 X10*3/uL Eosinophils Absolute Auto 0.3 0.0-0.4 X10*3/uL Basophils Absolute Auto 0.1 0.0-0.2 X10*3/uL NRBC Abs Auto 0.000 0.0-0.012 X10*3/uL Comprehensive [place]. Panel Fa st Reviewed date:05/03/2024 03:21:31 PM Interpretation: Performing Lab:[facility], [address] [place] [phone] Notes/Report: Sodium 143 135-145 mmol/L Potassium 3.8 [...] Panel Reviewed date:05/03/2024 03:21:39 PM Interpretation: Performing Lab:[facility], [address] [place] [phone] Notes/Report: Triglycerides 101 <150 mg/dL Desirable Triglyceride: [...] AM Interpretation:repeat in 3 Month July Performing Lab:[address] [phone] Notes/Report: PSA,Total (Free>4and<10) 3.00 0.00-4.00 ng/mL A [...] Random Reviewed date:05/03/2024 03:18:50 PM Interpretation: Performing Lab:[address] [phone] Notes/Report: Creatinine Urine 328.64 Microalbumin Urine 18.0 Microalbum/Creatinine Ratio Ur 5.4 <30 ug/mg cr Albumin/Creatinine Ratio Reference Ranges: Normal: < 30 ug/mg creatinine Microalbuminuria: 30 - 300 ug/mg creatinine Clinical Albuminuria: > 300 ug/mg creatinine Hemoglobin A1c Reviewed date:05/03/2024 03:21:14 PM Interpretation: Performing Lab:[address] [phone] Notes/Report: Hemoglobin A1c % 5.9 <6.0 % [...] average glucose, using the formula of the J5L-Kggpzhn Average Glucose study (ADAG), Diabetes Care, Vol.31,#8, Dec. 2007 UA ClnCatch+Micro w/rflx Cul t Reviewed date:05/03/2024 03:21:54 PM Interpretation: Performing Lab:[address] [phone] Notes/Report: Urine, Clean Catch Color Urine Dark Yellow Appearance Urine Clear PH 6.5 5.0-9.0 Glucose Urine UA Negative Negative mg/dL Urine Blood Negative Negative Specific [place] - Urine 1.025 1.005-1.025 Urine Protein Trace Neg-Trace mg/dL Urine Ketones Trace Negative mg/dL Nitrite Urine Negative Negative Leukocyte Esterase Urine Trace Negative RBC Urine 0-2 0-2 /HPF WBC Urine 0-5 0-5 /HPF Squamous Epithelial Cell Urine 0-2 0-2 /HPF Bacteria Urine None Seen None Seen Hyaline Casts Urine 3-5 0-2 /LPF PSA,Total (Free>4and<10) Reviewed date:08/07/2024 12:11:46 PM Interpretation: Performing Lab:[address] [phone] Notes/Report: PSA,Total (Free>4and<10) 2.42 0.00-4.00 ng/mL A [...] Oropeza Alinity i Chemiluminescent Microparticle Immunoassay (CMIA) Occult Blood, Stool, Guaiac Reviewed date:05/10/2024 03:07:57 PM Interpretation:Negative Performing Lab: Notes/Report: Negative Occult Blood, Stool, Guaiac Neg Hold Gold Reviewed date:11/04/2023 03:43:28 PM Interpretation: Performing Lab:[facility], [address] [place] [phone] Notes/Report: Hold Gold See Note Specimen held untested for 24 hours; Call to request Chemistry testing. Hold Green Gel Reviewed date:02/05/2024 12:30:39 PM Interpretation: Performing Lab:[facility], [address] [place] [phone] Notes/Report: Hold Green Gel See Note Specimen held untested for 24 hours; Call to request Chemistry testing. Pathology Reviewed date:06/28/2024 12:19:36 PM Interpretation: Performing Lab:[facility], [address] [place] [address], [place] [address] Notes/Report: ---- Name: AntonyalexiskiritmallyJillian Age/Sex: 58/M : 1965 Unit#: [id number] Attend Dr: Georges Alfredo MD Re06/22/24 Status : [facility] Location: [facility] Disch: ---- SPEC : [id number] RECD: 06/22/24 STATUS: RABIA RIZZO NUM: [id number] JOVANY: 06/22/24-135[facility] DR: Georges Alfredo MD ENTERED: 06/22/24- 11 SP TYPE: Surgical OTHR DR: Sher Fuentes MD ORDERED: HE Stain/18 , Gross Micro L4/6, IHC, H. pylori, Eso bx BA w/exc Addendum Addendum 1 Entered: 06/27/24 Immunostain for H. pylori on A is negative. Control stains appropriately. Addendum Signed (signature on file) Pamela Mata 06/27/241655 ---- Diagnosis A. Gastric antrum, biopsy: Gastric antral mucosa with mild reactive changes and minimal chronic inactive gastritis; negative for intestinal metaplasia and dysplasia. B. Esophagogastric junction, biopsy: Squamous mucosa with hyperplasia, spongiosis, intraepithelial neutrophils, and intraepithelial eosinophils (up to 17 per high-power field, and columnar mucosa with moderate chronic active inflammation, possible erosion, hyperplastic changes and focal intestinal metaplasia, consistent with esophagitis; negative for dysplas ia (see comment). C. Esophagus, at 30 cm, biopsy: Squamous mucosa with hyperplasia, spongiosis and intraepithelial eosinophils (up to 28 per high-power field) consistent with esophagitis (see comment). D. Colon, right, matt yp: Tubular adenoma; negative for high-grade dysplasia and carcinoma. E. Colon, at 75 cm, polyps: Hyperplastic polyps, two. F. Colon, rectal matt yps: Tubular adenoma (2 pieces); negative for high-grade dysplasia and carcinoma, hyperplastic polyp (1 piece), and serrated polyp with focal features suggesting tradition al serrated adenoma (1 piece); negative for high-grade dysplasia and carcinoma. Comment: (A): Immunostain for H. pylori pending; addendum to follow. 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 Clinical and endoscopic correlation is advised. (B and C): These findings may be due to eosinophilic esophagitis or reflux esophagitis and clinical correla tion is necessary. CONTINUED ON NEXT PAGE ---- Name: Fitzgibbons,Jillian hn Age/Sex: 58/M [facility] 1965 [id number] Unit#: [id number] Attend Dr: Georges Alfredo MD Re06/22/24 Status : [facility] Location: [facility] Disch: ---- SPEC : [id number] RECD: 06/22/24 STATUS: ASTRIDAkil SO NUM: [id number] JOVANY: 06/22/24-1351 [facility] DR: Georges Alfredo MD ENTERED: 06/22/24- 11 SP TYPE: Surgical OTHR DR: Sher Fuentes MD ORDERED: HE Stain/18 , Gross Micro L4/6, IHC, H. pylori, Eso bx BA w/exc Clinical History Pre-Op Dx: Dyspahgia , screening Post-Op Dx: Esophagi tis, gastritis, colon [...] paper and entirely submitted for microscopic examination, 2 pieces in cassette A. B. Received in forma antonino labeled ?EG junction? are 4 fragments of pink white soft tissue measuring 0.2-0.4 cm in greatest dimension which are wrapped in lens paper and entirely submitted for microscopic examination, 4 pieces in cassette B. C. [...] pink white and pink- caldwell soft tissue measuring 0.1-0.3 cm in greatest dimension, forming an aggregate that measures 0.7 x 0.6 x 0.2 cm, which is wrapped in lens paper and entirely submitted for microscopic examinat ion, multiple pieces in cassette D. E. Received in forma Behavio labeled ?polyps at 75 cm? are 2 fragments of caldwell-white soft tissue measuring 0.3 and 0. 3 cm in greatest dimension which are wrapped in lens paper and entirely submitted for microscopic examination, 2 pieces in cassette E. F. Received in forma Behavio labeled ?rectal polyps? are fragments of pink white and pink caldwell CONTINUED ON NEXT PAGE ---- Name: Jillian Cortes Age/Sex: 58/M : 1965 Unit#: [id number] Attend Dr: Georges Alfredo MD Re06/22/24 Status : [facility] Location: [facility] Disch: ---- SPEC : [id number] RECD: 06/22/24 STATUS: RABIA RIZZO NUM: [id number] JOVANY: 06/22/24-[address]: Georges Alfredo MD ENTERED: 06/22/24-15 11 SP TYPE: Surgical OTHR DR: Sher Fuentes MD ORDERED: HE Stain/18 , Gross Micro L4/6, IHC, H. pylori, Eso bx BA w/exc Gross Description (Continued) soft tissue ranging from 0.1-0.3 cm in greatest dimension, forming an aggregate measuring 0.6 x 0.5 x 0.1 cm w brittany is wrapped in lens paper and entirely submitted for microscopic examination, multipl e pieces in cassette [facility] Special studies orde red and performed: Immunostain for H. pylori on A1. Copies To: Sher Fuentes MD [facility] [address] [place], [place] [phone] Georges Alfredo MD [facility] [address] [place] [address] ---- Signed (signature on file) Pamela Adolfo 06/25/24 1404 ---- END OF REPORT Reason For Referral Reason sebaceous cyst loca l infection of [...] Notes Earline Ricks 02:32:20 PM EDT > [phone] 6v , Earline Ricks 12/19/2023 02:47:34 PM EDT > patient is aware of appt Tri Patti A 02/03/2024 01:23:34 PM EDT > [...] Referral Priority Routine Referral Appointment Date 06/06/2024 Medications Medication SIG (Take, Route, Frequency, Duration) [...] a day for 30 day(s) 10/31/2014 Not-Taking Immunizations Vaccine Route Administration Date Status Comme [...] 04/27/2021 Refused Fluarix Quadrivalent Unknown 04/30/2022 Refused Social History Tobacco Use: Social History [...] Problem Status W/U Status Risk Notes Problem 346570362 Tubular adenoma (D36.9) Active confir med Problem 075339812 Esophageal obstr uction (K22.2) Active confirmed Problem 42758047 Kidney stone (N20.0) Active confirmed Problem 451695272 Gastroesophageal reflux disease without esophagitis (K21.9) Active confirmed Problem 16568815 Essential hypert ension (I10) Active confirmed Problem 1316383 Prediabetes (R73.09) Active confirmed Problem 824913648 Pure hypercholesterolemia (E78.00) Active confirmed Vital Signs Blood pressure diastolic 70 mm Hg 05/10/2024 Height 74 in 05/10/2024 Blood pressure systolic 132 mm Hg 05/10/2024 Weight 216 lbs 05/10/2024 BMI 27.73 kg/m2 05/10/2024 Encounters Encounter Location Date Provider Diagnosis Sher Fuentes MD [address] [place] [id number] 11/04/2023 Shre Fuentes Prediabetes R73.09 a nd Pure hypercholesterolemia E78.00 Sher Fuentes MD [address] [place] [address] Drive [address] [place] [id number] 02/03/2024 Sher Fuentes Rising PSA level R97 .20 Sher Fuentes MD [address] [place] [address] Drive [address] [place] [id number] 05/03/2024 Sher Fuentes Blood tests for rout ine general physical examination Z00.00 ; Encounter for immunization Z23 ; Prediabetes R73.09 ; Pure hypercholesterolemia E78.00 and Essential hypertension I10 Sher Fuentes MD [address] [place] [id number] 08/07/2024 Sher Fuentes Esophageal obstructi on K22.2 Sher Fuentes MD [address] [place] [id number] 11/11/2023 Sher Fuentes Gastroesophageal ref lux disease without esophagitis K21.9 ; Prediabetes R73.09 ; Pure hypercholesterolemia E78.00 and Essential hypertension I10 Sher Fuentes MD [address] [place] [id number] 12/19/2023 Sher Fuentes Sebaceous cyst L72.3 and Local infection of the skin and subcutaneous tissue, unspecified L08.9 Sher Fuentes MD [address] [place] [id number] 05/10/2024 Sher Fuentes Esophageal obstructi on K22.2 ; Annual physical exam Z00.00 ; Rising PSA level R97.20 ; Prediabetes R73.09 ; Pure hypercholesterolemia E78.00 ; Essential hypertension I10 ; Colon cancer screening Z12.11 and Depression screening Z13.31 Assessments Encounter Date Diagnosis (ICD Code) Assessment Notes Treatment Notes Treatment Clinical Notes Section Notes 11/04/2023 Prediabetes (ICD-10 - R73.09) 11/04/2023 Pure hypercholesterolemia (ICD-10 - E78.00) 02/03/2024 Rising PSA level (ICD-10 - R97.20) 05/03/[address] ine general physical examination (ICD-10 - Z00.00) 05/03/2024 Encounter for immunization (ICD-10 - Z23) 08/07/2024 Esophageal obstructi on (ICD-10 - K22.2) 11/11/2023 Gastroesophageal ref lux disease without esophagitis (ICD-10 - K21.9) is not being bothered so doesn't want meds.will contnue to monitor 11/11/2023 Prediabetes (ICD-10 - R73.09) needs to diet 12/19/2023 Sebaceous cyst (ICD- 10 - L72.3) 12/19/2023 Local infection of t he skin and subcutaneous tissue, unspecified (ICD-10 - L08.9) referral to dr flores, patient verbalized understanding of medication and directions for use 05/10/2024 Esophageal obstructi on (ICD-10 - K22.2) referral to dr alfredo 05/10/2024 Annual physical exam (ICD-10 - Z00.00) labs reviewed and discussed with patient 05/03/2024 Prediabetes (ICD-10 - R73.09) 11/11/2023 Pure hypercholesterolemia (ICD-10 - E78.00) good ldl, will continue cuirrent regiment 05/10/2024 Rising PSA level (ICD-10 - R97.20) will continue to monitor 05/03/2024 Pure hypercholesterolemia (ICD-10 - E78.00) 11/11/2023 Essential hypertensi on (ICD-10 - I10) well controlled, will continue current regiment 05/10/2024 Prediabetes (ICD-10 - R73.09) encourarage exercise and weight loss, no need for medication at this time 05/03/2024 Essential hypertensi on (ICD-10 - I10) 05/10/2024 Pure hypercholesterolemia (ICD-10 - E78.00) doing well on meds, will contnue curent regiment 05/10/2024 Essential hypertensi on (ICD-10 - I10) stable, will continue current regiment 05/10/2024 Colon cancer screeni ng (ICD-10 - Z12.11) guaiac negative 05/10/2024 Depression screening (ICD-10 - Z13.31) negative screening Plan Of Treatment Pending Test Test Name Order Date Electrocardiogram (EKG) 10/06/2012 Electrocardiogram (EKG) 11/06/2015 Electrocardiogram (EKG) 11/19/2016 CT ABD & PELVIS NO CONTRAST 01/26/2018 [place] barium swallow 05/05/2023 Next Appt Details Provider Name:Sher lawrence, 11/08/2024 07:00:00 AM, [address] [place] [address], [address], [place], [place], [phone], Provider Name:Sher lawrence, 11/16/2024 09:00:00 AM, [address] [place] [address], [facility], [place], [place], [phone], Provider Name:Sher Carvalho ier, 05/09/2025 07:30:00 AM, [address], [address], [place], [place], [phone], Provider Name:Sher Carvalho ier, 05/16/2025 08:30:00 AM, [address], [address], [place], [place], [phone], Insurance Providers Payer Name Payer Address Payer Phone Subscriber Number Group Number Insured Name Patient Relationship to Insured Coverage Start Date Coverage End Date [facility] [address] [place], [place] [phone] [id number] Braxton Carrillo Self - patient is the insured Medical (General) History Medical History History ICD Code Refuses flu shot07-10-12 Colonoscopy -04/07/[address] Alfredo (had colon polyp) - 5 year repeattubular adenoma: Colonoscopy 10/16/21 tubular adenoma repeat 5 years
== END 2024-08-07 10:23 | disposition home or self-care (01) ==
LOC: HO.LNP 10:22
PROVIDERS: Visit Provider Internal Medicine
DX: Z12.5 Encounter for screening for malignant neoplasm of prostate (principal); K22.2 Esophageal obstruction
CPT/HCPCS: 84153

== ENCOUNTER 2024-11-08 10:41 | Outpatient (REF) | payer BC, SELFPAY ==
[2024-11-08 11:12] LABS: Alanine Aminotransferase 52 U/L (0-40); Albumin Level 4.3 g/dL (3.5-5.0); Alkaline Phosphatase 73 U/L (39-117); Aspartate Amino Transferase 34 U/L (5-37); Bilirubin Direct 0.3 mg/dL (0.0-0.5); Cholesterol 164 mg/dL (<200); HDL Cholesterol 37 mg/dL (>40); LDL Cholesterol Calculated 100 mg/dL (<100); Total Protein 6.7 g/dL (6.5-8.0); Triglycerides 137 mg/dL (<150)
[2024-11-08 11:35] LABS: PSA,Total (Free>4and<10) 3.63 ng/mL (0.00-4.00)
[2024-11-08 11:59] LABS: Reflex LDLD? No
--- OUTSIDE RECORDS SUMMARY | 2024-11-08 12:32 | XMS_ITS ---
Author Organization [facility] Address [address] [place] [address] Care Team Providers Care Shellfish Weigher Name Role Phone Sher Fuentes MD Primary Care Provider Georges Lehman Jr Unavailable [phone] Allergies No Known Allergies REASON FOR VISIT Patient presents today for SANON'S Medications Medication SIG (Take, Route, Frequency, Duration) Notes Start Date End Date Status Valsartan-hydroCHLOROthiazi de 160-12.5 MG TAKE ONE TABLET BY MOUTH EVERY DAY Oral for 30 Active Atorvastatin Calcium 80 MG 1 tablet Oral ly Once a day Active Omeprazole 40 MG 1 capsule 1/2 to 1 h our before morning meal Orally Once a day for 30 day(s) 06/28/2024 Active Social History Tobacco Use: Social History [...] Problem Status W/U Status Risk Notes Problem Barretts esophagus (K22.70) Active confirmed Problem Eosinophilic esophagitis (284483076) Eosinophilic esophagitis (K20.0) Active confirmed Vital Signs Temperature 98.6 degrees Fahrenheit 10/25/19 25 Blood pressure systolic 001 mm Hg 10/25/19 25 Blood pressure diastolic 01 mm Hg 025 Height 73.5 in 10/24/2024 Weight 217.2 lbs 10/24/2024 BMI 28.26 kg/m2 10/24/2024 Encounters Encounter Location Date Provider Diagnosis [employer] [facility] [address] [place] [address] 10/24/2024 Georges Aguirre Jr Barretts esophagus K22.70 ; Eosinophilic esophagitis K20.0 and Colon polyps K63.5 Assessments Encounter Date Diagnosis (ICD Code) Assessment Notes Treatment Notes Treatment Clinical Notes Section Notes 10/24/2024 Barretts esophagus (ICD-10 - K22.70) We discussed Sanon's esophagus and eosinophilic esophagitis today. We discussed the pathophysiology of both disorders. He is doing well on omeprazole and will continue this. He will be due for follow-up endoscopy in May 2026. Follow-up colonoscopy for his colon polyps will be in 3 years. We discussed this today. Office visit in 1 year, sooner if necessary. Today's visit was 30 minutes. 10/24/2024 Eosinophilic esophagitis (ICD-10 - K20.0) We discussed Sanon's esophagus and eosinophilic esophagitis today. We discussed the pathophysiology of both disorders. He is doing well on omeprazole and will continue this. He will be due for follow-up endoscopy in May 2026. Follow-up colonoscopy for his colon polyps will be in 3 years. We discussed this today. Office visit in 1 year, sooner if necessary. Today's visit was 30 minutes. 10/24/2024 Colon polyps (ICD-10 - K63.5) We discussed Sanon's esophagus and eosinophilic esophagitis today. We discussed the pathophysiology of both disorders. He is doing well on omeprazole and will continue this. He will be due for follow-up endoscopy in May 2026. Follow-up colonoscopy for his colon polyps will be in 3 years. We discussed this today. Office visit in 1 year, sooner if necessary. Today's visit was 30 minutes. Plan Of Treatment Next Appt Details Follow Up: 1 Year, Reason: Provider Name:Georges frazier Jr, 10/23/2025 09:20:00 AM, [address], [address], [place], [address], Progress Notes * YAIMA OTERO: [birth year] (58 yo M)Acc No.[id number]:10/24/2024 Progress Notes Patient:?SWAPNIL OTERO Provider:?Georges Aguirre MD :1965???Age:58 Y???Sex:Male Evangelista e:10/24/2024 Address:[address] [place], [place] [id number] Pcp:Sher Fuentes MD Subjective: * Chief Complaints: * ???1. Patient presents today for SANON'S. * HPI: ???New symptom(s):? Swapnil is a pleasant 58-year-old man seen today in follow-up. He underwent upper endoscopy in May 2024 because of dysphagia, and an abnormal upper GI series. This showed changes consistent with Sanon's esophagus at the EG junction. He also had changes consistent with eosinophilic esophagitis. We reviewed these results today. He continues on omeprazole 40 mg daily. This controls his reflux symptoms well. He has had no dysphagia since we saw him last. Colonoscopy at the same time showed adenomatous and serrated colon polyps. 3- year follow-up was recommended. We reviewed this today. He has no complaints of dysphagia, and he has no bowel problems. Weight and appetite have been stable. * Medical History:?Hyperlipide barbra, Hyperglycemia, Hypertension, Sanon's esophagus and eosinophilic esophagitis, EGD 06/23, no dysplasia, 2-year follow-up, Colonoscopy 06/23, tubular adenomas and sessile serrated polyp, 3-year follow-up. * Family History:?Father: unkn own.?Mother: unknown.? pt was adopted. * Social History:?Tobacco Use:?Tobacco Use/Smoking?Patient is a?former smoker,?When did you stop smoking??07/06/2017,?How long has it been since you last smoked??1-5 years.?Drugs/Alcohol:?Alcohol Screen?Points: 1, Interpretation: Negative.?Miscellaneous:?Marital status: . 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 * Medications:?Taking Atorvast atin Calcium 80 MG Tablet 1 tablet Orally Once a day , Taking Valsartan-hydroCHLOROthiazide 160-12.5 MG Tablet TAKE ONE TABLET BY MOUTH EVERY DAY Oral , Taking Omeprazole 40 MG Capsule Delayed Release 1 capsule 1/2 to 1 hour before morning meal Orally Once a day , Medication List reviewed and reconciled with the patient * Allergies:?N.K.D.A. Objective: * Vitals:?Wt:217.2lbs, Ht: 73. 5 in, BMI:28.26Index, BP:001/01mm Hg, Temp:98.6, Wt- k.52. * Examination: ???General Examination: ???On examination today, he appears well. Skin is anicteric. Lungs are clear. Heart shows a regular rate and rhythm. Abdomen is soft without focal masses or tenderness. Extremities are without edema. Assessment: * Assessment: 1.?Barretts esophagus - K22. 70 (Primary)???2.?Eosinophilic esophagitis - K20.0???3.?Colon polyps - K63.5??? We discussed Sanon's esoph steffany and eosinophilic esophagitis today. We discussed the pathophysiology of both disorders. He is doing well on omeprazole and will continue this. He will be due for follow-up endoscopy in May 2026. Follow-up colonoscopy for his colon polyps will be in 3 years. We discussed this today. Office visit in 1 year, sooner if necessary. Today's visit was 30 minutes. Plan: * Treatment: * Procedure Codes:?3017F COLOR ECTAL CA SCREEN DOC REV, G9903 Pt scrn tbco id as non user, G9744 PATIENT NOT ELIG D/T ACTIVE DX HTN * Preventive Medicine:? ??Counseling:?Care goal follow-up plan:?Above Normal BMI Follow-up?Dietary management education, guidance, and counseling,?BMI management provided?Yes.? * Follow Up:?1 Year * * Sign off status: Completed true * Provider:?Georges Aguirre MD Date:?0 10/24/2024 Generated for So perkins/Sherif/Edsonitting on:?11/08/2024 12:31 PM EDT History and Physical Notes * HPI (History of Present Illness) Category Sub-Category Detail Notes Category Not es New symptom(s) Swapnil is a pleasant 58-year-old man seen today in follow-up. He underwent upper endoscopy in May 2024 because of dysphagia, and an abnormal upper GI series. This showed changes consistent with Sanon's esophagus at the EG junction. He also had changes consistent with eosinophilic esophagitis. We reviewed these results today. He continues on omeprazole 40 mg daily. This controls his reflux symptoms well. He has had no dysphagia since we saw him last. Colonoscopy at the same time showed adenomatous and serrated colon polyps. 3-year follow-up was recommended. We reviewed this today. He has no complaints of dysphagia, and he has no bowel problems. Weight and appetite have been stable. Examination Category Sub-Category Detail Notes Category Not es General Examination On exami nation today, he appears well. Skin is anicteric. Lungs are clear. Heart shows a regular rate and rhythm. Abdomen is soft without focal masses or tenderness. Extremities are without edema.
== END 2024-11-08 10:42 | disposition home or self-care (01) ==
LOC: HO.LNP 10:41
PROVIDERS: Visit Provider Internal Medicine
DX: E78.00 Pure hypercholesterolemia, unspecified (principal); R97.20 Elevated prostate specific antigen [PSA]; Z12.5 Encounter for screening for malignant neoplasm of prostate
CPT/HCPCS: 80061; 80076; 84153

== ENCOUNTER 2025-05-09 10:29 | Outpatient (REF) | payer BC, SELFPAY ==
[2025-05-09 10:35] LABS: MANUAL DIFF FLAG NO
[2025-05-09 10:44] LABS: Appearance Urine Clear; Glucose Urine UA Negative (Negative); Hematocrit 45.7 % (42.0-52.0); Hemoglobin 15.9 g/dl (14.0-18.0); Imm Gran Abs Auto 0.02 X10*3/uL (0.00-0.03); Imm Gran Pct Auto 0.4 % (0.0-0.4); Lymphocytes Absolute Auto 1.6 X10*3/uL (1.2-4.9); Mean Corpuscular HGB Conc 34.8 g/dl (31.0-36.0); Mean Corpuscular Hemoglobin 30.1 pg (27.0-33.0); Mean Corpuscular Volume 86.4 fL (80.0-98.0); NRBC Abs Auto 0.000 X10*3/uL (0.0-0.012); NRBC Pct Auto 0.0 /100WBC (0.0-0.2); PH 6.5 (5.0-9.0); Platelet Count 268 X10*3/uL (160-400); Red Blood Count 5.29 X10*6/uL (4.60-5.80); Specific Gravity - Urine 1.025 (1.005-1.025); White Blood Count 5.4 X10*3/uL (4.8-10.8)
[2025-05-09 10:59] LABS: Albumin Level 4.3 g/dL (3.5-5.0); Alkaline Phosphatase 80 U/L (39-117); Anion Gap 13 (12-20); Aspartate Amino Transferase 44 U/L (5-37); Blood Urea Nitrogen 21 mg/dL (9-16); Calcium 9.2 mg/dL (8.4-10.2); Carbon Dioxide 26 mmol/L (22-29); Chloride 106 mmol/L (96-108); Cholesterol 149 mg/dL (<200); Estimated Glomerular Filt Rate 50; HDL Cholesterol 40 mg/dL (>40); Potassium 3.8 mmol/L (3.3-5.1); Sodium 141 mmol/L (135-145); Total Protein 6.8 g/dL (6.5-8.0); Triglycerides 78 mg/dL (<150)
[2025-05-09 11:13] LABS: Alanine Aminotransferase 46 U/L (0-40)
[2025-05-09 11:18] LABS: PSA,Total (Free>4and<10) 3.02 ng/mL (0.00-4.00)
[2025-05-09 11:29] LABS: Microalbum/Creatinine Ratio Ur 3.1 ug/mg cr (<30)
== END 2025-05-09 10:30 | disposition home or self-care (01) ==
LOC: HO.LNP 10:29
PROVIDERS: Visit Provider Internal Medicine
DX: Z00.00 Encounter for general adult medical examination without abnormal findings (principal); E78.00 Pure hypercholesterolemia, unspecified; R73.09 Other abnormal glucose; I10 Essential (primary) hypertension; Z12.5 Encounter for screening for malignant neoplasm of prostate
CPT/HCPCS: 80053; 80061; 81001; 82043; 82570; 83036; 84153; 85025